=== PATIENT | male | born 1965 | race Hispanic/Latino ===

== ENCOUNTER 2020-05-10 10:20 | Inpatient (IN) | payer SELFPAY ==
[2020-05-10 11:31] LABS: Absolute Lymphocytes (CBC) 0.7 K/uL (0.7-4.9); Basophils % 0.3 % (0-1.3); Hematocrit 45.3 % (39.6-49.0); Lymphocytes % 14.3 % (15.3-44.8); MPV 8.4 fL (7.6-11.3); RBC Red Blood Cell Count 5.24 M/uL (4.33-5.43)
[2020-05-10 11:33] LABS: Protime INR 1.04
[2020-05-10 11:41] LABS: Arterial Blood Carboxyhemoglob 1.2 % (0-1.5); Blood Gas Oxyhemoglobin 94.9 % (94-97); Blood O2 Saturation 96.8 % (92-98.5)
--- NOTE | 2020-05-10 11:50 | RAD REPORT ---
EXAM DESCRIPTION: RAD - Chest Single View - 05/10/2020 11:29 am CLINICAL HISTORY: r/o pneumonia Chest pain. COMPARISON: No comparisons FINDINGS: Portable technique limits examination quality. Severe bilateral pulmonary opacities noted particularly the right likely compatible with pulmonary in fection. The heart is upper limit normal in size.
[2020-05-10 11:53] LABS: Albumin 3.2 g/dL (3.4-5.0); Bilirubin Direct 0.3 mg/dL (0-0.2); Bilirubin Total 0.5 mg/dL (0.2-1.0); Ferritin 890.5 ng/mL (26-388); Potassium 3.8 mmol/L (3.5-5.1); Protein, Total 7.8 g/dL (6.4-8.2)
[2020-05-10] MEDS ORDERED: ACETAMINOPHEN 500 MG TAB ONE (11:55)
[2020-05-10] MEDS ORDERED: NA CHLORIDE 0.9% 500 ML ONE (11:55)
[2020-05-10] MEDS ORDERED: NA CHLORIDE 0.9% 2,000 ML ONE (11:55)
[2020-05-10] MEDS ORDERED: METHYLPREDNISOLONE 125 MG INJ ONE (11:55)
[2020-05-10] MEDS ORDERED: CEFEPIME/SWI 1gm 20 ML ONE (11:56)
[2020-05-10] MEDS ORDERED: AZITHROMYCIN IV 500 MG in NA CHLORIDE 0.9% 250 ML IVPB ONE (12:00)
--- NOTE | 2020-05-10 12:36 | RAD REPORT ---
EXAM DESCRIPTION: CT - Chest For Pe Angio - 05/10/2020 12:31 pm CLINICAL HISTORY: Chest pain. Chest pain;SOB COMPARISON: No comparisons TECHNIQUE: CT angiogram of the pulmonary arteries was performed with MIP. All CT scans are performed using dose optimization technique as appropriate and may include automated exposure control or mA/KV adjustment according to patient size. FINDINGS: No evidence of pulmonary thromboembolism. No acute aortic finding demonstrated. Significant airspace consolidation is present involving the right lung. Moderate interstitial and air space opacity involves the left lung. No significant pericardial or pleural fluid. No concerning bony finding. Fatty liver. IMPRESSION: No evidence of pulmonary thromboembolism. Significant airspace consolidation is present, greater on the right, most compatible with pneumonia.
--- NOTE | 2020-05-10 13:26 | ER ---
Nurse's Notes [facility] Name: Beck Weber Age: 55 yrs Sex: Male : 1965 Arrival Date: 05/10/2020 Time: 10:24 Bed 18 Private MD: Diagnosis: Pneumonia due to other specified infectious organisms;Respiratory failure, unspecified with hypoxia;Coronavirus infection, unspecified Presentation: 05/10 10:43 Chief complaint: Patient states: tested positive for COVID last Saturday05-02-20, has iw been having increasing SOB, is 73% on RA, placed on 5 L NC up to 83%. Coronavirus screen: Client presents with at least one sign or symptom that may indicate coronavirus-19. Standard/surgical mask placed on the client. Provider contacted for isolation considerations. Ebola Screen: Patient negative for fever greater than or equal to 101.5 degrees Fahrenheit, and additional compatible Ebola Virus Disease symptoms Patient denies exposure to infectious person. Patient denies travel to an Ebola-affected area in the 21 days before illness onset. No symptoms or risks identified at this time. Initial Sepsis Screen: Does the patient meet any 2 criteria? RR > 20 per min. HR > 90 bpm. Does the patient have a suspected source of infection? Yes: Productive cough/pneumonia. 10:43 Method Of Arrival: Ambulatory iw 10:46 Risk Assessment: Do you want to hurt yourself or someone else? Patient reports no iw desire to harm self or others. Onset of symptoms was May 02, 2020. 10:46 Acuity: PAUL 2 iw Historical: - Allergies: 10:46 No Known Allergies; iw - Home Meds: 10:46 unknown BP med [Active]; iw - PMHx: 10:46 Hypertension; iw - PSHx: 10:46 None; iw - Immunization history:: Adult Immunizations unknown. - Social history:: Smoking status: unknown. Screenin:13 Abuse screen: Denies threats or abuse. Nutritional screening: No deficits noted. jd3 Tuberculosis screening: No symptoms or risk factors identified. Fall Risk IV access (20 points). Ambulatory Aid- None/Bed Rest/Nurse Assist (0 pts). Gait- Normal/Bed Rest/Wheelchair (0 pts) Mental Status- Oriented to own ability (0 pts). Total Corey Fall Scale indicates No Risk (0-24 pts). Assessment: 10:55 General: Appears uncomfortable, Behavior is calm, cooperative, appropriate for age, jd3 anxious. Pain: Complains of pain in chest Pain does not radiate. Quality of pain is described as pressure, Pain began gradually, Also complains of shortness of breath. Neuro: Level of Consciousness is awake, alert, obeys commands, Oriented to person, place, time, situation. Cardiovascular: Heart tones present Capillary refill < 3 seconds Patient's skin is warm and dry. Rhythm is sinus tachycardia. Respiratory: Reports shortness of breath at rest Airway is patent Respiratory effort is labored, Respiratory pattern is tachypnea Breath sounds are diminished bilaterally. GI: No signs and/or symptoms were reported involving the gastrointestinal system. : No signs and/or symptoms were reported regarding the genitourinary system. EENT: No signs and/or symptoms were reported regarding the EENT system. Derm: Skin is intact, Skin is dry, Skin is normal, Skin temperature is warm. Musculoskeletal: Circulation, motion, and sensation intact. Range of motion: intact in all extremities. 11:50 Reassessment: Patient and/or family updated on plan of care and expected duration. Pain jd3 level reassessed. Patient is alert, oriented x 3, equal unlabored respirations, skin warm/dry/pink. Patient states feeling better. Respiratory: Airway is patent Respiratory effort is even, unlabored, Respiratory pattern is symmetrical, tachypnea. 12:56 Reassessment: Patient and/or family updated on plan of care and expected duration. Pain jd3 level reassessed. Patient is alert, oriented x 3, equal unlabored respirations, skin warm/dry/pink. Patient states feeling better. 14:00 Reassessment: Patient appears in no apparent distress at this time. Patient and/or jd3 family updated on plan of care and expected duration. Pain level reassessed. Patient is alert, oriented x 3, equal unlabored respirations, skin warm/dry/pink. respiratory therapy at bedside. charting continued in [facility]. Vital Signs: 10:43 BP 141 / 98; Pulse 117; Resp 28 S; Temp 100.6(TE); Pulse Ox 73% on R/A; iw 11:08 Weight 86.18 kg; jd3 12:55 BP 120 / 83; Pulse 100; Resp 22 S; Pulse Ox 96% on Non-rebreather mask; jd3 14:00 BP 134 / 87; Pulse 98; Resp 22 S; Pulse Ox 95% on Non-rebreather mask; jd3 ED Course: 10:24 Patient arrived in ED. as 10:36 Zeyad Heck PA is PHCP. cp 10:36 Michelle Cali MD is Attending Physician. cp 10:46 Triage completed. iw 10:55 Mir Hameed RN is Primary Nurse. jd3 10:55 Inserted saline lock: 20 gauge in right antecubital area, using aseptic technique. jd3 Blood collected. 11:09 Arm band placed on. jd3 12:42 CT Chest For PE Angio In Process Unspecified. EDMS 13:06 Anil Zuniga DO is Hospitalizing Provider. cp 13:13 Oxygen administration via non-rebreather mask \T\ 15L/min. jd3 14:02 No provider procedures requiring assistance completed. Patient admitted, IV remains in jd3 place. 14:02 Patient has correct armband on for positive identification. Placed in gown. Bed in low jd3 position. Call light in reach. Side rails up X2. case monitor on. Pulse ox on. NIBP on. 21:21 Urine Culture Sent. ds4 21:21 Urine Microscopic Only Sent. ds4 Administered Medications: 12:05 Drug: Tylenol 1000 mg Route: PO; jd3 13:00 Follow up: Response: No adverse reaction; Temperature is decreased jd3 12:05 Drug: NS 0.9% (30 ml/kg) 30 ml/kg Route: IV; Rate: bolus; Site: right antecubital; jd3 13:00 Follow up: Response: No adverse reaction; IV Status: Order to discontinue infusion; IV jd3 Intake: 1500ml 12:05 Drug: SOLU-Medrol 125 mg Route: IVP; Site: right antecubital; jd3 13:00 Follow up: Response: No adverse reaction jd3 12:05 Drug: Cefepime 2 grams Route: IVPB; Rate: 200 ml/hr; Infused Over: 30 mins; Site: right jd3 antecubital; 13:00 Follow up: Response: No adverse reaction; IV Status: Completed infusion jd3 12:37 Drug: Zithromax 500 mg Route: IVPB; Infused Over: 1 hrs; Site: right antecubital; ca1 13:30 Follow up: Response: No adverse reaction; IV Status: Completed infusion jd3 Intake: 13:00 IV: 1500ml; Total: 1500ml. jd3 Outcome: 13:07 Decision to Hospitalize by Provider. cp 14:03 Admitted to ER Hold. Please see [facility] for further documentation. jd3 14:03 Condition: stable 14:03 Instructed on the need for admit, Demonstrated understanding of instructions. 05/12 20:59 Patient left the ED. ea Signatures: Dispatcher [employer] Leslie Guzman Irene, RN RN Raphael Rangel ds4 Zeyad Heck PA PA cp Jennifer Palacio RN Mir Molina ea, RN RN jd3 Kandi Gonzalez RN RN ca1 Corrections: (The following items were deleted from the chart) 05/10 19:43 19:43 Response: No adverse reaction jd3 jd3
--- NOTE | 2020-05-10 13:26 | EDPHYS ---
Physician Documentation [facility] Name: Beck Webre Age: 55 yrs Sex: Male : 1965 Arrival Date: 05/10/2020 Time: 10:24 Bed 18 Private MD: ED Physician Michelle Cali HPI: 05/10 11:00 This 55 yrs old Male presents to ER via Ambulatory with complaints of Chest cp Pain, Shortness Of Breath - covid+. 11:00 The patient has shortness of breath at rest. cp 11:00 Onset: The symptoms/episode began/occurred gradually, last week. Duration: The symptoms cp are continuous, and are steadily getting worse. Patient reports testing positive for COVID-19 on 05-02-2020. Increasing shortness of breath and worsening cough since last week. Reports fever. No currently taking any medications. Reports hospitalized with similar symptoms. Historical: - Allergies: 10:46 No Known Allergies; iw - Home Meds: 10:46 unknown BP med [Active]; iw - PMHx: 10:46 Hypertension; iw - PSHx: 10:46 None; iw - Immunization history:: Adult Immunizations unknown. - Social history:: Smoking status: unknown. ROS: 11:10 Constitutional: Positive for fever, Negative for poor PO intake. cp 11:10 Eyes: Negative for injury, pain, redness, and discharge. cp 11:10 ENT: Negative for ear pain, sore throat, difficulty swallowing, difficulty handling secretions. 11:10 Cardiovascular: Negative for chest pain, edema, palpitations. 11:10 Respiratory: Positive for cough, "sounds productive", shortness of breath, at rest. 11:10 Abdomen/GI: Negative for abdominal pain, nausea, vomiting, and diarrhea. 11:10 Back: Negative for radiated pain. 11:10 Neuro: Negative for altered mental status, headache, syncope, weakness. 11:10 All other systems are negative. Exam: 11:15 Head/Face: Normocephalic, atraumatic. cp 11:15 Constitutional: The patient appears alert, awake, non-diaphoretic, non-toxic, well developed, well nourished, in obvious distress, moderately distressed. 11:15 Eyes: Periorbital structures: appear normal, Conjunctiva: normal, no exudate, no cp injection, Sclera: no appreciated abnormality, Lids and lashes: appear normal, bilaterally. 11:15 ENT: External ear(s): are unremarkable, Nose: is normal, Mouth: Lips: moist, Oral mucosa: moist, Posterior pharynx: Airway: no evidence of obstruction, patent. 11:15 Neck: ROM/movement: is normal, is supple, without pain, no range of motions limitations. 11:15 Chest/axilla: Inspection: normal, Palpation: is normal, no crepitus, no tenderness. 11:15 Cardiovascular: Rate: tachycardic, Rhythm: regular, Edema: is not appreciated, JVD: is not appreciated. 11:15 Respiratory: moderate respiratory distress is noted, Respirations: labored breathing, that is moderate, intercostal retractions, are absent, Breath sounds: bronchial sounds, that are mild, are heard diffusely, decreased breath sounds, that are moderate, throughout, stridor, is not appreciated, wheezing: is not appreciated. 11:15 Abdomen/GI: Inspection: abdomen appears normal, Bowel sounds: active, all quadrants, Palpation: abdomen is soft and non-tender, in all quadrants, rebound tenderness, is not appreciated, voluntary guarding, is not appreciated, involuntary guarding, is not appreciated. 11:15 Back: pain, is absent, ROM is normal. 11:15 Skin: no rash present. 11:15 Neuro: Orientation: to person, place \\T\\ time. Mentation: is normal, Cerebellar function: is grossly normal, Motor: moves all fours, strength is normal, Sensation: is normal. 11:30 ECG was reviewed by the Attending Physician. cp Vital Signs: 10:43 BP 141 / 98; Pulse 117; Resp 28 S; Temp 100.6(TE); Pulse Ox 73% on R/A; iw 11:08 Weight 86.18 kg; jd3 12:55 BP 120 / 83; Pulse 100; Resp 22 S; Pulse Ox 96% on Non-rebreather mask; jd3 14:00 BP 134 / 87; Pulse 98; Resp 22 S; Pulse Ox 95% on Non-rebreather mask; jd3 MDM: 10:53 Patient medically screened. cp 13:04 Physician consultation: Anil Zuniga DO was called at 13:05, was contacted at 13:05, cp regarding admission, to the telemetry unit. patient's condition, and will see patient in ED, shortly. 13:06 Data reviewed: vital signs, nurses notes, lab test result(s), EKG, radiologic studies, cp CT scan, plain films, and as a result, I will admit patient. 13:06 Test interpretation: by ED physician or midlevel provider: ECG, plain radiologic cp studies. 05/10 10:56 Order name: ABG cp 05/10 10:56 Order name: Urine Culture 05/10 10:56 Order name: Blood Culture Adult (2) 05/10 10:56 Order name: Urine Microscopic Only 05/10 11:30 Order name: ABG 05/10 11:44 Order name: Lactate; Complete Time: 11:57 EDMS 05/10 11:44 Order name: CBC with Automated Diff; Complete Time: 11:57 EDMS 05/10 13:04 Interpretation: Normal except: CRYSTAL% 79.2; LYM% 14.3. 05/10 11:44 Order name: Protime (+INR); Complete Time: 11:57 EDMS 05/10 11:44 Order name: PTT, Activated Partial Thromb; Complete Time: 11:57 EDMS 05/10 11:44 Order name: D-Dimer; Complete Time: 11:57 EDMS 05/10 11:54 Order name: Basic Metabolic Panel; Complete Time: 11:57 EDMS 05/10 11:54 Order name: Liver (Hepatic) Function; Complete Time: 11:57 EDMS 05/10 11:54 Order name: C-Reactive Protein; Complete Time: 11:57 EDMS 05/10 11:54 Order name: Lipase; Complete Time: 11:57 EDMS 05/10 11:54 Order name: Ferritin; Complete Time: 11:57 EDMS 05/10 12:06 Order name: ABG Arterial Blood Gas; Complete Time: 12:59 EDMS 05/10 10:56 Order name: Chest Single View XRAY 05/10 10:56 Order name: Accucheck; Complete Time: 11:07 cp 05/10 10:56 Order name: Cardiac monitoring; Complete Time: 11:32 cp 05/10 10:56 Order name: EKG - Nurse/Tech; Complete Time: 11:32 cp 05/10 10:56 Order name: IV Saline Lock - Large Bore; Complete Time: 11:07 cp 05/10 10:56 Order name: Labs collected and sent; Complete Time: 11:08 cp 05/10 10:56 Order name: O2 Per Protocol; Complete Time: 11:08 cp 05/10 10:56 Order name: O2 Sat Monitoring; Complete Time: 11:08 cp 05/10 11:51 Order name: RAD; Complete Time: 11:57 EDMS 05/10 11:58 Order name: CT Chest For PE Angio; Complete Time: 12:59 cp 05/10 12:25 Order name: Procalcitonin EDMS 05/10 12:25 Order name: Blood Culture EDMS 05/10 12:25 Order name: Blood Culture EDMS 05/10 13:56 Order name: COVID-19/FLU A+B EDMS 05/10 21:22 Order name: Urine Dipstick--Ancillary (enter results) ds4 05/10 21:27 Order name: Urine Dipstick-Ancillary EDMS 05/11 06:08 Order name: Comprehensive Metabolic Panel EDMS 05/11 06:08 Order name: Liver (Hepatic) Function EDMS 05/11 06:08 Order name: C-Reactive Protein EDMS 05/11 06:08 Order name: Ferritin EDMS 05/11 16:16 Order name: Urinalysis EDMS 05/11 16:22 Order name: Urine Microscopic Only EDMS 05/12 06:01 Order name: Comprehensive Metabolic Panel EDMS 05/12 06:01 Order name: Liver (Hepatic) Function EDMS 05/12 06:01 Order name: C-Reactive Protein EDMS 05/12 06:01 Order name: Magnesium EDMS 05/12 06:01 Order name: Ferritin EDMS 05/10 10:56 Order name: Urine Dipstick-Ancillary (obtain specimen); Complete Time: 21:21 cp EC:30 Rate is 108 beats/min. Rhythm is regular. OH interval is normal. QRS interval is cp normal. QT interval is normal. T waves are Inverted in lead aVR. Interpreted by me. Reviewed by me. Administered Medications: 12:05 Drug: Tylenol 1000 mg Route: PO; jd3 13:00 Follow up: Response: No adverse reaction; Temperature is decreased jd3 12:05 Drug: NS 0.9% (30 ml/kg) 30 ml/kg Route: IV; Rate: bolus; Site: right antecubital; jd3 13:00 Follow up: Response: No adverse reaction; IV Status: Order to discontinue infusion; IV jd3 Intake: 1500ml 12:05 Drug: SOLU-Medrol 125 mg Route: IVP; Site: right antecubital; jd3 13:00 Follow up: Response: No adverse reaction jd3 12:05 Drug: Cefepime 2 grams Route: IVPB; Rate: 200 ml/hr; Infused Over: 30 mins; Site: right jd3 antecubital; 13:00 Follow up: Response: No adverse reaction; IV Status: Completed infusion jd3 12:37 Drug: Zithromax 500 mg Route: IVPB; Infused Over: 1 hrs; Site: right antecubital; ca1 13:30 Follow up: Response: No adverse reaction; IV Status: Completed infusion jd3 Disposition: 05/10/20 13:07 Hospitalization ordered by Anil Zuniga for Inpatient Admission. Preliminary diagnosis are Pneumonia due to other specified infectious organisms, Respiratory failure, unspecified with hypoxia, Coronavirus infection, unspecified. - Bed requested for Telemetry/MedSurg (Inpatient). - Status is Inpatient Admission. ea - Condition is Serious. - Problem is new. - Symptoms have improved. Addendum: 05/16/2020 19:18 Co-signature as Attending Physician, Michelle Cali MD. m a2 Signatures: Dispatcher [employer] EDMS Dinah Rogers Diana, RN RN dw Williams, Irene, RN RN iw Page, Corey, PA PA cp Antunez, Elena, RN RN ea Davies, Jonathon, RN RN jd3 Alzahri, Mohammad, MD MD ga2 Kandi Gonzalez RN RN ca1 Corrections: (The following items were deleted from the chart) 05/10 12:46 11:46 CORONAVIRUS+MR.LAB.BRZ ordered. EDMS EDMS 12:47 11:46 Influenza Screen (A \\T\\ B)+BA.LAB.BRZ ordered. EDMS EDMS 13:12 11:45 CBC+H.LAB.BRZ ordered. EDMS EDMS 13:15 11:45 BASIC METABOLIC PANEL+C.LAB.BRZ ordered. EDMS EDMS 13:15 11:45 HEPATIC FUNCTION+C.LAB.BRZ ordered. EDNY EDMS 13:15 11:45 LIPASE+C.LAB.BRZ ordered. EDNY EDMS 13:15 11:46 Procalcitonin+C.LAB.BRZ ordered. EDNY EDMS 13:15 11:46 PROTIME (+INR)+COAG.LAB.BRZ ordered. EDNY EDMS 13:15 11:46 PTT, ACTIVATED+COAG.LAB.BRZ ordered. EDNY EDNY 13:15 11:46 TROPONIN (EMERG DEPT USE ONLY)+C.LAB.BRZ ordered. EDNY EDMS 13:15 11:46 C-REACTIVE PROTEIN+C.LAB.BRZ ordered. EDNY EDMS 13:15 11:46 D-DIMER+COAG.LAB.BRZ ordered. [facility] EDNY 13:15 11:46 FERRITIN+C.LAB.BRZ ordered. [facility] EDNY 13:16 11:45 LACTATE+C.LAB.BRZ ordered. [facility] EDNY 13:29 13:07 Hospitalization Ordered by Anil Zuniga DO for Inpatient Admission. Preliminary bd diagnosis is Pneumonia due to other specified infectious organisms; Respiratory failure, unspecified with hypoxia; Coronavirus infection, unspecified. Bed requested for Telemetry/MedSurg (Inpatient). Status is Inpatient Admission. Condition is Serious. Problem is new. Symptoms have improved. cp / 18:42 05/10 13:29 05/10/2020 13:07 Hospitalization Ordered by Anil Zuniga DO for Inpatient dw Admission. Preliminary diagnosis is Pneumonia due to other specified infectious organisms; Respiratory failure, unspecified with hypoxia; Coronavirus infection, unspecified. Bed requested for [facility] ER HOLD. Status is Inpatient Admission. Condition is Serious. Problem is new. Symptoms have improved. bd 05/12 18:42 18:42 05/10/2020 13:07 Hospitalization Ordered by Anil Zuniga DO for Inpatient dw Admission. Preliminary diagnosis is Pneumonia due to other specified infectious organisms; Respiratory failure, unspecified with hypoxia; Coronavirus infection, unspecified. Bed requested for Telemetry/MedSurg (Inpatient). Status is Inpatient Admission. Condition is Serious. Problem is new. Symptoms have improved. dw 20:59 18:42 05/10/2020 13:07 Hospitalization Ordered by Anil Prezas DO for Inpatient ea Admission. Preliminary diagnosis is Pneumonia due to other specified infectious organisms; Respiratory failure, unspecified with hypoxia; Coronavirus infection, unspecified. Bed requested for Telemetry/MedSurg (Inpatient). Status is Inpatient Admission. Condition is Serious. Problem is new. Symptoms have improved. dw
--- NOTE | 2020-05-10 13:40 | P.HP ---
Certification for Inpatient Patient admitted to: Inpatient With expected LOS: >2 Midnights Patient will require the following post-hospital care: None Practitioner: I am a practitioner with admitting privileges, knowledge of patient current condition, hospital course, and medical plan of care. Services: Services provided to patient in accordance with Admission requirements found in Title 42 Section 412.3 of the Code of Federal Regulations Patient History Date of Service: 05/10/20 Primary Care Provider: Caity Luna NP Reason for admission: Shortness of breath History of Present Illness: 55-year-old male with history of hypertension presented to the emergency room with increasing shortness of breath. Patient recently diagnosed with COVID 19 on 05/04/2020. was diagnosed around the same time and is currently hospitalize. He start to have increasing shortness of breath, fever, chills with body aches. Symptoms worsened. He denied any nausea, vomiting, diarrhea. He came to the ER for further evaluation. In the ER patient was found to be hypoxic with room-air saturations around mid 70s. Patient required initially nasal cannula then transition to non- rebreather. Oxygen saturations better. CT scan showed bilateral pneumonia. No pulmonary embolism noted. CRP elevated at 2 002, ferritin 890. White count 4.6, hemoglobin 15. Lactic acid normal. Pro calcitonin 0.11. Sodium 135, potassium 3.8. GFR 79. Glucose 104. Patient treated in the ER. Patient improved. Patient admitted for further evaluation and treatment. When I saw the patient ER, patient did not appear septic. Patient improved on non-rebreather. Allergies No Known Allergies Allergy (Unverified 10/10/11 09:21) - Past Medical/Surgical History Diabetic: No -: Hypertension Past Surgical History: Reviewed- Non-Contributory Psychosocial/ Personal History: Patient lives at home - Family History Family History: Reviewed- Non-Contributory - Social History Smoking Status: Never smoker Alcohol use: Yes CD- Drugs: No Caffeine use: No Place of Residence: Home Review of Systems General: Fever, Chills, Weakness, As per HPI Eyes: Unremarkable ENT: Unremarkable Respiratory: Cough, Shortness of Breath, SOB with Excertion, As per HPI Cardiovascular: Unremarkable Gastrointestinal: Unremarkable Genitourinary: Unremarkable Musculoskeletal: Unremarkable Integumentary: Unremarkable Neurological: Unremarkable Lymphatics: Unremarkable Physical Examination - Physical Exam General: Alert, In no apparent distress, Oriented x3, Cooperative HEENT: Atraumatic Neck: Supple Respiratory: Other (Patient currently on non-rebreather. Oxygen saturations around 95%.) Cardiovascular: Normal pulses Gastrointestinal: No guarding Integumentary: No erythema, No warmth, No cyanosis Neurological: Normal speech, Normal strength at 5/5 x4 extr, Normal tone, Normal affect - Studies Laboratory Data (last 24 hrs) 05/10/20 10:56: PT Cancelled, INR Cancelled, APTT Cancelled 05/10/20 10:56: WBC Cancelled, Hgb Cancelled, Hct Cancelled, Plt Count Cancelled 05/10/20 10:56: Sodium Cancelled, Potassium Cancelled, BUN Cancelled, Creatinine Cancelled, Glucose Cancelled, Total Bilirubin Cancelled, AST Cancelled, ALT Cancelled, Alkaline Phosphatase Cancelled, Lipase Cancelled 05/10/20 10:55: PT 12.3, INR 1.04, APTT 31.1 05/10/20 10:55: WBC 4.60, Hgb 15.0, Hct 45.3, Plt Count 181 05/10/20 10:55: Sodium 135 L, Potassium 3.8, BUN 18, Creatinine 0.98, Glucose 104, Total Bilirubin 0.5, AST 95 H, ALT 113 H, Alkaline Phosphatase 50, Lipase 8 7 Assessment and Plan - Plan Impression: Dyspnea secondary to acute respiratory failure with hypoxia related to bilateral COVID 19 pneumonia Hypertension Plan: Dyspnea secondary to acute respiratory failure with hypoxia related to bilateral COVID 19 pneumonia: Patient admitted for further evaluation and treatment. Continue IV Solu-Medrol, ivermectin, and supplementation. Discussed initiation of IV Remdesivir due to the severity of his symptoms. Pharmacy to monitor and a djust. Plan of care discussed with patient in detail. Patient agrees with plan of care. Will need to monitor liver function test while on Remdesivir. Continue monitor serial CRP and ferritin. Currently on non-rebreather. Patient would benefit with high-flow oxygen. Respiratory to wean down to nasal cannula. Pulmonology consulted to further evaluate. Will start Eliquis for DVT prophylaxis. Encourage incentive spirometer. Encourage proning. Continue monitor closely. Anticipate improvement over the next 72 hr. Hypertension: Continue home medication of lisinopril Discharge Plan: Home Plan to discharge in: Greater than 2 days - Advance Directives Does patient have a Living Will: No Does patient have a Durable POA for Healthcare: No - Code Status/Comfort Care Code Status Assessed: Yes (Patient is full code) Time Spent Managing Pts Care (In Minutes): 55
[2020-05-10 13:55] LABS: SARS-COV-2 RT PCR POSITIVE (NEGATIVE)
[2020-05-10] MEDS ORDERED: ALBUTEROL INHALER 60 PUFF/8 GM IH PRN (15:47)
[2020-05-10] MEDS ORDERED: ONDANSETRON 4 MG/2 ML VIAL IV PRN (15:47)
[2020-05-10] MEDS ORDERED: IVERMECTIN 3 MG TABLET PO ONE (16:00)
[2020-05-10 16:09] VITALS: BMI 35.5
[2020-05-10] MEDS ORDERED: Remdesivir 200 MG in NA CHLORIDE 0.9% 250 ML IV ONE (17:00)
[2020-05-10] MEDS ORDERED: METHYLPREDNISOLONE 40 MG INJ ONE (18:21)
[2020-05-10] MEDS: ASCORBIC ACID 500 MG TABLET PO SCH ×2 (18:30→21:03)
[2020-05-10] MEDS: METHYLPREDNISOLONE 125 MG INJ IV SCH (18:30)
[2020-05-10] MEDS: APIXABAN 5 MG TABLET PO SCH (21:01)
[2020-05-10] MEDS: THIAMINE HCL 100 MG TABLET PO SCH (21:02)
[2020-05-10] MEDS: MELATONIN 5 MG TABLET PO SCH (21:02)
[2020-05-10] MEDS: BENZONATATE 100 MG CAP PO PRN (21:03)
[2020-05-10] MEDS ORDERED: BENZONATATE 100 MG CAP PO ONE (21:12)
[2020-05-10] MEDS ORDERED: APIXABAN 5 MG TABLET ONE (21:12)
[2020-05-10] MEDS ORDERED: ASCORBIC ACID 500 MG TABLET ONE (21:12)
[2020-05-10] MEDS ORDERED: THIAMINE HCL 100 MG TABLET ONE (21:12)
[2020-05-10 21:27] LABS: Urine Blood NEGATIVE (NEG); Urine Glucose NEGATIVE (NEG); Urine Protein 1+ (NEG)
[2020-05-11] MEDS: METHYLPREDNISOLONE 125 MG INJ IV SCH ×3 (00:18→16:48)
[2020-05-11] MEDS ORDERED: METHYLPREDNISOLONE 125 MG INJ ONE ×3 (00:28→17:00)
[2020-05-11] MEDS: BENZONATATE 100 MG CAP PO PRN (04:30)
[2020-05-11] MEDS ORDERED: BENZONATATE 100 MG CAP PO ONE (04:35)
[2020-05-11 06:02] LABS: ALT/SGPT 82 U/L (12-78); AST/SGOT 58 U/L (15-37); Albumin 2.5 g/dL (3.4-5.0); Alkaline Phosphatase 52 U/L (45-117); BUN Blood Urea Nitrogen 17 mg/dL (7-18); Bicarbonate 26 mmol/L (21-32); Bilirubin Direct 0.2 mg/dL (0-0.2); Bilirubin Total 0.4 mg/dL (0.2-1.0); Ferritin 751.9 ng/mL (26-388); Glucose Level 156 mg/dL (74-106); Potassium 4.1 mmol/L (3.5-5.1); Protein, Total 6.6 g/dL (6.4-8.2); Sodium Level 138 mmol/L (136-145)
--- NOTE | 2020-05-11 08:28 | P.CNS ---
Date of Consult: 05/11/20 Primary Care Provider: Caity Luna NP Chief Complaint: Shortness of breath History of Present Illness: Patient is 55 years of age with a history hypertension admitted with increasing shortness of breath diagnosed with montgomery virus is is also symptomatic is a shortness of breath fever chills bodyaches is still requiring high concentrations of oxygen although is feeling slightly better Allergies No Known Allergies Allergy (Unverified 10/10/11 09:21) - Past Medical/Surgical History Diabetic: No -: Hypertension Psychosocial/ Personal History: Patient lives at home - Social History Alcohol use: No CD- Drugs: No Caffeine use: No Place of Residence: Home Review of Systems General: Weakness Respiratory: Cough, Shortness of Breath Physical Examination Temp Pulse Resp BP Pulse Ox 98.1 F 89 28 H 137/75 94 05/11/20 04:00 05/11/20 04:00 05/11/20 04:00 05/11/20 04:00 05/11/20 04:00 General: Alert, In no apparent distress, Oriented x3 Respiratory: Clear to auscultation bilaterally, Diminished Cardiovascular: No edema, Regular rate/rhythm Laboratory Data (last 24 hrs) 05/10/20 10:56: PT Cancelled, INR Cancelled, APTT Cancelled 05/10/20 10:56: WBC Cancelled, Hgb Cancelled, Hct Cancelled, Plt Count Cancelled 05/10/20 10:56: Sodium Cancelled, Potassium Cancelled, BUN Cancelled, Creatinine Cancelled, Glucose Cancelled, Total Bilirubin Cancelled, AST Cancelled, ALT Cancelled, Alkaline Phosphatase Cancelled, Lipase Cancelled 05/10/20 10:55: PT 12.3, INR 1.04, APTT 31.1 05/10/20 10:55: WBC 4.60, Hgb 15.0, Hct 45.3, Plt Count 181 05/10/20 10:55: Sodium 135 L, Potassium 3.8, BUN 18, Creatinine 0.98, Glucose 104, Total Bilirubin 0.5, AST 95 H, ALT 113 H, Alkaline Phosphatase 50, Lipase 87 - Problems (1) Acute respiratory failure due to severe acute respiratory syndrome coronavirus 2 (SARS-CoV-2) infection Current Visit: Yes Status: Acute Plan: Patient is to 55 years of age admitted with acute respiratory failure from montgomery virus is condition is stable still requiring high concentrations of oxygen CT pulmonary angiogram no evidence of pulmonary embolism CT changes very characteristic of montgomery virus labs reviewed no change in present treatment
[2020-05-11] MEDS: VITAMIN D 1000 UNIT TAB PO SCH (09:25)
[2020-05-11] MEDS: ASCORBIC ACID 500 MG TABLET PO SCH ×3 (09:26→20:54)
[2020-05-11] MEDS: lisinopriL 10 MG TAB PO SCH (09:26)
[2020-05-11] MEDS: THIAMINE HCL 100 MG TABLET PO SCH ×2 (09:26→20:54)
[2020-05-11] MEDS: ZINC SULFATE 220 MG CAP PO SCH (09:26)
[2020-05-11] MEDS: APIXABAN 5 MG TABLET PO SCH ×2 (09:26→20:54)
[2020-05-11] MEDS: Remdesivir 100 MG in NA CHLORIDE 0.9% 250 ML IV SCH (09:27)
[2020-05-11] MEDS ORDERED: THIAMINE HCL 100 MG TABLET ONE (09:36)
[2020-05-11] MEDS ORDERED: ZINC SULFATE 220 MG CAP ONE (09:37)
[2020-05-11] MEDS ORDERED: VITAMIN D 1000 UNIT TAB ONE (09:37)
[2020-05-11] MEDS ORDERED: APIXABAN 5 MG TABLET ONE (09:37)
[2020-05-11] MEDS ORDERED: ASCORBIC ACID 500 MG TABLET ONE ×2 (09:37→13:53)
[2020-05-11] MEDS ORDERED: lisinopriL 10 MG TAB ONE (09:37)
--- NOTE | 2020-05-11 10:47 | P.PN ---
Subjective Date of Service: 05/11/20 Primary Care Provider: Caity Luna NP Chief Complaint: Shortness of breath Subjective: Other (Patient is slowly improving. Currently on high-flow at 90% FiO2.) Physical Examination - Vital Signs Temperature: 98.3 F Blood Pressure: 127/59 Pulse: 98 Respirations: 22 Pulse Ox (%): 94 - Physical Exam General: Alert, In no apparent distress, Cooperative HEENT: Atraumatic Neck: Supple Respiratory: Other (Currently on high-flow oxygen at 90% Fi02.) Cardiovascular: Normal pulses, Regular rate/rhythm Neurological: Normal speech, Normal strength at 5/5 x4 extr, Normal tone, Normal affect - Studies Laboratory Data (last 24 hrs) 05/10/20 10:56: PT Cancelled, INR Cancelled, APTT Cancelled 05/10/20 10:56: WBC Cancelled, Hgb Cancelled, Hct Cancelled, Plt Count Cancelled 05/10/20 10:56: Sodium Cancelled, Potassium Cancelled, BUN Cancelled, Creatinine Cancelled, Glucose Cancelled, Total Bilirubin Cancelled, AST Cancelled, ALT Cancelled, Alkaline Phosphatase Cancelled, Lipase Cancelled 05/10/20 10:55: PT 12.3, INR 1.04, APTT 31.1 05/10/20 10:55: WBC 4.60, Hgb 15.0, Hct 45.3, Plt Count 181 05/10/20 10:55: Sodium 135 L, Potassium 3.8, BUN 18, Creatinine 0.98, Glucose 104, Total Bilirubin 0.5, AST 95 H, ALT 113 H, Alkaline Phosphatase 50, Lipase 87 Medications List Reviewed: Yes Assessment & Plan Discharge Plan: Home Plan to discharge in: 72 Hours Physician Review Additional Text: Impression: Dyspnea secondary to acute respiratory failure with hypoxia related to bilateral COVID 19 pneumonia Hypertension Plan: Dyspnea secondary to acute respiratory failure with hypoxia related to bilateral COVID 19 pneumonia: Patient is slowly improving. Less oxygen requirement noted. Currently on high-flow at 90% FiO2. Continue IV Solu-Medrol, ivermectin, Remdesivir, and supplementation. Continue to monitor liver function test while on Remdesivir. Continue monitor serial CRP and ferritin. Continue Eliquis for DVT prophylaxis. Encourage incentive spirometer. Encourage proning. Encourage ambulation if possible. Case discussed with pulmonology. Anticipate improvement over the next 72 hr. Hypertension: Continue home medication of lisinopril Time Spent Managing Pts Care (In Minutes): 55
--- NOTE | 2020-05-11 12:19 | EKG ---
Test Date: 2020-05-10 Test Time: 11:19:02 Dough Puncher: WANDA MEASUREMENT RESULTS: Intervals: Rate: 108 ME: 164 QRSD: 76 QT: 322 QTc: 431 [place]: P: 55 ME: 164 QRS: -78 T: 47 INTERPRETIVE STATEMENTS: Sinus tachycardia Possible Left atrial enlargement Pulmonary disease pattern Left anterior fascicular block Abnormal ECG Compared to ECG 12/07/2007 23:27:40 Left anterior fascicular block now present Sinus rhythm no longer present Left-axis deviation no longer present Electronically Signed On 05-11-20 12:15:36 [employer] by Nadir Chicas
[2020-05-11 16:14] LABS: Urine Appearance CLEAR; Urine Bilirubin NEGATIVE (NEG); Urine Blood NEGATIVE (NEG); Urine Color YELLOW; Urine Glucose NEGATIVE (NEG); Urine Protein 1+ (NEG); Urine Specific Gravity >=1.030 (1.005-1.030)
[2020-05-11 16:16] LABS: Urine Microscopic Reflex ORDER UMIC
[2020-05-11 16:22] LABS: Urine Bacteria NONE SEEN /HPF (NONE SEEN); Urine RBC NONE SEEN /HPF (NONE SEEN)
[2020-05-11] MEDS: MELATONIN 5 MG TABLET PO SCH (20:54)
[2020-05-12] MEDS: METHYLPREDNISOLONE 125 MG INJ IV SCH ×3 (00:11→17:00)
[2020-05-12] MEDS ORDERED: METHYLPREDNISOLONE 40 MG INJ ONE (00:14)
[2020-05-12] MEDS: ACETAMINOPHEN 500 MG TAB PO PRN (03:08)
[2020-05-12] MEDS ORDERED: ACETAMINOPHEN 500 MG TAB ONE (03:20)
[2020-05-12 06:00] LABS: Albumin 2.6 g/dL (3.4-5.0); Bilirubin Direct 0.2 mg/dL (0-0.2); Bilirubin Total 0.4 mg/dL (0.2-1.0); C-Reactive Protein 69.7 mg/L (<3.00); Ferritin 899.5 ng/mL (26-388); Magnesium 2.7 mg/dL (1.8-2.4); Potassium 4.4 mmol/L (3.5-5.1); Protein, Total 6.5 g/dL (6.4-8.2)
[2020-05-12] MEDS ORDERED: IVERMECTIN 3 MG TABLET PO ONE (08:27)
--- NOTE | 2020-05-12 08:44 | P.PN ---
Subjective Date of Service: 05/12/20 Primary Care Provider: Caity Luna NP Chief Complaint: Respiratory failure Subjective: Improving (Patient is feeling better although is requiring significant concentrations of oxygen no chain) Review of Systems General: Weakness Respiratory: Shortness of Breath Physical Examination - Vital Signs Temperature: 98.9 F Blood Pressure: 123/88 Pulse: 87 Respirations: 28 Pulse Ox (%): 95 - Studies Medications List Reviewed: Yes Assessment & Plan - Problems (Diagnosis) (1) Acute respiratory failure due to severe acute respiratory syndrome coronavirus 2 (SARS-CoV-2) infection Current Visit: Yes Status: Acute Plan: Respiratory failure objectively improving oxygen requirements are still very high significant desaturation on mild exertion advice to sleep in prone position vital signs stable at low-dose Lasix to see if it helps Physician Review Additional Text: Impression: Dyspnea secondary to acute respiratory failure with hypoxia related to bilateral COVID 19 pneumonia Hypertension Plan: Dyspnea secondary to acute respiratory failure with hypoxia related to bilateral COVID 19 pneumonia: Patient is slowly improving. Less oxygen requirement noted. Currently on high-flow at 90% FiO2. Continue IV Solu-Medrol, ivermectin, Remdesivir, and supplementation. Continue to monitor liver function test while on Remdesivir. Continue monitor serial CRP and ferritin. Continue Eliquis for DVT prophylaxis. Encourage incentive spirometer. Encourage proning. Encourage ambulation if possible. Case discussed with pulmonology. Anticipate improvement over the next 72 hr. Hypertension: Continue home medication of lisinopril
[2020-05-12] MEDS: THIAMINE HCL 100 MG TABLET PO SCH ×2 (09:00→22:17)
[2020-05-12] MEDS: FUROSEMIDE 20 MG TABLET PO SCH (09:00)
[2020-05-12] MEDS: APIXABAN 5 MG TABLET PO SCH ×2 (09:00→22:17)
[2020-05-12] MEDS: Remdesivir 100 MG in NA CHLORIDE 0.9% 250 ML IV SCH (09:00)
[2020-05-12] MEDS: ZINC SULFATE 220 MG CAP PO SCH (09:00)
[2020-05-12] MEDS: ASCORBIC ACID 500 MG TABLET PO SCH ×3 (09:00→22:17)
[2020-05-12] MEDS: VITAMIN D 1000 UNIT TAB PO SCH (09:00)
[2020-05-12] MEDS: lisinopriL 10 MG TAB PO SCH (09:00)
[2020-05-12] MEDS ORDERED: VITAMIN D 1000 UNIT TAB ONE (09:06)
[2020-05-12] MEDS ORDERED: METHYLPREDNISOLONE 125 MG INJ ONE ×2 (09:06→18:52)
[2020-05-12] MEDS ORDERED: APIXABAN 5 MG TABLET ONE (09:06)
[2020-05-12] MEDS ORDERED: lisinopriL 10 MG TAB ONE (09:07)
[2020-05-12] MEDS ORDERED: ZINC SULFATE 220 MG CAP ONE (09:07)
[2020-05-12] MEDS ORDERED: ASCORBIC ACID 500 MG TABLET ONE (09:07)
--- NOTE | 2020-05-12 09:59 | P.PN ---
Subjective Date of Service: 05/12/20 Primary Care Provider: Caity Luna NP Chief Complaint: Respiratory failure Subjective: Improving (Patient is slowly improving. Currently on high-flow at 95% FiO2.) Physical Examination - Vital Signs Temperature: 98.9 F Blood Pressure: 123/88 Pulse: 87 Respirations: 28 Pulse Ox (%): 95 - Studies Medications List Reviewed: Yes Assessment & Plan Discharge Plan: Home Plan to discharge in: 48 Hours Physician Review Additional Text: Physical exam: Patient alert, cooperative. No significant distress noted. Heart: Regular rate Lungs: Patient currently on high-flow at 90% Fi02. No significant respiratory distress noted. GI: No abdominal distention. Extremities: No edema to the lower extremity. Good range of motion to the upper and lower extremities without deficit. Impression: Dyspnea secondary to acute respiratory failure with hypoxia related to bilateral COVID 19 pneumonia Hypertension Plan: Dyspnea secondary to acute respiratory failure with hypoxia related to bilateral COVID 19 pneumonia: Patient continues to slowly improved. CRP and C reactive protein improved. Currently on high-flow at 95% Fi02. Respiratory to continue to wean down to nasal cannula. Continue IV Solu-Medrol, ivermectin, Remdesivir, and supplementation. Continue to monitor liver function test while on Remdesivir. Continue monitor serial CRP and ferritin. Continue Eliquis for DVT prophylaxis. Encourage incentive spirometer. Encourage proning. Encourage ambulation if possible. Case discussed with pulmonology. Anticipate improvement over the next 48 hr. Hypertension: Continue home medication of lisinopril Time Spent Managing Pts Care (In Minutes): 55
[2020-05-12] MEDS ORDERED: FUROSEMIDE 20 MG TABLET ONE (10:38)
[2020-05-12] MEDS ORDERED: THIAMINE HCL 100 MG TABLET ONE (10:39)
[2020-05-12] MEDS: MELATONIN 5 MG TABLET PO SCH (22:18)
[2020-05-13] MEDS: METHYLPREDNISOLONE 125 MG INJ IV SCH ×3 (00:36→16:51)
[2020-05-13 05:18] LABS: ALT/SGPT 296 U/L (12-78); AST/SGOT 196 U/L (15-37); Albumin 2.7 g/dL (3.4-5.0); Alkaline Phosphatase 55 U/L (45-117); BUN Blood Urea Nitrogen 25 mg/dL (7-18); Bicarbonate 29 mmol/L (21-32); Bilirubin Direct 0.3 mg/dL (0-0.2); Bilirubin Total 0.7 mg/dL (0.2-1.0); Ferritin 1370.4 ng/mL (26-388); Glucose Level 155 mg/dL (74-106); Potassium 4.3 mmol/L (3.5-5.1); Protein, Total 6.3 g/dL (6.4-8.2); Sodium Level 141 mmol/L (136-145)
[2020-05-13] MEDS: VITAMIN D 1000 UNIT TAB PO SCH (08:01)
[2020-05-13] MEDS: ASCORBIC ACID 500 MG TABLET PO SCH ×3 (08:01→20:07)
[2020-05-13] MEDS: ZINC SULFATE 220 MG CAP PO SCH (08:02)
[2020-05-13] MEDS: APIXABAN 5 MG TABLET PO SCH ×2 (08:02→20:08)
[2020-05-13] MEDS: THIAMINE HCL 100 MG TABLET PO SCH ×2 (08:02→20:08)
[2020-05-13] MEDS: FUROSEMIDE 20 MG TABLET PO SCH (08:08)
[2020-05-13] MEDS: lisinopriL 10 MG TAB PO SCH (08:09)
[2020-05-13] MEDS: Remdesivir 100 MG in NA CHLORIDE 0.9% 250 ML IV SCH (09:00)
--- NOTE | 2020-05-13 15:26 | P.PN ---
Subjective Date of Service: 05/13/20 Primary Care Provider: Caity Luna NP Chief Complaint: Respiratory failure Subjective: Other (Patient currently stable. On high-flow 100%.) Physical Examination - Vital Signs Temperature: 98.3 F Blood Pressure: 154/93 Pulse: 105 Respirations: 20 Pulse Ox (%): 91 - Studies Medications List Reviewed: Yes Assessment & Plan Discharge Plan: Home Plan to discharge in: 48 Hours Physician Review Additional Text: Physical exam: Patient alert, cooperative. No significant distress noted. Heart: Regular rate Lungs: Patient currently on high-flow at 100 % Fi02. No significant respiratory distress noted. GI: No abdominal distention. Extremities: No edema to the lower extremity. Good range of motion to the uppe r and lower extremities without deficit. Impression: Dyspnea secondary to acute respiratory failure with hypoxia related to bilateral COVID 19 pneumonia Hypertension Elevated liver function likely related to Remdesivir Plan: Dyspnea secondary to acute respiratory failure with hypoxia related to bilateral COVID 19 pneumonia: Patient continues to slowly improved. CRP and C reactive protein improved. Currently on high-flow at 95% Fi02. Respiratory to continue to wean down to nasal cannula. Remdesivir discontinued due to elevated liver function. Continue IV Solu-Medrol, ivermectin, and supplementation. Continue monitor serial CRP and ferritin. Continue Eliquis for DVT prophylaxis. Encourage incentive spirometer. Encourage proning. Encourage ambulation if possible. Case discussed with pulmonology. Anticipate improvement over the next 48 hr. Hypertension: Continue home medication of lisinopril Elevated liver function likely related to Remdesivir: Medication discontinued. Time Spent Managing Pts Care (In Minutes): 55
[2020-05-13] MEDS: METOPROLOL TAR 25 MG TAB PO SCH (16:51)
[2020-05-13] MEDS: ACETAMINOPHEN 500 MG TAB PO PRN ×2 (16:52→22:15)
[2020-05-13] MEDS: MELATONIN 5 MG TABLET PO SCH (20:07)
[2020-05-14] MEDS: METHYLPREDNISOLONE 125 MG INJ IV SCH ×3 (00:25→16:58)
[2020-05-14] MEDS: METOPROLOL TAR 25 MG TAB PO SCH ×2 (05:44→17:00)
[2020-05-14 06:08] LABS: Albumin 2.8 g/dL (3.4-5.0); Bilirubin Direct 0.3 mg/dL (0-0.2); Bilirubin Total 0.7 mg/dL (0.2-1.0); Protein, Total 6.6 g/dL (6.4-8.2)
[2020-05-14] MEDS: lisinopriL 10 MG TAB PO SCH (08:23)
[2020-05-14] MEDS: APIXABAN 5 MG TABLET PO SCH ×2 (08:23→20:05)
[2020-05-14] MEDS: ASCORBIC ACID 500 MG TABLET PO SCH ×3 (08:23→20:05)
[2020-05-14] MEDS: ZINC SULFATE 220 MG CAP PO SCH (08:24)
[2020-05-14] MEDS: THIAMINE HCL 100 MG TABLET PO SCH ×2 (08:24→20:05)
[2020-05-14] MEDS: VITAMIN D 1000 UNIT TAB PO SCH (08:24)
[2020-05-14] MEDS: FUROSEMIDE 20 MG TABLET PO SCH (08:26)
[2020-05-14] MEDS: ACETAMINOPHEN 500 MG TAB PO PRN (15:27)
--- NOTE | 2020-05-14 16:10 | P.PN ---
Subjective Date of Service: 05/14/20 Primary Care Provider: Caity Luna NP Chief Complaint: Respiratory failure Subjective: Other (Patient is slowly improving. Still on high-flow oxygen.) Physical Examination - Vital Signs Temperature: 98 F Blood Pressure: 147/88 Pulse: 95 Respirations: 22 Pulse Ox (%): 89 - Studies Medications List Reviewed: Yes Assessment & Plan Discharge Plan: Home Plan to discharge in: 72 Hours Physician Review Additional Text: Physical exam: Patient alert, cooperative. No significant distress noted. Heart: Regular rate Lungs: Patient currently on high-flow at 95 % Fi02. No significant respiratory distress noted. GI: No abdominal distention. Extremities: No edema to the lower extremity. Good range of motion to the upper and lower extremities without deficit. Impression: Dyspnea secondary to acute respiratory failure with hypoxia related to bilateral COVID 19 pneumonia Hypertension Elevated liver function likely related to Remdesivir Plan: Dyspnea secondary to acute respiratory failure with hypoxia related to bilateral COVID 19 pneumonia: Patient continues to slowly improved. Less oxygen requirement at 95% FiO2 on high-flow today. Continue monitor C reactive protein and CRP. Will recheck chest x-ray tomorrow. Respiratory to continue to wean down to nasal cannula. Remdesivir has been discontinued due to elevated liver function. Continue monitor liver function. Continue IV Solu-Medrol, ivermectin, and supplementation. Continue Eliquis for DVT prophylaxis. Encourage incentive spirometer. Encourage proning. Encourage ambulation if possible. Case discussed with pulmonology. Anticipate improvement over the next 48-72 hr. Hypertension: Continue home medication of lisinopril Elevated liver function likely related to Remdesivir: Medication discontinued. Time Spent Managing Pts Care (In Minutes): 55
[2020-05-14] MEDS: MELATONIN 5 MG TABLET PO SCH (20:05)
[2020-05-15] MEDS: METHYLPREDNISOLONE 125 MG INJ IV SCH ×3 (00:09→17:28)
[2020-05-15] MEDS: ACETAMINOPHEN 500 MG TAB PO PRN ×2 (02:21→15:31)
[2020-05-15] MEDS: METOPROLOL TAR 25 MG TAB PO SCH ×2 (05:51→17:28)
[2020-05-15 05:59] LABS: Albumin 2.5 g/dL (3.4-5.0); Bilirubin Total 0.8 mg/dL (0.2-1.0); C-Reactive Protein 14.7 mg/L (<3.00); Ferritin 912.4 ng/mL (26-388); Potassium 4.9 mmol/L (3.5-5.1)
[2020-05-15] MEDS: VITAMIN D 1000 UNIT TAB PO SCH (07:41)
[2020-05-15] MEDS: APIXABAN 5 MG TABLET PO SCH ×2 (07:42→20:23)
[2020-05-15] MEDS: THIAMINE HCL 100 MG TABLET PO SCH ×2 (07:43→20:22)
[2020-05-15] MEDS: lisinopriL 10 MG TAB PO SCH (07:43)
[2020-05-15] MEDS: ASCORBIC ACID 500 MG TABLET PO SCH ×3 (07:43→20:22)
[2020-05-15] MEDS: ZINC SULFATE 220 MG CAP PO SCH (07:43)
[2020-05-15] MEDS: FUROSEMIDE 20 MG TABLET PO SCH (07:47)
--- NOTE | 2020-05-15 11:48 | RAD REPORT ---
EXAM DESCRIPTION: RAD - Chest Single View - 05/15/2020 6:23 am CLINICAL HISTORY: follow up COVID Chest pain. COMPARISON: Chest Single View dated 05/10/2020 FINDINGS: Portable technique limits examination quality. Extensive bilateral pulmonary opacities are again noted, mildly progressive since the comparative rhea dy. The heart is normal in size. No displaced fractures. IMPRESSION: Mild worsening in lung aeration seen since comparative study.
--- NOTE | 2020-05-15 13:12 | P.PN ---
Subjective Date of Service: 05/15/20 Primary Care Provider: Caity Luna NP Chief Complaint: Respiratory failure Subjective: Improving, Doing well Physical Examination - Vital Signs Temperature: 97.5 F Blood Pressure: 118/79 Pulse: 74 Respirations: 18 Pulse Ox (%): 92 - Studies Microbiology Data (last 24 hrs): 05/10/20 10:55 Blood - Blood Aerobic Blood Culture - Final No growth in 5 days. 05/10/20 10:55 Blood - Blood Anaerobic Blood Culture - Final No growth in 5 days. 05/10/20 10:55 Blood - Blood Aerobic Blood Culture - Final No growth in 5 days. 05/10/20 10:55 Blood - Blood Anaerobic Blood Culture - Final No growth in 5 days. Medications List Reviewed: Yes Assessment & Plan Discharge Plan: Home Plan to discharge in: 24 Hours Physician Review Additional Text: Initial Chief Complaint: Shortness of breath related to COVID Physical exam: Patient alert, cooperative. No significant distress noted. Heart: Regular rate Lungs: Patient currently on high-flow at 45 % Fi02. No significant respiratory distress noted. GI: No abdominal distention. Extremities: No edema to the lower extremity. Good range of motion to the upper and lower extremities without deficit. Impression: Dyspnea secondary to acute respiratory failure with hypoxia related to bilateral COVID 19 pneumonia Hypertension Elevated liver function likely related to Remdesivir Plan: Dyspnea secondary to acute respiratory failure with hypoxia related to bilateral COVID 19 pneumonia: Patient continues to improve. He is better today. Less oxygen requirement at 45% FiO2 on high-flow today. Respiratory to continue to wean down to nasal cannula. Remdesivir has been discontinued due to elevated liver function. Liver function tests improving. Continue IV Solu-Medrol, ivermectin, and supplementation. Continue Eliquis for DVT prophylaxis. Encourage incentive spirometer. Encourage proning. Encourage ambulation if possible. Once patient is able to get on 4 L or less of nasal cannula then will consider discharge. Will discuss case with pulmonology. Anticipate improvement over the next 48-72 hr. I will turn the service over to the hospitalist team tomorrow. I will go plan of care with him. Hypertension: Continue home medication of lisinopril Elevated liver function likely related to Remdesivir: Medication discontinued. Time Spent Managing Pts Care (In Minutes): 55
[2020-05-15] MEDS: MELATONIN 5 MG TABLET PO SCH (20:22)
[2020-05-15] MEDS: BENZONATATE 100 MG CAP PO PRN (22:26)
[2020-05-16] MEDS: METHYLPREDNISOLONE 125 MG INJ IV SCH ×3 (00:33→17:06)
[2020-05-16 04:47] LABS: ALT/SGPT 225 U/L (12-78); AST/SGOT 72 U/L (15-37); Albumin 2.5 g/dL (3.4-5.0); Alkaline Phosphatase 88 U/L (45-117); BUN Blood Urea Nitrogen 26 mg/dL (7-18); Bicarbonate 28 mmol/L (21-32); Bilirubin Total 0.8 mg/dL (0.2-1.0); Ferritin 1006.7 ng/mL (26-388); Glucose Level 150 mg/dL (74-106); Potassium 4.5 mmol/L (3.5-5.1); Protein, Total 6.2 g/dL (6.4-8.2); Sodium Level 136 mmol/L (136-145)
[2020-05-16] MEDS: METOPROLOL TAR 25 MG TAB PO SCH ×2 (06:00→18:13)
[2020-05-16] MEDS: VITAMIN D 1000 UNIT TAB PO SCH (07:19)
[2020-05-16] MEDS: APIXABAN 5 MG TABLET PO SCH ×2 (07:20→21:50)
[2020-05-16] MEDS: THIAMINE HCL 100 MG TABLET PO SCH ×2 (07:20→21:51)
[2020-05-16] MEDS: ASCORBIC ACID 500 MG TABLET PO SCH ×3 (07:20→21:50)
[2020-05-16] MEDS: ZINC SULFATE 220 MG CAP PO SCH (07:20)
[2020-05-16] MEDS: FUROSEMIDE 20 MG TABLET PO SCH (07:20)
[2020-05-16] MEDS: lisinopriL 10 MG TAB PO SCH (07:20)
[2020-05-16] MEDS: ACETAMINOPHEN 500 MG TAB PO PRN (18:00)
[2020-05-16] MEDS: MELATONIN 5 MG TABLET PO SCH (21:51)
[2020-05-17] MEDS: METHYLPREDNISOLONE 125 MG INJ IV SCH ×3 (00:25→17:20)
[2020-05-17 04:43] LABS: ALT/SGPT 191 U/L (12-78); AST/SGOT 52 U/L (15-37); Albumin 2.4 g/dL (3.4-5.0); Alkaline Phosphatase 94 U/L (45-117); BUN Blood Urea Nitrogen 27 mg/dL (7-18); Bicarbonate 31 mmol/L (21-32); Bilirubin Total 0.7 mg/dL (0.2-1.0); C-Reactive Protein 8.69 mg/L (<3.00); Glucose Level 147 mg/dL (74-106); Potassium 4.8 mmol/L (3.5-5.1); Sodium Level 136 mmol/L (136-145)
[2020-05-17] MEDS: METOPROLOL TAR 25 MG TAB PO SCH ×2 (06:28→17:20)
[2020-05-17] MEDS: FUROSEMIDE 20 MG TABLET PO SCH (09:32)
[2020-05-17] MEDS: lisinopriL 10 MG TAB PO SCH (09:32)
[2020-05-17] MEDS: VITAMIN D 1000 UNIT TAB PO SCH (09:32)
[2020-05-17] MEDS: THIAMINE HCL 100 MG TABLET PO SCH ×2 (09:33→20:49)
[2020-05-17] MEDS: ASCORBIC ACID 500 MG TABLET PO SCH ×3 (09:33→20:49)
[2020-05-17] MEDS: ZINC SULFATE 220 MG CAP PO SCH (09:33)
[2020-05-17] MEDS: APIXABAN 5 MG TABLET PO SCH ×2 (09:33→20:50)
[2020-05-17] MEDS: ACETAMINOPHEN 500 MG TAB PO PRN ×2 (17:57→22:36)
[2020-05-17] MEDS: MELATONIN 5 MG TABLET PO SCH (20:49)
[2020-05-17] MEDS: BENZONATATE 100 MG CAP PO PRN (22:36)
[2020-05-18] MEDS ORDERED: HYDROCODONE/CHLORPHEN 5 ML/OSYR PO ONE (00:52)
[2020-05-18] MEDS: METHYLPREDNISOLONE 125 MG INJ IV SCH ×3 (01:09→17:08)
[2020-05-18] MEDS: METOPROLOL TAR 25 MG TAB PO SCH ×2 (05:10→17:09)
[2020-05-18] MEDS: ASCORBIC ACID 500 MG TABLET PO SCH ×3 (10:19→21:58)
[2020-05-18] MEDS: VITAMIN D 1000 UNIT TAB PO SCH (10:19)
[2020-05-18] MEDS: THIAMINE HCL 100 MG TABLET PO SCH ×2 (10:19→21:58)
[2020-05-18] MEDS: lisinopriL 10 MG TAB PO SCH (10:20)
[2020-05-18] MEDS: FUROSEMIDE 20 MG TABLET PO SCH (10:20)
[2020-05-18] MEDS: ZINC SULFATE 220 MG CAP PO SCH (10:20)
[2020-05-18] MEDS: APIXABAN 5 MG TABLET PO SCH ×2 (10:21→21:58)
[2020-05-18] MEDS: BENZONATATE 100 MG CAP PO PRN (10:34)
[2020-05-18] MEDS: MELATONIN 5 MG TABLET PO SCH (21:58)
[2020-05-18] MEDS: TEMAZEPAM 15 MG CAP PO PRN (21:58)
[2020-05-18] MEDS: GUAIFENESIN/CODEINE 5ML UCUP PO PRN (21:59)
[2020-05-19] MEDS: METHYLPREDNISOLONE 125 MG INJ IV SCH ×3 (00:52→18:14)
[2020-05-19] MEDS: METOPROLOL TAR 25 MG TAB PO SCH ×2 (05:26→18:14)
[2020-05-19] MEDS: VITAMIN D 1000 UNIT TAB PO SCH (10:04)
[2020-05-19] MEDS: FUROSEMIDE 20 MG TABLET PO SCH (10:04)
[2020-05-19] MEDS: ZINC SULFATE 220 MG CAP PO SCH (10:04)
[2020-05-19] MEDS: ASCORBIC ACID 500 MG TABLET PO SCH ×3 (10:06→21:50)
[2020-05-19] MEDS: THIAMINE HCL 100 MG TABLET PO SCH ×2 (10:06→21:50)
[2020-05-19] MEDS: APIXABAN 5 MG TABLET PO SCH ×2 (10:06→21:50)
[2020-05-19] MEDS: lisinopriL 10 MG TAB PO SCH (10:06)
[2020-05-19] MEDS: BENZONATATE 100 MG CAP PO PRN (10:12)
[2020-05-19 10:47] LABS: Absolute Lymphocytes (CBC) 0.4 K/uL (0.7-4.9); Basophils % 0.2 % (0-1.3); Hematocrit 45.3 % (39.6-49.0); Lymphocytes % 2.8 % (15.3-44.8); MPV 7.8 fL (7.6-11.3); RBC Red Blood Cell Count 5.23 M/uL (4.33-5.43)
[2020-05-19 11:12] LABS: BUN Blood Urea Nitrogen 23 mg/dL (7-18); Bicarbonate 30 mmol/L (21-32); Ferritin 1183.2 ng/mL (26-388); Glucose Level 140 mg/dL (74-106); Magnesium 2.5 mg/dL (1.8-2.4); NT PRO-BNP 88 pg/mL (<125); Phosphorus 3.4 mg/dL (2.5-4.9); Potassium 4.8 mmol/L (3.5-5.1); Sodium Level 133 mmol/L (136-145)
[2020-05-19 11:52] LABS: Blood Morphology Comment NOT SEEN (NOT SEEN); Platelet Estimate ADEQ
--- NOTE | 2020-05-19 17:12 | P.PN ---
Subjective Date of Service: 05/16/20 Subjective: No new changes, No C/O voiced, Improving Review of Systems 10-point ROS is otherwise unremarkable Physical Examination - Vital Signs Temperature: 97.1 F Blood Pressure: 106/69 Pulse: 102 Respirations: 16 Pulse Ox (%): 92 - Physical Exam General: Alert, In no apparent distress, Oriented x3 Respiratory: Diminished, Rhonchi/gurgles Cardiovascular: Regular rate/rhythm, Normal S1 S2, No murmurs Gastrointestinal: Normal bowel sounds, Soft and benign, Non-distended, No tenderness Musculoskeletal: No clubbing, No swelling, No tenderness Neurological: Sensation intact, Cranial nerves 3-12 intact Lymphatics: No axilla or inguinal lymphadenopathy - Studies Medications List Reviewed: Yes Assessment & Plan - Problems (Diagnosis) (1) Pneumonia due to COVID-19 virus Current Visit: Yes Status: Acute (2) Hypoxemia Current Visit: Yes Status: Acute (3) Acute respiratory failure due to severe acute respiratory syndrome coronavirus 2 (SARS-CoV-2) infection Current Visit: Yes Status: Acute - Plan 1. Continue with IV steroids 2. Patient given Ivermectin 3. Repeat chest x-ray if symptoms are progressively worsening 4. O2 per protocol 5. Pulmonary is been consulted 6. Repeat inflammatory markers Repeat labs including D-dimer, ferritin, and CRP and LFTs 7. GI and DVT prophylaxis Discharge Plan: Home Plan to discharge in: Greater than 2 days - Advance Directives Does patient have a Living Will: No Does patient have a Durable POA for Healthcare: No - Code Status/Comfort Care Code Status Assessed: Yes Code Status: Full Code Critical Care: No Time Spent Managing PTS Care (In Minutes): 35
--- NOTE | 2020-05-19 17:18 | P.PN ---
Date of Service: 05/17/20 Subjective Subjective: Patient still on high-flow. He does not like the way the nasal cannula makes him feel. He wants to use a mask. Will put 100% non-rebreather and see if he tolerates Review of Systems 10-point ROS is otherwise unremarkable Physical Examination - Vital Signs Reviewed - Physical Exam General: Alert, In no apparent distress, Oriented x3 Respiratory: Diminished, Rhonchi/gurgles Cardiovascular: Regular rate/rhythm, Normal S1 S2, No murmurs Gastrointestinal: Normal bowel sounds, Soft and benign, Non-distended, No tenderness Musculoskeletal: No clubbing, No swelling, No tenderness Neurological: Sensation intact, Cranial nerves 3-12 intact Lymphatics: No axilla or inguinal lymphadenopathy Assessment & Plan - Problems (Diagnosis) (1) Pneumonia due to COVID-19 virus Current Visit: Yes Status: Acute (2) Hypoxemia Current Visit: Yes Status: Acute (3) Acute respiratory failure due to severe acute respiratory syndrome coronavirus 2 (SARS-CoV-2) infection Current Visit: Yes Status: Acute - Plan Continue with plan of care as mentioned below 1. Continue with IV steroids 2. Patient given Ivermectin 3. Repeat chest x-ray if symptoms are progressively worsening 4. O2 per protocol 5. Pulmonary is been consulted 6. Repeat inflammatory markers Repeat labs including D-dimer, ferritin, and CRP and LFTs 7. GI and DVT prophylaxis
--- NOTE | 2020-05-19 17:31 | P.PN ---
Date of Service: 05/18/20 Subjective Subjective: Patient is on 100% non-rebreather and his oxygen saturations are in the low 90s. He is talking in full sentences. He is getting out of bed and ambulating. Clinically he feels like he is doing well. Review of Systems 10-point ROS is otherwise unremarkable Physical Examination - Vital Signs Reviewed - Physical Exam General: Alert, In no apparent distress, Oriented x3 Respiratory: Diminished, Rhonchi/gurgles Cardiovascular: Regular rate/rhythm, Normal S1 S2, No murmurs Gastrointestinal: Normal bowel sounds, Soft and benign, Non-distended, No tenderness Musculoskeletal: No clubbing, No swelling, No tenderness Assessment & Plan - Problems (Diagnosis) (1) Pneumonia due to COVID-19 virus Current Visit: Yes Status: Acute (2) Hypoxemia Current Visit: Yes Status: Acute (3) Acute respiratory failure due to severe acute respiratory syndrome montgomery virus 2 (SARS-CoV-2) infection Current Visit: Yes Status: Acute - Plan Continue with plan of care as mentioned below: 1. Continue with IV steroids 2. Patient given Ivermectin 3. Repeat chest x-ray if symptoms are progressively worsening 4. O2 per protocol 5. Pulmonary has been consulted 6. Monitor labs including D-dimer, ferritin, and CRP and LFTs 7. GI and DVT prophylaxis
--- NOTE | 2020-05-19 19:39 | RAD REPORT ---
EXAM DESCRIPTION: US - Extrem Venous W [facility]ress [place] - 05/19/2020 7:30 pm CLINICAL HISTORY: D-dimer elevated(00351); COVID pneumonia; COMPARISON: None. TECHNIQUE: Real-time sonographic evaluation of the bilateral lower extremity common femoral, superfi cial femoral, popliteal and posterior tibial veins was performed. FINDINGS: Normal compressibility, flow augmentation, phasic flow and spontaneous flow are identified in the left and right lower extremity common femoral, superficial femoral, popliteal and posterior t ibial veins. No intraluminal filling defects seen. IMPRESSION: No DVT in either lower extremity.
[2020-05-19] MEDS: MELATONIN 5 MG TABLET PO SCH (21:50)
[2020-05-19] MEDS: TEMAZEPAM 15 MG CAP PO PRN (21:50)
[2020-05-19] MEDS: GUAIFENESIN/CODEINE 5ML UCUP PO PRN (21:51)
[2020-05-20] MEDS: METHYLPREDNISOLONE 125 MG INJ IV SCH ×4 (00:23→20:36)
[2020-05-20] MEDS: METOPROLOL TAR 25 MG TAB PO SCH ×2 (05:09→17:00)
[2020-05-20] MEDS: VITAMIN D 1000 UNIT TAB PO SCH (08:14)
[2020-05-20] MEDS: lisinopriL 10 MG TAB PO SCH (08:14)
[2020-05-20] MEDS: APIXABAN 5 MG TABLET PO SCH ×2 (08:15→20:36)
[2020-05-20] MEDS: ASCORBIC ACID 500 MG TABLET PO SCH ×3 (08:15→20:35)
[2020-05-20] MEDS: FUROSEMIDE 20 MG TABLET PO SCH (08:15)
[2020-05-20] MEDS: THIAMINE HCL 100 MG TABLET PO SCH ×2 (08:15→20:35)
[2020-05-20] MEDS: ZINC SULFATE 220 MG CAP PO SCH (08:15)
[2020-05-20] MEDS: BENZONATATE 100 MG CAP PO PRN ×2 (08:20→20:36)
[2020-05-20] MEDS: ACETAMINOPHEN 500 MG TAB PO PRN (16:07)
--- NOTE | 2020-05-20 16:24 | P.PN ---
Subjective Date of Service: 05/20/20 Primary Care Provider: Caity Luna NP Chief Complaint: Respiratory failure Subjective: Improving (Patient is improving currently on nasal cannula oxygen sats still borderline low) Review of Systems General: Weakness Respiratory: Shortness of Breath Physical Examination - Vital Signs Temperature: 99 F Blood Pressure: 110/69 Pulse: 68 Respirations: 20 Pulse Ox (%): 88 - Studies Medications List Reviewed: Yes Assessment & Plan - Problems (Diagnosis) (1) Acute respiratory failure due to severe acute respiratory syndrome coronavirus 2 (SARS-CoV-2) infection Current Visit: Yes Status: Acute Plan: Respiratory failure patient is improving he is currently on nasal cannula oxygen saturation is borderline on 6 L chemistries reviewed reduce dose of Solu-Medrol continue to titrate sat down
[2020-05-20] MEDS: MELATONIN 5 MG TABLET PO SCH (20:35)
[2020-05-20] MEDS: GUAIFENESIN/CODEINE 5ML UCUP PO PRN (20:36)
[2020-05-20] MEDS: TEMAZEPAM 15 MG CAP PO PRN (20:36)
[2020-05-21] MEDS: METOPROLOL TAR 25 MG TAB PO SCH ×2 (05:58→17:38)
[2020-05-21] MEDS: FUROSEMIDE 20 MG TABLET PO SCH (09:14)
[2020-05-21] MEDS: VITAMIN D 1000 UNIT TAB PO SCH (09:14)
[2020-05-21] MEDS: ASCORBIC ACID 500 MG TABLET PO SCH ×3 (09:15→20:55)
[2020-05-21] MEDS: APIXABAN 5 MG TABLET PO SCH ×2 (09:15→20:55)
[2020-05-21] MEDS: GUAIFENESIN/CODEINE 5ML UCUP PO PRN ×2 (09:15→20:56)
[2020-05-21] MEDS: ZINC SULFATE 220 MG CAP PO SCH (09:15)
[2020-05-21] MEDS: METHYLPREDNISOLONE 125 MG INJ IV SCH ×2 (09:15→20:56)
[2020-05-21] MEDS: THIAMINE HCL 100 MG TABLET PO SCH ×2 (09:15→20:55)
[2020-05-21] MEDS: lisinopriL 10 MG TAB PO SCH (09:15)
--- NOTE | 2020-05-21 09:59 | P.PN ---
Date of Service: 05/19/20 Subjective Subjective: Continue weaning oxygen. Will be more aggressive w/ weaning down oxygenation. Will try vent mask today. Will start him on 50% and if he tolerates this will discontinue non-rebreather. Review of Systems 10-point ROS is otherwise unremarkable Physical Examination - Vital Signs Reviewed - Physical Exam General: Alert, In no apparent distress, Oriented x3 Respiratory: Diminished, Rhonchi/gurgles Cardiovascular: Regular rate/rhythm, Normal S1 S2, No murmurs Gastrointestinal: Normal bowel sounds, Soft and benign, Non-distended, No tenderness Musculoskeletal: No clubbing, No swelling, No tenderness Assessment & Plan - Problems (Diagnosis) (1) Pneumonia due to COVID-19 virus Current Visit: Yes Status: Acute (2) Hypoxemia Current Visit: Yes Status: Acute (3) Acute respiratory failure due to severe acute respiratory syndrome coronavirus 2 (SARS-CoV-2) infection Current Visit: Yes Status: Acute - Plan Continue with plan of care as mentioned below: 1. Continue with IV steroids 2. Patient given Ivermectin 3. Repeat chest x-ray if symptoms are progressively worsening 4. O2 per protocol-start meds at and continue weaning down oxygen; will start patient on Venti mask 5. Continue Pulmonary follow-up 6. Monitor inflammatory markers 7. GI and DVT prophylaxis
--- NOTE | 2020-05-21 10:00 | P.PN ---
Date of Service: 05/20/20 Subjective Subjective: Patient continues to do well with no new complaints. Review of Systems 10-point ROS is otherwise unremarkable Physical Examination - Vital Signs Reviewed - Physical Exam General: Alert, In no apparent distress, Oriented x3 Respiratory: Diminished, minimal rhonchi basilar Cardiovascular: Regular rate/rhythm, Normal S1 S2, No murmurs Gastrointestinal: Normal bowel sounds, Soft and benign, Non-distended, No tenderness Musculoskeletal: No clubbing, No swelling, No tenderness Assessment & Plan - Problems (Diagnosis) (1) Pneumonia due to COVID-19 virus Current Visit: Yes Status: Acute (2) Hypoxemia Current Visit: Yes Status: Acute (3) Acute respiratory failure due to severe acute respiratory syndrome coronavirus 2 (SARS-CoV-2) infection Current Visit: Yes Status: Acute - Plan Continue with plan of care as mentioned below: 1. Continue with IV steroids; will wean down oxygen 2. S/p Ivermectin 3. Repeat chest x-ray if symptoms are progressively worsening 4. Wean FiO2 5. Continue Pulmonary follow-up 6. Monitor inflammatory markers 7. GI and DVT prophylaxis
--- NOTE | 2020-05-21 10:08 | P.PN ---
Date of Service: 05/21/20 Subjective Subjective: Feeling better with no new complaints. Patient continues to improve. Review of Systems 10-point ROS is otherwise unremarkable Physical Examination - Vital Signs Reviewed - Physical Exam General: Alert, In no apparent distress, Oriented x3 Respiratory: Diminished, minimal rhonchi basilar Cardiovascular: Regular rate/rhythm, Normal S1 S2, No murmurs Gastrointestinal: Normal bowel sounds, Soft and benign, Non-distended, No tenderness Musculoskeletal: No clubbing, No swelling, No tenderness Assessment & Plan - Problems (Diagnosis) (1) Pneumonia due to COVID-19 virus Current Visit: Yes Status: Acute (2) Hypoxemia Current Visit: Yes Status: Acute (3) Acute respiratory failure due to severe acute respiratory syndrome coronavirus 2 (SARS-CoV-2) infection Current Visit: Yes Status: Acute - Plan Continue with plan of care as mentioned below: 1. Continue with IV steroids-will probably need to go ahead and start weaning him down; will wean down oxygen as well 2. S/p Ivermectin 3. Repeat chest x-ray if symptoms are progressively worsening 4. Wean FiO2 5. Continue Pulmonary follow-up 6. Monitor inflammatory markers 7. GI and DVT prophylaxis
[2020-05-21] MEDS: TEMAZEPAM 15 MG CAP PO PRN (20:55)
[2020-05-21] MEDS: MELATONIN 5 MG TABLET PO SCH (20:56)
[2020-05-21] MEDS: ACETAMINOPHEN 500 MG TAB PO PRN (20:56)
[2020-05-21] MEDS: BENZONATATE 100 MG CAP PO PRN (20:57)
[2020-05-22] MEDS: BENZONATATE 100 MG CAP PO PRN ×2 (04:30→16:09)
[2020-05-22] MEDS: METOPROLOL TAR 25 MG TAB PO SCH ×2 (06:06→17:12)
[2020-05-22 06:52] LABS: Absolute Lymphocytes (CBC) 0.4 K/uL (0.7-4.9); Basophils % 0.1 % (0-1.3); Hematocrit 40.9 % (39.6-49.0); Lymphocytes % 3.3 % (15.3-44.8); MPV 8.1 fL (7.6-11.3); RBC Red Blood Cell Count 4.71 M/uL (4.33-5.43)
[2020-05-22 06:56] LABS: BUN Blood Urea Nitrogen 23 mg/dL (7-18); Bicarbonate 31 mmol/L (21-32); C-Reactive Protein 6.22 mg/L (<3.00); Ferritin 1125.4 ng/mL (26-388); Glucose Level 132 mg/dL (74-106); Magnesium 2.5 mg/dL (1.8-2.4); NT PRO-BNP 81 pg/mL (<125); Phosphorus 4.4 mg/dL (2.5-4.9); Potassium 4.8 mmol/L (3.5-5.1); Sodium Level 135 mmol/L (136-145)
[2020-05-22] MEDS: ASCORBIC ACID 500 MG TABLET PO SCH ×3 (07:52→20:39)
[2020-05-22] MEDS: FUROSEMIDE 20 MG TABLET PO SCH (07:52)
[2020-05-22] MEDS: lisinopriL 10 MG TAB PO SCH (07:52)
[2020-05-22] MEDS: VITAMIN D 1000 UNIT TAB PO SCH (07:52)
[2020-05-22] MEDS: APIXABAN 5 MG TABLET PO SCH ×2 (07:52→20:39)
[2020-05-22] MEDS: ZINC SULFATE 220 MG CAP PO SCH (07:53)
[2020-05-22] MEDS: THIAMINE HCL 100 MG TABLET PO SCH ×2 (07:53→20:39)
[2020-05-22] MEDS: METHYLPREDNISOLONE 125 MG INJ IV SCH ×2 (07:54→20:39)
--- NOTE | 2020-05-22 11:41 | P.PN ---
Subjective Date of Service: 05/22/20 Primary Care Provider: Caity Luna NP Chief Complaint: Respiratory failure Subjective: Improving (Patient is improving oxygen requirements are declining) Review of Systems Respiratory: Shortness of Breath Physical Examination - Vital Signs Temperature: 97.2 F Blood Pressure: 124/77 Pulse: 102 Respirations: 20 Pulse Ox (%): 94 - Studies Medications List Reviewed: Yes Assessment & Plan - Problems (Diagnosis) (1) Acute respiratory failure due to severe acute respiratory syndrome coronavirus 2 (SARS-CoV-2) infection Current Visit: Yes Status: Acute Plan: Respiratory failure patient is improving continue to decrease oxygen evaluate for possible discharge continue with current medications Physician Review Additional Text: Initial Chief Complaint: Shortness of breath related to COVID Physical exam: Patient alert, cooperative. No significant distress noted. Heart: Regular rate Lungs: Patient currently on high-flow at 45 % Fi02. No significant respiratory distress noted. GI: No abdominal distention. Extremities: No edema to the lower extremity. Good range of motion to the upper and lower extremities without deficit. Impression: Dyspnea secondary to acute respiratory failure with hypoxia related to bilateral COVID 19 pneumonia Hypertension Elevated liver function likely related to Remdesivir Plan: Dyspnea secondary to acute respiratory failure with hypoxia related to bilateral COVID 19 pneumonia: Patient continues to improve. He is better today. Less oxygen requirement at 45% FiO2 on high-flow today. Respiratory to continue to wean down to nasal cannula. Remdesivir has been discontinued due to elevated liver function. Liver function tests improving. Continue IV Solu-Medrol, i vermectin, and supplementation. Continue Eliquis for DVT prophylaxis. Encourage incentive spirometer. Encourage proning. Encourage ambulation if possible. Once patient is able to get on 4 L or less of nasal cannula then will consider discharge. Will discuss case with pulmonology. Anticipate improvement over the next 48-72 hr. I will turn the service over to the hospitalist team tomorrow. I will go plan of care with him. Hypertension: Continue home medication of lisinopril Elevated liver function likely related to Remdesivir: Medication discontinued.
[2020-05-22] MEDS: GUAIFENESIN/CODEINE 5ML UCUP PO PRN (16:09)
[2020-05-22] MEDS: MELATONIN 5 MG TABLET PO SCH (20:39)
[2020-05-22] MEDS: TEMAZEPAM 15 MG CAP PO PRN (20:39)
[2020-05-23] MEDS: BENZONATATE 100 MG CAP PO PRN ×2 (00:20→15:43)
--- NOTE | 2020-05-23 02:20 | P.PN ---
Date of Service: 05/22/20 Subjective Subjective: Patient doing well no new complaints. Continue on 40% venti mask and weaned down to 35% FiO2. check room-air O2 sats at rest and Arrange for oxygen in preparation to discharge home over the next 24-48 hours Review of Systems 10-point ROS is otherwise unremarkable Physical Examination - Vital Signs Reviewed - Physical Exam General: Alert, In no apparent distress, Oriented x3 Respiratory: Diminished, minimal rhonchi basilar Cardiovascular: Regular rate/rhythm, Normal S1 S2, No murmurs Gastrointestinal: Normal bowel sounds, Soft and benign, Non-distended, No tenderness Musculoskeletal: No clubbing, No swelling, No tenderness Assessment & Plan - Problems (Diagnosis) (1) Pneumonia due to COVID-19 virus Current Visit: Yes Status: Acute (2) Hypoxemia Current Visit: Yes Status: Acute (3) Acute respiratory failure due to severe acute respiratory syndrome coronavirus 2 (SARS-CoV-2) infection Current Visit: Yes Status: Acute - Plan Continue with plan of care as mentioned below: 1. Continue with IV steroids-start weaning him down; will wean down oxygen as well; Arrange for home oxygen 2. S/p Ivermectin 3. Repeat chest x-ray if symptoms are progressively worsening 4. Wean FiO2 5. Continue Pulmonary follow-up 6. Monitor inflammatory markers 7. GI and DVT prophylaxis
[2020-05-23 04:20] LABS: Absolute Lymphocytes (CBC) 0.4 K/uL (0.7-4.9); Basophils % 0.4 % (0-1.3); Hematocrit 43.9 % (39.6-49.0); Lymphocytes % 2.4 % (15.3-44.8); RBC Red Blood Cell Count 5.03 M/uL (4.33-5.43)
[2020-05-23 04:37] LABS: BUN Blood Urea Nitrogen 23 mg/dL (7-18); Bicarbonate 32 mmol/L (21-32); Ferritin 1090.6 ng/mL (26-388); Glucose Level 168 mg/dL (74-106); Potassium 4.8 mmol/L (3.5-5.1); Sodium Level 137 mmol/L (136-145)
[2020-05-23 04:41] LABS: C-Reactive Protein < 2.90 mg/L (<3.00)
[2020-05-23 04:54] LABS: Blood Morphology Comment NOT SEEN (NOT SEEN); Platelet Estimate ADEQ
[2020-05-23] MEDS: GUAIFENESIN/CODEINE 5ML UCUP PO PRN ×2 (05:35→21:20)
[2020-05-23] MEDS: METOPROLOL TAR 25 MG TAB PO SCH ×2 (05:36→17:30)
[2020-05-23] MEDS: FUROSEMIDE 20 MG TABLET PO SCH (07:09)
[2020-05-23] MEDS: ZINC SULFATE 220 MG CAP PO SCH (07:09)
[2020-05-23] MEDS: THIAMINE HCL 100 MG TABLET PO SCH ×2 (07:10→21:19)
[2020-05-23] MEDS: ASCORBIC ACID 500 MG TABLET PO SCH ×3 (07:11→21:20)
[2020-05-23] MEDS: APIXABAN 5 MG TABLET PO SCH ×2 (07:12→21:20)
[2020-05-23] MEDS: METHYLPREDNISOLONE 125 MG INJ IV SCH ×2 (07:12→21:20)
[2020-05-23] MEDS: VITAMIN D 1000 UNIT TAB PO SCH (07:12)
[2020-05-23] MEDS: lisinopriL 10 MG TAB PO SCH (08:57)
--- NOTE | 2020-05-23 11:18 | P.PN ---
Subjective Date of Service: 05/23/20 Primary Care Provider: Caity Luna NP Chief Complaint: Respiratory failure Subjective: Improving Physical Examination - Vital Signs Temperature: 97.1 F Blood Pressure: 117/75 Pulse: 107 Respirations: 18 Pulse Ox (%): 90 - Studies Medications List Reviewed: Yes Assessment & Plan Discharge Plan: Home Plan to discharge in: 48 Hours Physician Review Additional Text: Initial Chief Complaint: Shortness of breath related to COVID Physical exam: Patient alert, cooperative. No significant distress noted. Heart: Regular rate Lungs: Patient currently on Venti mask at 40%. No significant respiratory distress noted. GI: No abdominal distention. Extremities: No edema to the lower extremity. Good range of motion to the upper and lower extremities without deficit. Impression: Dyspnea secondary to acute respiratory failure with hypoxia related to bilateral COVID 19 pneumonia Hypertension Elevated liver function likely related to Remdesivir Plan: Dyspnea secondary to acute respiratory failure with hypoxia related to bilateral COVID 19 pneumonia: Patient continues to slowly improved. Patient currently on Venti mask at 40%. Hopefully respiratory will be able to transition to nasal cannula. Continue current IV Solu-Medrol and supplementation. Continue Eliquis for DVT prophylaxis. Encourage incentive spirometer. Encourage proning. Encourage ambulation if possible. Anticipate improvement over the next 48-72 hr. Hypertension: Continue home medication of lisinopril and metoprolol Elevated liver function likely related to Remdesivir: Medication discontinued. Will recheck lab tomorrow. Time Spent Managing Pts Care (In Minutes): 55
[2020-05-23] MEDS: TEMAZEPAM 15 MG CAP PO PRN (21:19)
[2020-05-23] MEDS: MELATONIN 5 MG TABLET PO SCH (21:19)
[2020-05-24 04:12] LABS: Absolute Lymphocytes (CBC) 0.5 K/uL (0.7-4.9); Basophils % 0.2 % (0-1.3); Hematocrit 44.6 % (39.6-49.0); Lymphocytes % 3.4 % (15.3-44.8); MPV 8.1 fL (7.6-11.3); RBC Red Blood Cell Count 5.07 M/uL (4.33-5.43)
[2020-05-24 04:37] LABS: ALT/SGPT 234 U/L (12-78); AST/SGOT 39 U/L (15-37); Albumin 2.6 g/dL (3.4-5.0); Alkaline Phosphatase 77 U/L (45-117); BUN Blood Urea Nitrogen 19 mg/dL (7-18); Bicarbonate 30 mmol/L (21-32); Bilirubin Total 0.7 mg/dL (0.2-1.0); Ferritin 1080.3 ng/mL (26-388); Glucose Level 172 mg/dL (74-106); Sodium Level 135 mmol/L (136-145)
[2020-05-24 04:44] LABS: C-Reactive Protein < 2.90 mg/L (<3.00)
[2020-05-24] MEDS: METOPROLOL TAR 25 MG TAB PO SCH ×2 (06:12→17:41)
[2020-05-24] MEDS: BENZONATATE 100 MG CAP PO PRN ×2 (06:12→13:35)
[2020-05-24] MEDS: ASCORBIC ACID 500 MG TABLET PO SCH ×3 (08:17→21:36)
[2020-05-24] MEDS: VITAMIN D 1000 UNIT TAB PO SCH (08:17)
[2020-05-24] MEDS: APIXABAN 5 MG TABLET PO SCH ×2 (08:17→21:35)
[2020-05-24] MEDS: ZINC SULFATE 220 MG CAP PO SCH (08:17)
[2020-05-24] MEDS: lisinopriL 10 MG TAB PO SCH (08:18)
[2020-05-24] MEDS: FUROSEMIDE 20 MG TABLET PO SCH (08:19)
[2020-05-24] MEDS: METHYLPREDNISOLONE 125 MG INJ IV SCH ×2 (08:19→21:35)
[2020-05-24] MEDS: THIAMINE HCL 100 MG TABLET PO SCH ×2 (08:19→21:35)
--- NOTE | 2020-05-24 16:15 | P.PN ---
Subjective Date of Service: 05/24/20 Primary Care Provider: Caity Luna NP Chief Complaint: Respiratory failure Subjective: Other (Patient remained stable on Venti mask.) Physical Examination - Vital Signs Temperature: 96.9 F Blood Pressure: 119/76 Pulse: 95 Respirations: 20 Pulse Ox (%): 95 - Studies Medications List Reviewed: Yes Assessment & Plan Discharge Plan: Home Plan to discharge in: 48 Hours Physician Review Additional Text: Initial Chief Complaint: Shortness of breath related to COVID Physical exam: Patient alert, cooperative. No significant distress noted. Heart: Regular rate Lungs: Patient currently on Venti mask at 40%. No significant respiratory distress noted. GI: No abdominal distention. Extremities: No edema to the lower extremity. Good range of motion to the upper and lower extremities without deficit. Impression: Dyspnea secondary to acute respiratory failure with hypoxia related to bilateral COVID 19 pneumonia Hypertension Elevated liver function likely related to Remdesivir Plan: Dyspnea secondary to acute respiratory failure with hypoxia related to bilateral COVID 19 pneumonia: Patient continues to slowly improved. Patient currently on Venti mask at 40%. Hopefully respiratory will be able to transition to nasal cannula. Continue current IV Solu-Medrol and supplementation. Continue Eliquis for DVT prophylaxis. Encourage incentive spirometer. Encourage proning. Encourage ambulation if possible. Anticipate improvement over the next 48-72 hr. Hypertension: Continue home medication of lisinopril and metoprolol Elevated liver function likely related to Remdesivir: Medication discontinued. Time Spent Managing Pts Care (In Minutes): 55
[2020-05-24] MEDS: GUAIFENESIN/CODEINE 5ML UCUP PO PRN (21:35)
[2020-05-24] MEDS: MELATONIN 5 MG TABLET PO SCH (21:36)
[2020-05-25 04:02] LABS: Absolute Lymphocytes (CBC) 0.7 K/uL (0.7-4.9); Basophils % 0.1 % (0-1.3); Hematocrit 42.5 % (39.6-49.0); Lymphocytes % 3.8 % (15.3-44.8); MPV 7.8 fL (7.6-11.3); RBC Red Blood Cell Count 4.88 M/uL (4.33-5.43)
[2020-05-25 04:21] LABS: ALT/SGPT 256 U/L (12-78); AST/SGOT 41 U/L (15-37); Albumin 2.6 g/dL (3.4-5.0); Alkaline Phosphatase 72 U/L (45-117); BUN Blood Urea Nitrogen 25 mg/dL (7-18); Bicarbonate 31 mmol/L (21-32); Bilirubin Total 0.7 mg/dL (0.2-1.0); Glucose Level 168 mg/dL (74-106); Potassium 4.7 mmol/L (3.5-5.1); Protein, Total 5.8 g/dL (6.4-8.2); Sodium Level 133 mmol/L (136-145)
[2020-05-25 04:22] LABS: C-Reactive Protein < 2.90 mg/L (<3.00)
[2020-05-25] MEDS: METOPROLOL TAR 25 MG TAB PO SCH ×2 (06:06→18:14)
[2020-05-25] MEDS: BENZONATATE 100 MG CAP PO PRN ×2 (06:06→20:12)
[2020-05-25] MEDS: lisinopriL 10 MG TAB PO SCH (09:01)
[2020-05-25] MEDS: ASCORBIC ACID 500 MG TABLET PO SCH ×3 (09:01→20:14)
[2020-05-25] MEDS: FUROSEMIDE 20 MG TABLET PO SCH (09:01)
[2020-05-25] MEDS: METHYLPREDNISOLONE 125 MG INJ IV SCH ×2 (09:01→20:14)
[2020-05-25] MEDS: THIAMINE HCL 100 MG TABLET PO SCH ×2 (09:01→20:14)
[2020-05-25] MEDS: VITAMIN D 1000 UNIT TAB PO SCH (09:01)
[2020-05-25] MEDS: ZINC SULFATE 220 MG CAP PO SCH (09:01)
[2020-05-25] MEDS: APIXABAN 2.5 MG TABLET PO SCH ×2 (09:05→20:12)
--- NOTE | 2020-05-25 14:49 | P.PN ---
Subjective Date of Service: 05/25/20 Primary Care Provider: Caity Luna NP Chief Complaint: Respiratory failure Subjective: Doing well Physical Examination - Vital Signs Temperature: 97.0 F Blood Pressure: 112/76 Pulse: 65 Respirations: 16 Pulse Ox (%): 90 - Studies Medications List Reviewed: Yes Assessment & Plan Discharge Plan: Home Plan to discharge in: 72 Hours Physician Review Additional Text: Initial Chief Complaint: Shortness of breath related to COVID Physical exam: Patient alert, cooperative. No significant distress noted. Heart: Regular rate Lungs: Patient currently on Venti mask at 40%. No significant respiratory distress noted. GI: No abdominal distention. Extremities: No edema to the lower extremity. Good range of motion to the upper and lower extremities without deficit. Impression: Dyspnea secondary to acute respiratory failure with hypoxia related to bilateral COVID 19 pneumonia Hypertension Elevated liver function likely related to Remdesivir Plan: Dyspnea secondary to acute respiratory failure with hypoxia related to bilateral COVID 19 pneumonia: Patient continues to slowly improved. Patient currently on Venti mask at 40%. Hopefully respiratory will be able to transition to nasal cannula. Continue current IV Solu-Medrol and supplementation. Continue Eliquis for DVT prophylaxis. Encourage incentive spirometer. Encourage proning. Encourage ambulation if possible. Anticipate improvement over the next 48-72 hr. Hypertension: Continue home medication of lisinopril and metoprolol Elevated liver function likely related to Remdesivir: Medication discontinued. Time Spent Managing Pts Care (In Minutes): 55
[2020-05-25] MEDS ORDERED: POTASSIUM CL SA 10 MEQ TAB PO ONE (18:45)
[2020-05-25] MEDS: MELATONIN 5 MG TABLET PO SCH (20:14)
[2020-05-25] MEDS: GUAIFENESIN/CODEINE 5ML UCUP PO PRN (21:34)
[2020-05-26] MEDS: METOPROLOL TAR 25 MG TAB PO SCH ×2 (05:48→17:53)
[2020-05-26] MEDS: lisinopriL 10 MG TAB PO SCH (09:00)
[2020-05-26] MEDS: VITAMIN D 1000 UNIT TAB PO SCH (09:35)
[2020-05-26] MEDS: APIXABAN 2.5 MG TABLET PO SCH ×2 (09:35→20:54)
[2020-05-26] MEDS: ASCORBIC ACID 500 MG TABLET PO SCH ×3 (09:36→20:54)
[2020-05-26] MEDS: THIAMINE HCL 100 MG TABLET PO SCH ×2 (09:36→20:54)
[2020-05-26] MEDS: FUROSEMIDE 20 MG TABLET PO SCH (09:36)
[2020-05-26] MEDS: ZINC SULFATE 220 MG CAP PO SCH (09:36)
[2020-05-26] MEDS: METHYLPREDNISOLONE 125 MG INJ IV SCH ×2 (09:36→20:55)
--- NOTE | 2020-05-26 17:16 | P.PN ---
Subjective Date of Service: 05/26/20 Primary Care Provider: Caity Luna NP Chief Complaint: Respiratory failure Subjective: Improving Physical Examination - Vital Signs Temperature: 96.8 F Blood Pressure: 121/76 Pulse: 97 Respirations: 18 Pulse Ox (%): 93 - Studies Medications List Reviewed: Yes Assessment & Plan Discharge Plan: Home Plan to discharge in: 48 Hours Physician Review Additional Text: Initial Chief Complaint: Shortness of breath related to COVID Physical exam: Patient alert, cooperative. No significant distress noted. Heart: Regular rate Lungs: Patient currently on high-flow. No significant respiratory distress noted. GI: No abdominal distention. Extremities: No edema to the lower extremity. Good range of motion to the upper and lower extremities without deficit. Impression: Dyspnea secondary to acute respiratory failure with hypoxia related to bilateral COVID 19 pneumonia Hypertension Elevated liver function likely related to Remdesivir Plan: Dyspnea secondary to acute respiratory failure with hypoxia related to bilateral COVID 19 pneumonia: Patient continues to slowly improved. Patient currently on high-flow oxygen. Less requirement noted today. Hopefully respiratory will be able to transition to nasal cannula. Continue current IV Solu-Medrol and supplementation. Continue Eliquis for DVT prophylaxis. Encourage incentive spirometer. Encourage proning. Encourage ambulation if possible. Anticipate improvement over the next 48-72 hr. Hypertension: Continue home medication of lisinopril and metoprolol Elevated liver function likely related to Remdesivir: Medication discontinued. Time Spent Managing Pts Care (In Minutes): 55
[2020-05-26] MEDS: MELATONIN 5 MG TABLET PO SCH (20:54)
[2020-05-26] MEDS: GUAIFENESIN/CODEINE 5ML UCUP PO PRN (22:39)
[2020-05-27] MEDS: METOPROLOL TAR 25 MG TAB PO SCH ×4 (06:00→18:00)
[2020-05-27] MEDS: APIXABAN 2.5 MG TABLET PO SCH (09:00)
[2020-05-27] MEDS: VITAMIN D 1000 UNIT TAB PO SCH (09:48)
[2020-05-27] MEDS: lisinopriL 10 MG TAB PO SCH (09:48)
[2020-05-27] MEDS: APIXABAN 5 MG TABLET PO SCH ×2 (09:48→21:06)
[2020-05-27] MEDS: ASCORBIC ACID 500 MG TABLET PO SCH ×3 (09:48→21:06)
[2020-05-27] MEDS: ZINC SULFATE 220 MG CAP PO SCH (09:49)
[2020-05-27] MEDS: METHYLPREDNISOLONE 125 MG INJ IV SCH ×2 (09:49→21:06)
[2020-05-27] MEDS: THIAMINE HCL 100 MG TABLET PO SCH ×2 (09:49→21:06)
[2020-05-27] MEDS: FUROSEMIDE 20 MG TABLET PO SCH (09:49)
--- NOTE | 2020-05-27 12:53 | P.PN ---
Subjective Date of Service: 05/27/20 Primary Care Provider: Caity Luna NP Chief Complaint: Respiratory failure No change still tachypneic short of breath Review of Systems General: Weakness Respiratory: Shortness of Breath Physical Examination - Vital Signs Temperature: 97 F Blood Pressure: 129/80 Pulse: 79 Respirations: 20 Pulse Ox (%): 92 - Studies Medications List Reviewed: Yes Assessment & Plan - Problems (Diagnosis) (1) Acute respiratory failure due to severe acute respiratory syndrome coronavirus 2 (SARS-CoV-2) infection Current Visit: Yes Status: Acute Plan: Respiratory failure continue to titrate his oxygen down possible discharge in 1 or 2 days continue with present medication labs reviewed
--- NOTE | 2020-05-27 13:52 | P.PN ---
Subjective Date of Service: 05/27/20 Primary Care Provider: Caity Luna NP Chief Complaint: Respiratory failure Subjective: Improving Physical Examination - Vital Signs Temperature: 97 F Blood Pressure: 129/80 Pulse: 79 Respirations: 20 Pulse Ox (%): 92 - Studies Medications List Reviewed: Yes Assessment & Plan Discharge Plan: Home Plan to discharge in: 48 Hours Physician Review Additional Text: Initial Chief Complaint: Shortness of breath related to COVID Physical exam: Patient alert, cooperative. No significant distress noted. Heart: Regular rate Lungs: Patient currently on 8 L per nasal cannula. No significant respiratory distress noted. GI: No abdominal distention. Extremities: No edema to the lower extremity. Good range of motion to the upper and lower extremities without deficit. Impression: Dyspnea secondary to acute respiratory failure with hypoxia related to bilateral COVID 19 pneumonia Hypertension Elevated liver function likely related to Remdesivir Plan: Dyspnea secondary to acute respiratory failure with hypoxia related to bilateral COVID 19 pneumonia: Patient continues to slowly improved. Currently on 8 L per nasal cannula. Anticipate improvement over the next 48 hr. Respiratory to continue to decrease oxygen use. Continue current IV Solu-Medrol and supplementation. Continue Eliquis for DVT prophylaxis. Encourage incentive spirometer. Encourage proning. Encourage ambulation if possible. Anticipate improvement over the next 48-72 hr. Hypertension: Continue home medication of lisinopril and metoprolol Elevated liver function likely related to Remdesivir: Medication discontinued. Time Spent Managing Pts Care (In Minutes): 55
[2020-05-27] MEDS: GUAIFENESIN/CODEINE 5ML UCUP PO PRN (21:06)
[2020-05-27] MEDS: MELATONIN 5 MG TABLET PO SCH (21:06)
[2020-05-28] MEDS: METOPROLOL TAR 25 MG TAB PO SCH ×2 (06:13→18:32)
[2020-05-28] MEDS: lisinopriL 10 MG TAB PO SCH ×2 (09:00→09:43)
[2020-05-28] MEDS: ZINC SULFATE 220 MG CAP PO SCH (09:43)
[2020-05-28] MEDS: ASCORBIC ACID 500 MG TABLET PO SCH ×3 (09:43→21:20)
[2020-05-28] MEDS: FUROSEMIDE 20 MG TABLET PO SCH (09:43)
[2020-05-28] MEDS: THIAMINE HCL 100 MG TABLET PO SCH ×2 (09:43→21:21)
[2020-05-28] MEDS: VITAMIN D 1000 UNIT TAB PO SCH (09:43)
[2020-05-28] MEDS: METHYLPREDNISOLONE 125 MG INJ IV SCH ×2 (09:43→21:21)
[2020-05-28] MEDS: APIXABAN 5 MG TABLET PO SCH ×2 (09:57→21:20)
[2020-05-28] MEDS: MELATONIN 5 MG TABLET PO SCH (21:20)
[2020-05-28] MEDS: GUAIFENESIN/CODEINE 5ML UCUP PO PRN (23:30)
[2020-05-29] MEDS: METOPROLOL TAR 25 MG TAB PO SCH ×2 (06:30→17:48)
[2020-05-29] MEDS: APIXABAN 5 MG TABLET PO SCH ×2 (07:47→20:04)
[2020-05-29] MEDS: ASCORBIC ACID 500 MG TABLET PO SCH ×3 (07:47→20:03)
[2020-05-29] MEDS: lisinopriL 10 MG TAB PO SCH (07:47)
[2020-05-29] MEDS: FUROSEMIDE 20 MG TABLET PO SCH (07:47)
[2020-05-29] MEDS: VITAMIN D 1000 UNIT TAB PO SCH (07:47)
[2020-05-29] MEDS: THIAMINE HCL 100 MG TABLET PO SCH ×2 (07:47→20:03)
[2020-05-29] MEDS: ZINC SULFATE 220 MG CAP PO SCH (07:48)
[2020-05-29] MEDS: METHYLPREDNISOLONE 125 MG INJ IV SCH (07:56)
[2020-05-29] MEDS: METHYLPREDNISOLONE 40 MG INJ IV SCH ×2 (08:42→20:04)
--- NOTE | 2020-05-29 11:36 | P.PN ---
Subjective Date of Service: 05/29/20 Primary Care Provider: Caity Luna NP Chief Complaint: Respiratory failure Subjective: Improving, Doing well Physical Examination - Vital Signs Temperature: 97.1 F Blood Pressure: 120/81 Pulse: 97 Respirations: 19 Pulse Ox (%): 91 - Studies Medications List Reviewed: Yes Assessment & Plan Discharge Plan: Home Plan to discharge in: 24 Hours Physician Review Additional Text: Initial Chief Complaint: 55-year-old male presented with Shortness of breath related to COVID Physical exam: Patient alert, cooperative. No significant distress noted. Heart: Regular rate Lungs: Patient currently on 7 L per nasal cannula. No significant respiratory distress noted. GI: No abdominal distention. Extremities: No edema to the lower extremity. Good range of motion to the upper and lower extremities without deficit. Impression: Dyspnea secondary to acute respiratory failure with hypoxia related to bilateral COVID 19 pneumonia Hypertension Elevated liver function likely related to Remdesivir Plan: Dyspnea secondary to acute respiratory failure with hypoxia related to bilateral COVID 19 pneumonia: Patient continues to improve. Patient now on 7 L per nasal cannula. Will have respiratory tried to wean down below 4 L. If able to wean down to 4 L will consider discharge as early as today. Continue current IV Solu-Medrol and supplementation. Continue Eliquis for DVT prophylaxis. Encourage incentive spirometer. Encourage proning. Encourage ambulation. Possible discharge later today if significantly improved if not hopefully tomorrow if oxygen can be weaned down. I will turn the service over to the hospitalist team tomorrow. I will go plan of care with him. Hypertension: Continue home medication of lisinopril and metoprolol Elevated liver function likely related to Remdesivir: Medication discontinued. Time Spent Managing Pts Care (In Minutes): 55
[2020-05-29] MEDS: ACETAMINOPHEN 500 MG TAB PO PRN (15:46)
[2020-05-29] MEDS: MELATONIN 5 MG TABLET PO SCH (20:03)
[2020-05-30] MEDS: TEMAZEPAM 15 MG CAP PO PRN ×2 (00:42→22:16)
[2020-05-30] MEDS: METOPROLOL TAR 25 MG TAB PO SCH ×2 (05:41→17:02)
[2020-05-30] MEDS: VITAMIN D 1000 UNIT TAB PO SCH (07:25)
[2020-05-30] MEDS: ZINC SULFATE 220 MG CAP PO SCH (07:25)
[2020-05-30] MEDS: THIAMINE HCL 100 MG TABLET PO SCH ×2 (07:26→22:11)
[2020-05-30] MEDS: lisinopriL 10 MG TAB PO SCH (07:27)
[2020-05-30] MEDS: FUROSEMIDE 20 MG TABLET PO SCH (07:28)
[2020-05-30] MEDS: ASCORBIC ACID 500 MG TABLET PO SCH ×3 (07:28→22:11)
[2020-05-30] MEDS: METHYLPREDNISOLONE 40 MG INJ IV SCH ×2 (07:28→22:11)
[2020-05-30] MEDS: APIXABAN 5 MG TABLET PO SCH ×2 (07:28→22:11)
--- NOTE | 2020-05-30 08:48 | P.PN ---
Subjective Date of Service: 05/30/20 Primary Care Provider: Caity Luna NP Chief Complaint: Respiratory failure Subjective: Improving, Doing well Physical Examination - Vital Signs Temperature: 96.9 F Blood Pressure: 116/59 Pulse: 70 Respirations: 18 Pulse Ox (%): 96 - Studies Medications List Reviewed: Yes Assessment & Plan Discharge Plan: Home Plan to discharge in: 24 Hours Physician Review Additional Text: Initial Chief Complaint: 55-year-old male presented with Shortness of breath related to COVID Physical exam: Patient alert, cooperative. No significant distress noted. Heart: Regular rate Lungs: Patient currently on 7-8 L per nasal cannula. No significant respiratory distress noted. GI: No abdominal distention. Extremities: No edema to the lower extremity. Good range of motion to the upper and lower extremities without deficit. Impression: Dyspnea secondary to acute respiratory failure with hypoxia related to bilateral COVID 19 pneumonia Hypertension Elevated liver function likely related to Remdesivir Plan: Dyspnea secondary to acute respiratory failure with hypoxia related to bilateral COVID 19 pneumonia: Patient continues to improve. Patient now on 7-8 L per nasal cannula. Will have respiratory continue to try to wean down below 4 L. If able to wean down to less than 4 L will consider discharge as early as today. Continue current IV Solu-Medrol and supplementation. Continue Eliquis for DVT prophylaxis. Encourage incentive spirometer. Encourage proning. Encourage ambulation. Possible discharge later today if significantly improved if not hopefully tomorrow if oxygen can be weaned down. I will turn the service over to the hospitalist team tomorrow. I will go plan of care with him. Hypertension: Continue home medication of lisinopril and metoprolol Elevated liver function likely related to Remdesivir: Medication discontinued. Time Spent Managing Pts Care (In Minutes): 55
[2020-05-30] MEDS: MELATONIN 5 MG TABLET PO SCH (22:11)
[2020-05-31] MEDS: METOPROLOL TAR 25 MG TAB PO SCH (05:29)
--- NOTE | 2020-05-31 08:33 | P.PN ---
Subjective Date of Service: 05/31/20 Primary Care Provider: Caity Luna NP Chief Complaint: Respiratory failure Doing well patient is improving is on 4 L on nasal cannula oxygen Review of Systems General: Weakness Respiratory: Shortness of Breath Physical Examination - Vital Signs Temperature: 97.5 F Blood Pressure: 116/67 Pulse: 98 Respirations: 20 Pulse Ox (%): 92 - Physical Exam General: Alert, In no apparent distress, Oriented x3 Respiratory: Clear to auscultation bilaterally - Studies Medications List Reviewed: Yes Assessment & Plan - Problems (Diagnosis) (1) Acute respiratory failure due to severe acute respiratory syndrome coronavirus 2 (SARS-CoV-2) infection Current Visit: Yes Status: Acute Plan: Patient is improving plan to discharge follow-up with me in 2 weeks
[2020-05-31] MEDS: ASCORBIC ACID 500 MG TABLET PO SCH ×2 (08:46→12:33)
[2020-05-31] MEDS: APIXABAN 5 MG TABLET PO SCH (08:46)
[2020-05-31] MEDS: FUROSEMIDE 20 MG TABLET PO SCH (08:46)
[2020-05-31] MEDS: THIAMINE HCL 100 MG TABLET PO SCH (08:46)
[2020-05-31] MEDS: VITAMIN D 1000 UNIT TAB PO SCH (08:46)
[2020-05-31] MEDS: ZINC SULFATE 220 MG CAP PO SCH (08:47)
[2020-05-31] MEDS: lisinopriL 10 MG TAB PO SCH (08:47)
[2020-05-31] MEDS: METHYLPREDNISOLONE 40 MG INJ IV SCH (08:47)
--- NOTE | 2020-05-31 09:51 | P.DS ---
Discharge Date: 05/31/20 Primary Care Provider: Caity Luna NP Disposition: ROUTINE DISCHARGE Discharge Condition: GOOD Reason for Admission: Respiratory failure Consultations: Pulmonary - Problems (1) Pneumonia due to COVID-19 virus Current Visit: Yes Status: Acute (2) Hypoxemia Current Visit: Yes Status: Acute (3) Acute respiratory failure due to severe acute respiratory syndrome coronavirus 2 (SARS-CoV-2) infection Current Visit: Yes Status: Acute Brief History of Present Illness: Patient is a 55-year-old gentleman who came to the hospital with covid pneumonia. Patient was severely ill and in acute respiratory failure requiring BiPAP support. Patient clinical condition needed to be monitored very closely in the hospital. Hospital Course: Patient did well during hospital stay. Patient did take a long time for his hypoxemia to resolve. He did actively work in the room by getting out of bed and walking in place. Patient oxygenation improved and he was on 4 L of oxygen today. At this time patient is doing well and is stable for discharge. Vital Signs/Physical Exam: Temp Pulse Resp BP Pulse Ox 97.5 F 98 H 20 116/67 92 05/31/20 08:33 05/31/20 08:33 05/31/20 08:33 05/31/20 08:33 05/31/20 08:33 General: Alert, In no apparent distress, Oriented x3 Respiratory: Clear to auscultation bilaterally, Normal air movement Cardiovascular: No edema, Normal pulses, Regular rate/rhythm, Normal S1 S2, No gallops, No rubs, No murmurs Capillary refill: <2 Seconds Laboratory Data at Discharge: WBC 16.90 K/uL (4.3-10.9) H D 05/25/20 03:10 Hgb 14.1 g/dL (13.6-17.9) 05/25/20 03:10 Hct 42.5 % (39.6-49.0) 05/25/20 03:10 Plt Count 332 K/uL (152-406) 05/25/20 03:10 PT Cancelled 05/10/20 10:56 INR Cancelled 05/10/20 10:56 APTT Cancelled 05/10/20 10:56 Sodium 133 mmol/L (136-145) L 05/25/20 03:10 Potassium 4.7 mmol/L (3.5-5.1) 05/25/20 03:10 BUN 25 mg/dL (7-18) H 05/25/20 03:10 Creatinine 0.76 mg/dL (0.55-1.3) 05/25/20 03:10 Glucose 168 mg/dL (74-106) H 05/25/20 03:10 Phosphorus 4.4 mg/dL (2.5-4.9) 05/22/20 05:15 Magnesium 2.5 mg/dL (1.8-2.4) H 05/22/20 05:15 Total Bilirubin 0.7 mg/dL (0.2-1.0) 05/25/20 03:10 AST 41 U/L (15-37) H 05/25/20 03:10 ALT 256 U/L (12-78) H 05/25/20 03:10 Alkaline Phosphatase 72 U/L (45-117) 05/25/20 03:10 Lipase Cancelled 05/10/20 10:56 Imagings Data: EXAM DESCRIPTION: RAD - Chest Single View - 05/15/2020 6:23 am CLINICAL HISTORY: follow up COVID Chest pain. COMPARISON: Chest Single View dated 05/10/2020 FINDINGS: Portable technique limits examination quality. Extensive bilateral pulmonary opacities are again noted, mildly progressive since the comparative study. The heart is normal in size. No displaced fractures. IMPRESSION: Mild worsening in lung aeration seen since comparative study. Home Medications: Atorvastatin Calcium [Lipitor*] 20 mg PO DAILY 05/11/20 Lisinopril [Zestril] 20 mg PO DAILY 05/11/20 Albuterol Inhaler [Ventolin Inhaler*] 2 puff IH Q6H PRN #1 hfa.aer.ad 05/31/20 Apixaban [Eliquis] 5 mg PO BID #20 tablet 05/31/20 Ascorbic Acid [Vitamin C*] 500 mg PO TID #30 tablet 05/31/20 Benzonatate [Tessalon Perle*] 100 mg PO TID PRN #30 cap 05/31/20 Cholecalciferol (Vitamin D3) [Vitamin D 1000 Iu Tab*] 4,000 unit PO DAILY #30 tab 05/31/20 Furosemide [Lasix*] 20 mg PO DAILY #30 tab 05/31/20 Metoprolol Tartrate [Lopressor*] 25 mg PO BID 6AM 6PM #60 tab 05/31/20 predniSONE [Prednisone*] 20 mg PO BID #21 tab 05/31/20 New Medications: Apixaban [Eliquis] 5 mg PO BID #20 tablet Furosemide [Lasix*] 20 mg PO DAILY #30 tab Metoprolol Tartrate [Lopressor*] 25 mg PO BID 6AM 6PM #60 tab predniSONE [Prednisone*] 20 mg PO BID #21 tab Benzonatate [Tessalon Perle*] 100 mg PO TID PRN #30 cap PRN Reason: Cough Albuterol Inhaler [Ventolin Inhaler*] 2 puff IH Q6H PRN #1 hfa.aer.ad PRN Reason: Shortness Of Breath Ascorbic Acid [Vitamin C*] 500 mg PO TID #30 tablet Cholecalciferol (Vitamin D3) [Vitamin D 1000 Iu Tab*] 4,000 unit PO DAILY #30 tab Physician Discharge Instructions: PROBLEM: COVID-19 Pneumonia GOAL: Clear understanding of disease process E-scripts sent to [facility] in [place]. INSTRUCTIONS: - Ok to discontinue IV and discharge home. - Follow up with primary care provider in 1-2 weeks. - Follow up with subscription crew leader, Dr. Pickens, in 1-2 weeks. - Return to the ER if symptoms worsen. - Call or text Dr. Joe at if any questions regarding hospital stay. - Please call the 4th floor at if any medication or nursing questions. Call [facility] when you get home for oxygen concentrator delivery. Diet: Regular Activity: Fall precautions DME DME: Home oxygen Date Ordered: 05/30/2020 Name of Company: [facility] [employer] Influenza Vaccine Indicated: No Influenza Vaccine Given: Date Given: Pneumonia Vaccine Indicated: No Pneumonia Vaccine Given: Date Given: PROBLEM: (list out Acute Problems for the Current visit) GOAL: Clear understanding of disease process INSTRUCTIONS: Diet: Regular Activity: Fall precautions DME DME: Date Ordered: Name of Company: [employer] Services Needed: None Name of Company: Date or Referral: IMMUNIZATION Influenza Vaccine Indicated: No Influenza Vaccine Given: Date Given: Pneumonia Vaccine Indicated: No Pneumonia Vaccine Given: Date Given: Diet: Regular Activity: Fall precautions Followup: Torsten Pickens MD [ACTIVE - CAN ADMIT] - 1-2 Weeks (Follow up in office in 1-2 weeks. Call to schedule an appointment.) Time spent managing pt's care (in minutes): 70
[2020-05-31 10:05] VITALS: O2SAT 94
[2020-05-31 13:01] VITALS: BP 138/85; TEMP 97.2
--- NOTE | 2020-06-16 07:43 | P.PN ---
Subjective Date of Service: 05/28/20 Primary Care Provider: Caity Luna NP Chief Complaint: Respiratory failure Subjective: No new changes Physical Examination - Vital Signs Temperature: 97.2 F Blood Pressure: 138/85 Pulse: 98 Respirations: 20 Pulse Ox (%): 93 - Studies Medications List Reviewed: Yes Assessment & Plan Discharge Plan: Home Plan to discharge in: Greater than 2 days Physician Review Additional Text: Initial Chief Complaint: 55-year-old male presented with Shortness of breath related to COVID Physical exam: Patient alert, cooperative. No significant distress noted. Heart: Regular rate Lungs: No significant respiratory distress noted. GI: No abdominal distention. Extremities: No edema to the lower extremity. Good range of motion to the upper and lower extremities without deficit. Impression: Dyspnea secondary to acute respiratory failure with hypoxia related to bilateral COVID 19 pneumonia Hypertension Elevated liver function likely related to Remdesivir Plan: Dyspnea secondary to acute respiratory failure with hypoxia related to bilateral COVID 19 pneumonia: Patient continues to improve. No new changes from yesterday. Continue current IV Solu-Medrol and supplementation. Continue Eliquis for DVT prophylaxis. Encourage incentive spirometer. Encourage proning. Encourage ambulation. Hypertension: Continue home medication of lisinopril and metoprolol Elevated liver function likely related to Remdesivir: Medication discontinued. Time Spent Managing Pts Care (In Minutes): 55
== END 2020-05-31 15:00 | disposition home or self-care (01) | DRG 177 ==
LOC: ER 10:20 → ERHOLD 14:32 → 4TH 05-12 19:49
PROVIDERS: ADMIT Family Medicine; ATTEND Hospitalist
PROC: XW033E5 Introduction of Remdesivir Anti-infective into Peripheral Vein, Percutaneous Approach, New Technology Group 5 (ICD-10-PCS; principal; 2020-05-10)
PROC: 5A09557 Assistance with Respiratory Ventilation, Greater than 96 Consecutive Hours, Continuous Positive Airway Pressure (ICD-10-PCS; 2020-05-27)
DX: U07.1 COVID-19 (principal); J12.82 Pneumonia due to coronavirus disease 2019; J96.01 Acute respiratory failure with hypoxia; I10 Essential (primary) hypertension; R79.89 Other specified abnormal findings of blood chemistry; Z79.01 Long term (current) use of anticoagulants; Z79.52 Long term (current) use of systemic steroids; Z79.899 Other long term (current) drug therapy
CPT/HCPCS: 0240U; 36415; 71045; 71275; 80048; 80053; 80076; 81003; 81015; 82248; 82565; 82728; 82805; 83605; 83690; 83735; 83880; 84100; 84145; 85025; 85379; 85610; 85730; 86140; 87040; 87086; 87088; 93005; 93970; 94002; 94003; 94010; 94760; 96365; 96367; 96368; 96375; 99285; J0456; J0692; J2920; J2930; J7030; J7040; J7050; Q9967

== ENCOUNTER → 2023-06-24 | Emergency (ER) | payer OTHER ==
[~2023-06-24] MED LIST: FAMOTIDINE 20 MG/2 ML VIAL IV ONE; MORPHINE 2 MG/ML SYR ONE; MORPHINE 4 MG/ML SYR ONE; NA CHLORIDE 0.9% 1,000 ML ONE; ONDANSETRON 4 MG/2 ML VIAL ONE
--- OUTSIDE RECORDS SUMMARY | 2023-06-24 10:37 | XMS REPORT | Continuity of Care Document ---
Author Name Unknown Address [address] [facility] [place] [address] [facility] thconnect Address [address] [facility] [address] [place] [address] Care Team Providers Care Shredder Operator Name Role Phone Trav Puri Primary Care Physician [phone] CRISSY OWENS Attending Clinician Unava ilable JAYME SANABRIA Attending Clinician Unavailable KEVEN MENDOSA Attending Clinician Unavailable LAB47 Attending Clinician Unavailable RHETT LYNN Attending Clinician Unavailabl e LAB90 Attending Clinician Unavailable HEMALATHA HUDDLESTON Attending Clinician Unavailab le MISTID47 Attending Clinician Unavailable GUNNAR MOSELEY Attending Clinician Unava ilable JAMIA PETERSON Attending Clinician Unava ilable 39, HOLTER Attending Clinician Unavailable ULISES TATE Attending Clinician Unavailable ALPA KUNZ Attending Clinician Unavailable LAB53 Attending Clinician Unavailable VAZQUEZ GALLARDO Attending Clinician Unavailable MD ROBERT Attending Clinician Unavailab SANDRA Iverson Attending Clinician Unavailab le Payers Payer Name Policy Type Policy Number Effective Date Expirati on Date Source RAFAEL PEDROZA S 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 94 ON 9 [id number] 2022 00:00:00 Problems Condition Name Condition Details Condition Category Status Onset Date Resolution Date Last Treatment Date Treating Clinician Comments Source Class 2 severe obesity due to excess calories with serious comorbidit y and body mass index (BMI) of 37.0 to 37.9 in adult Class 2 severe obesity due to excess calories with serious comorbidit y and body mass index (BMI) of 37.0 to 37.9 in adult Disease Active 2022-04-16 00:00: 00 Mamie phelps Psoriasis Psoriasis Disease Active 08-29 00:00: 00 Mamie Howarda lenin Primary hypertensi on Primary hypertensi on Disease Active 08-29 00:00: 00 Mamie Howarda lenin DM type 2 with diabetic mixed hyperlipid emia (multi HCC) DM type 2 with diabetic mixed hyperlipid emia (multi HCC) Disease Active 07-30 00:00: 00 Mamie phelps No known active problems No known active problems Disease Mamie Howarda lenin Social History Social Habit Start Date Stop Date Quantity Comments Source Sexual orientation Susie Lora - External History of tobacco use Cigarette Smoker Mamie chavez - External Gender identity Bev Lora - External Alcohol intake 2023-06-14 00:00:00 2023-06-14 00:00:00 Ex-drinker (finding) Mamie Lora - External History of Social function 2022-12-25 00:00:00 2022-12-25 00:00:00 Mamie Lora - External Tobacco use and exposure 2022-09-05 00:00:00 2022-09-05 00:00:00 Smokeless tobacco non-user Mamie Lora - External Tobacco Comment 2022-07-24 00:00:00 2022-07-24 00:00:00 Patient stated he smoked for 10 years - no ppd history, no quit date - see ct history form dated 07-20-22 Mamie Lora - External Sex Assigned At 1965 00:00:00 1965 00:[birth year]:00 Mamie Lora - External Smoking Status Start Date Stop Date Source Ex-smoker 2022-09-05 00:00:00 2022-09-05 00:00:00 Susie Lora - External Never smoked tobacco Mamie Lora - External Medications Ordered Medication Name Filled Medication Name Start Date Stop Date Current Medication? Ordering Clinician Indication Dosage Frequency Signature (SIG) Comments Components Source Omeprazole 20 MG oral Tablet Delayed Response 3-11 00:00: 00 Yes [id number] 20mg Take 1 tablet (20 mg total) by mouth daily. Mamie phelps Guselkumab (Tremfya) 100 MG/ML subcutaneou s Solution Pen-injecto r 3-08 00:00: 00 Yes Inject 100mg (1 mL) subcutaneo usly at week 0, then week 4, then every 8 weeks thereafter .. Mamie phelps Guselkumab (Tremfya) 100 MG/ML subcutaneou s Solution Pen-injecto r 3-08 00:00: 00 Yes Inject 100mg (1 mL) subcutaneo usly at week 0, then week 4, then every 8 weeks thereafter .. Mamie phelps Aspirin (Aspirin Low Dose) 81 MG oral Tablet Delayed Response 2 00:00: 00 Yes 81mg Take 1 tablet (81 mg total) by mouth daily. Mamie phelps Atorvastati n Calcium 40 MG oral Tablet - 00:00: 00 Yes [id number] 3 40mg Take 1 tablet (40 mg total) by mouth nightly. Mamie phelps Lisinopril 10 MG oral Tablet - 00:00: 00 Yes [id number] 10mg Take 1 tablet (10 mg total) by mouth daily. Mamie phelps Aspirin (Aspirin Low Dose) 81 MG oral Tablet Delayed Response 2- 00:00: 00 Yes 81mg Take 1 tablet (81 mg total) by mouth daily. Mamie phelps Atorvastati n Calcium 40 MG oral Tablet 2- 00:00: 00 Yes [id number] 3 40mg Take 1 tablet (40 mg total) by mouth nightly. Mamie phelps Lisinopril 10 MG oral Tablet 2- 00:00: 00 Yes [id number] 10mg Take 1 tablet (10 mg total) by mouth daily. Mamie phelps Dulaglutide (Trulicity) 3 MG/0.5ML subcutaneou s Solution Pen-injecto r 2-12 00:00: 00 Yes [id number] 3 3mg Inject 3 mg into the skin once a week. Mamie phelps Dulaglutide (Trulicity) 3 MG/0.5ML subcutaneou s Solution Pen-injecto r 2-12 00:00: 00 Yes [id number] 3 3mg Inject 3 mg into the skin once a week. Mamie phelps Metoprolol Tartrate (LOPRESSOR) 100 MG oral Tablet 1-17 00:00: 00 Yes [id number] 100mg Take 1 tablet (100 mg total) by mouth 2 times daily. Mamie phelps Metoprolol Tartrate (LOPRESSOR) 100 MG oral Tablet - 00:00: 00 Yes [id number] 100mg Take 1 tablet (100 mg total) by mouth 2 times daily. Mamie phelps Sildenafil Citrate 50 MG oral Tablet 2022-04 2- 00:00: 00 Yes [id number] 50mg QD Take 1 tablet (50 mg total) by mouth daily as needed for erectile dysfunctio n. Mamie phelps Sildenafil Citrate 50 MG oral Tablet 2022-04- 00:00: 00 Yes [id number] 50mg QD Take 1 tablet (50 mg total) by mouth daily as needed for erectile dysfunctio n. Mamie phelps Metoprolol Tartrate (LOPRESSOR) 100 MG oral Tablet 2022-04 0-15 00:00: 00 Yes [id number] 100mg TAKE 1 TABLET BY MOUTH 2 TIMES DAILY Mamie phelps hydrOXYzine HCl 10 MG oral Tablet 2022-04 0-12 00:00: 00 Yes [id number] 10mg Take 1 tablet (10 mg total) by mouth at bedtime as needed for itching. Mamie phelps hydrOXYzine HCl 10 MG oral Tablet 2022-04 0-12 00:00: 00 Yes [id number] 10mg Take 1 tablet (10 mg total) by mouth at bedtime as needed for itching. Mamie phelps hydrOXYzine HCl 10 MG oral Tablet 2022-04 0-12 00:00: 00 04-18 05:59 :00 No [id number] 10mg Take 1 tablet (10 mg total) by mouth at bedtime as needed for itching. Mamie phelps cycloSPORIN E Modified 100 MG oral Capsule 12-25 00:00: 00 02-21 00:00 :00 No [id number] Take two capsules twice daily for 2 weeks. Mamie phelps Clobetasol Propionate 0.05 % apply externally Ointment 12-25 00:00: 00 02-21 00:00 :00 No [id number] Apply sparingly BID to rash of scalp and body Mon-Sat PRN. Not for use on face, armpits or groin.. Mamie phelps Desonide 0.05 % apply externally Ointment 12-25 00:00: 00 02-21 00:00 :00 No [id number] Apply BID sparingly to rash of face, armpits or groin Mon-Sat PRN.. Mamie phelps Trulicity 3 MG/0.5ML subcutaneou s Solution Pen-injecto r 10-30 00:00: 00 Yes [id number] 3 3mg Inject 3 mg into the skin once a week Mamie phelps hydrOXYzine HCl 10 MG oral Tablet 10-22 15:29: 05 Yes 10mg QD Take 1 tablet (10 mg total) by mouth nightly as needed for itching (1 to 2 tabs at bedtime for itching) Mamie phelps Clobetasol Propionate 0.05 % apply externally Ointment 10-22 00:00: 00 Yes [id number] Apply sparingly BID to rash of scalp and body Mon-Sat PRN. Not for use on face, armpits or groin. Mamie phelps Risankizuma b-rzaa (SKYRIZI) 150 MG/ML subcutaneou s Solution Auto-inject or 10-22 00:00: 00 Yes [id number] Inject 150mg SQ q 12 weeks for psoriasis. Mamie phelps Risankizuma b-rzaa (SKYRIZI) 150 MG/ML subcutaneou s Solution Auto-inject or 10-22 00:00: 00 Yes [id number] Inject 150mg SQ q 12 weeks for psoriasis. Mamie phelps Risankizuma b-rzaa (SKYRIZI) 150 MG/ML subcutaneou s Solution Auto-inject or 10-22 00:00: 00 Yes [id number] Inject 150mg SQ q 12 weeks for psoriasis. Mamie phelps Risankizuma b-rzaa (SKYRIZI) 150 MG/ML subcutaneou s Solution Auto-inject or 10-22 00:00: 00 Yes [id number] Inject 150mg SQ q 12 weeks for psoriasis. Mamie phelps Sildenafil Citrate 50 MG oral Tablet 09-12 00:00: 00 Yes [id number] 50mg QD Take 1 tablet (50 mg total) by mouth daily as needed for erectile dysfunctio n Mamie phelps Sildenafil Citrate 50 MG oral Tablet 09-12 00:00: 00 Yes [id number] 50mg QD Take 1 tablet (50 mg total) by mouth daily as needed for erectile dysfunctio n Mamie phelps Atorvastati n Calcium 40 MG oral Tablet 09-05 00:00: 00 Yes [id number] 3 40mg Take 1 tablet (40 mg total) by mouth nightly Mamie phelps Lisinopril 10 MG oral Tablet 09-05 00:00: 00 Yes [id number] 10mg Take 1 tablet (10 mg total) by mouth daily Mamie phelps Aspirin 81 MG oral Tablet Delayed Response 09-05 00:00: 00 Yes 81mg Take 1 tablet (81 mg total) by mouth daily Mamie phelps Atorvastati n Calcium 40 MG oral Tablet 09-05 00:00: 00 Yes [id number] 3 40mg Take 1 tablet (40 mg total) by mouth nightly Mamie phelps Lisinopril 10 MG oral Tablet 09-05 00:00: 00 Yes [id number] 10mg Take 1 tablet (10 mg total) by mouth daily Mamie phelps Aspirin 81 MG oral Tablet Delayed Response 09-05 00:00: 00 Yes 81mg Take 1 tablet (81 mg total) by mouth daily Mamie phelps Atorvastati n Calcium 20 MG oral Tablet 08-29 00:00: 00 Yes [id number] 3 20mg Take 1 tablet (20 mg total) by mouth nightly Mamie phelps Dulaglutide (Trulicity) 1.5 MG/0.5ML subcutaneou s Solution Pen-injecto r 08-29 00:00: 00 Yes [id number] 3 1.5mg Inject 1.5 mg into the skin once a week Mamie phelps Dulaglutide (Trulicity) 1.5 MG/0.5ML subcutaneou s Solution Pen-injecto r 08-29 00:00: 00 Yes [id number] 3 1.5mg Inject 1.5 mg into the skin once a week Mamie phelps Metformin HCl 500 MG oral Tablet 08-29 00:00: 00 Yes [id number] 3 500mg Take 1 tablet (500 mg total) by mouth daily Mamie phelps Metformin HCl 500 MG oral Tablet 08-29 00:00: 00 Yes [id number] 3 500mg Take 1 tablet (500 mg total) by mouth daily Mamie phelps Metformin HCl 500 MG oral Tablet 08-29 00:00: 00 Yes [id number] 3 500mg Take 1 tablet (500 mg total) by mouth daily Mamie phelps Metformin HCl 500 MG oral Tablet 08-29 00:00: 00 Yes [id number] 3 500mg Take 1 tablet (500 mg total) by mouth daily Mamie phelps Trulicity 1.5 MG/0.5ML subcutaneou s Solution Pen-injecto r 08-29 00:00: 00 08-29 00:00 :00 No [id number] 3 1.5mg Inject 1.5 mg into the skin once a week Mamie phelps Risankizuma b-rzaa (SKYRIZI) 150 MG/ML subcutaneou s Solution Auto-inject or 08-10 00:00: 00 Yes [id number] Inject 150mg SQ q 12 weeks for psoriasis. Mamie phelps Risankizuma b-rzaa (SKYRIZI) 150 MG/ML subcutaneou s Solution Auto-inject or 08-10 00:00: 00 10-22 00:00 :00 No [id number] Inject 150mg SQ q 12 weeks for psoriasis. Mamie phelps Lisinopril 5 MG oral Tablet 07-31 00:00: 00 Yes [id number] 5mg Take 1 tablet (5 mg total) by mouth daily Mamie phelps Metoprolol Tartrate (LOPRESSOR) 100 MG oral Tablet 07-30 00:00: 00 Yes [id number] 100mg Take 1 tablet (100 mg total) by mouth 2 times daily Mamie phelps Trulicity 0.75 MG/0.5ML subcutaneou s Solution Pen-injecto r 07-30 00:00: 00 Yes [id number] 3 .75mg Inject 0.75 mg into the skin once a week Mamie phelps Lisinopril 5 MG oral Tablet 07-30 00:00: 00 Yes [id number] 5mg Take 1 tablet (5 mg total) by mouth daily Mamie phelps Metoprolol Tartrate (LOPRESSOR) 100 MG oral Tablet -24 00:00: 00 Yes [id number] 100mg Take 1 tablet (100 mg total) by mouth 2 times daily Mamie phelps Metoprolol Tartrate (LOPRESSOR) 100 MG oral Tablet 24 00:00: 00 Yes [id number] 100mg Take 1 tablet (100 mg total) by mouth 2 times daily Mamie phelps Trulicity 0.75 MG/0.5ML subcutaneou s Solution Pen-injecto r 07-30 00:00: 00 08-29 00:00 :00 No [id number] 3 .75mg Inject 0.75 mg into the skin once a week Mamie phelps hydrOXYzine HCl 10 MG oral Tablet 07-16 10:44: 56 Yes 10mg QD Take 1 tablet (10 mg total) by mouth nightly as needed for itching (1 to 2 tabs at bedtime for itching) Mamie phelps hydrOXYzine HCl 10 MG oral Tablet 07-16 10:44: 56 Yes 10mg QD Take 1 tablet (10 mg total) by mouth nightly as needed for itching (1 to 2 tabs at bedtime for itching) Mamie phelps hydrOXYzine HCl 10 MG oral Tablet 07-16 10:44: 56 Yes 10mg QD Take 1 tablet (10 mg total) by mouth nightly as needed for itching (1 to 2 tabs at bedtime for itching) Mamie phelps Benzonatate (Tessalon Perles) 100 MG oral Capsule 07-16 00:00: 00 Yes [id number] 100mg Q.[id number] 3D Take 1 capsule (100 mg total) by mouth 3 times daily as needed for cough Mamie phelps predniSONE (DELTASONE) 10 MG oral tablet 07-16 00:00: 00 Yes [id number] 10mg Take 1 tablet (10 mg total) by mouth daily Mamie phelps Albuterol HFA 108 (90 Base) MCG/ACT IN AERS 07-16 00:00: 00 Yes [id number] 2{puff} Q.25D Inhale 2 puffs into the lungs every 6 hours as needed for wheezing or shortness of breath Mamie phelps Benzonatate (Tessalon Perles) 100 MG oral Capsule 07-16 00:00: 00 Yes [id number] 100mg Q.[id number] 3D Take 1 capsule (100 mg total) by mouth 3 times daily as needed for cough Mamie Seybold - Externa l Albuterol HFA 108 (90 Base) MCG/ACT IN AERS 4- 00:00: 00 Yes [id number] 2{puff} Q.25D Inhale 2 puffs into the lungs every 6 hours as needed for wheezing or shortness of breath Mamie Seybold - Externa l Benzonatate (Tessalon Perles) 100 MG oral Capsule 4- 00:00: 00 Yes [id number] 100mg Q.[id number] 3D Take 1 capsule (100 mg total) by mouth 3 times daily as needed for cough Mamie Seybold - Externa l Albuterol HFA 108 (90 Base) MCG/ACT IN AERS 4 00:00: 00 Yes [id number] 2{puff} Q.25D Inhale 2 puffs into the lungs every 6 hours as needed for wheezing or shortness of breath Mamie Seybold - Externa l Benzonatate (Tessalon Perles) 100 MG oral Capsule 07-16 00:00: 00 Yes [id number] 100mg Q.[id number] 3D Take 1 capsule (100 mg total) by mouth 3 times daily as needed for cough Mamie Seybold - Externa l Albuterol HFA 108 (90 Base) MCG/ACT IN AERS 4 00:00: 00 Yes [id number] 2{puff} Q.25D Inhale 2 puffs into the lungs every 6 hours as needed for wheezing or shortness of breath Mamie Seybold - Externa l Albuterol HFA 108 (90 Base) MCG/ACT IN AERS 4 00:00: 00 Yes [id number] 2{puff} Q.25D Inhale 2 puffs into the lungs every 6 hours as needed for wheezing or shortness of breath Mamie Seybold - Externa l Albuterol HFA 108 (90 Base) MCG/ACT IN AERS 4- 00:00: 00 Yes [id number] 2{puff} Q.25D Inhale 2 puffs into the lungs every 6 hours as needed for wheezing or shortness of breath Mamie phelps Albuterol HFA 108 (90 Base) MCG/ACT IN AERS 07-16 00:00: 00 Yes [id number] 2{puff} Q.25D Inhale 2 puffs into the lungs every 6 hours as needed for wheezing or shortness of breath Mamie phelps Benzonatate (Tessalon Perles) 100 MG oral Capsule 07-16 00:00: 00 02-21 00:00 :00 No [id number] 100mg Q.[id number] 3D Take 1 capsule (100 mg total) by mouth 3 times daily as needed for cough Mamie phelps Azithromyci n 250 MG oral Tablet 07-16 00:00: 00 07-30 00:00 :00 No [id number] Take 2 tablets by mouth on day 1 then 1 tablet by mouth daily for 4 days thereafter . Mamie phelps predniSONE (DELTASONE) 10 MG oral tablet 07-16 00:00: 00 07-30 00:00 :00 No [id number] 10mg Take 1 tablet (10 mg total) by mouth daily Mamie phelps Azithromyci n 250 MG oral Tablet 07-16 00:00: 00 07-22 04:59 :00 No [id number] Take 2 tablets by mouth on day 1 then 1 tablet by mouth daily for 4 days thereafter . Mamie phelps hydrOXYzine HCl 10 MG oral Tablet 06-05 10:46: 46 Yes 10mg QD Take 10 mg by mouth nightly as needed for itching (1 to 2 tabs at bedtime for itching) Mamie phelps Sildenafil Citrate 50 MG oral Tablet 05-25 00:00: 00 Yes [id number] 50mg QD Take 1 tablet (50 mg total) by mouth daily as needed for erectile dysfunctio n Mamie phelps Sildenafil Citrate 50 MG oral Tablet 05-25 00:00: 00 Yes [id number] 50mg QD Take 1 tablet (50 mg total) by mouth daily as needed for erectile dysfunctio n Mamie Geno Childers Externa l Sildenafil Citrate 50 MG oral Tablet 2-17 00:00: 00 Yes [id number] 50mg QD Take 1 tablet (50 mg total) by mouth daily as needed for erectile dysfunctio n Mamie Joynervicentescott - Externa l Sildenafil Citrate 50 MG oral Tablet 2-17 00:00: 00 Yes [id number] 50mg QD Take 1 tablet (50 mg total) by mouth daily as needed for erectile dysfunctio n Mamie Joynervicentescott - Externa l Sildenafil Citrate 50 MG oral Tablet 2-14 00:00: 00 Yes [id number] 50mg QD Take 1 tablet (50 mg total) by mouth daily as needed for erectile dysfunctio n Mamie Geno Howarda lenin Risankizuma b-rzaa (SKYRIZI) 150 MG/ML subcutaneou s Solution Auto-inject or 2- 00:00: 00 Yes [id number] Inject 150mg SQ then in 4 weeks inject 150mg SQ. Thereafter inject 150mg SQ q 12 weeks for psoriasis. Mamie Childers Externa lenin Risankizuma b-rzaa (SKYRIZI) 150 MG/ML subcutaneou s Solution Auto-inject or 2 00:00: 00 Yes [id number] Inject 150mg SQ then in 4 weeks inject 150mg SQ. Thereafter inject 150mg SQ q 12 weeks for psoriasis. Mamie Lora - Externa l Risankizuma b-rzaa (SKYRIZI) 150 MG/ML subcutaneou s Solution Auto-inject or 2- 00:00: 00 Yes [id number] Inject 150mg SQ then in 4 weeks inject 150mg SQ. Thereafter inject 150mg SQ q 12 weeks for psoriasis. Mamie Lora - Externa l Risankizuma b-rzaa (SKYRIZI) 150 MG/ML subcutaneou s Solution Auto-inject or 2- 00:00: 00 Yes [id number] Inject 150mg SQ then in 4 weeks inject 150mg SQ. Thereafter inject 150mg SQ q 12 weeks for psoriasis. Mamie phelps hydrOXYzine HCl 10 MG oral Tablet 04-24 10:36: 38 Yes 10mg QD Take 10 mg by mouth nightly as needed for itching (1 to 2 tabs at bedtime for itching) Mamie phelps Ixekizumab 80 MG/ML subcutaneou s Solution Prefilled Syringe 04-24 10:36: 38 Yes 80mg Inject 80 mg into the skin Mamie phelps hydrOXYzine HCl 10 MG oral Tablet 04-24 10:36: 38 Yes 10mg QD Take 10 mg by mouth nightly as needed for itching (1 to 2 tabs at bedtime for itching) Mamie phelps Desonide 0.05 % apply externally Ointment 04-24 00:00: 00 Yes [id number] Apply BID sparingly to rash of face, armpits or groin Mon-Fri PRN. Mamie phelps Clobetasol Propionate 0.05 % apply externally Ointment 04-24 00:00: 00 Yes [id number] Apply sparingly BID to rash of body Mon-Fri PRN. Not for use on face, armpits or groin. Mamie phelps Desonide 0.05 % apply externally Ointment 04-24 00:00: 00 Yes [id number] Apply BID sparingly to rash of face, armpits or groin Mon-Fri PRN. Mamie phelps Clobetasol Propionate 0.05 % apply externally Ointment 04-24 00:00: 00 Yes [id number] Apply sparingly BID to rash of body Mon-Fri PRN. Not for use on face, armpits or groin. Mamie phelps Desonide 0.05 % apply externally Ointment 04-24 00:00: 00 Yes [id number] Apply BID sparingly to rash of face, armpits or groin Mon-Fri PRN. Mamie phelps Clobetasol Propionate 0.05 % apply externally Ointment 04-24 00:00: 00 Yes [id number] Apply sparingly BID to rash of body Mon-Fri PRN. Not for use on face, armpits or groin. Mamie Howarda lenin Desonide 0.05 % apply externally Ointment 04-24 00:00: 00 Yes [id number] Apply BID sparingly to rash of face, armpits or groin Mon-Fri PRN. Mamie Childers Externa lenin Desonide 0.05 % apply externally Ointment 04-24 00:00: 00 Yes [id number] Apply BID sparingly to rash of face, armpits or groin Mon-Fri PRN. Mamie Lora - Externa lenin Clobetasol Propionate 0.05 % apply externally Ointment 04-24 00:00: 00 Yes [id number] Apply sparingly BID to rash of body Mon-Fri PRN. Not for use on face, armpits or groin. Mamie phelps Desonide 0.05 % apply externally Ointment 04-24 00:00: 00 Yes [id number] Apply BID sparingly to rash of face, armpits or groin Mon-Fri PRN. Mamie Childers Externa lenin Clobetasol Propionate 0.05 % apply externally Ointment 04-24 00:00: 00 Yes [id number] Apply sparingly BID to rash of body Mon-Fri PRN. Not for use on face, armpits or groin. Mamie phelps Desonide 0.05 % apply externally Ointment 04-24 00:00: 00 Yes [id number] Apply BID sparingly to rash of face, armpits or groin Mon-Fri PRN. Mamie Lora - Externa l Clobetasol Propionate 0.05 % apply externally Ointment 04-24 00:00: 00 Yes [id number] Apply sparingly BID to rash of body Mon-Fri PRN. Not for use on face, armpits or groin. Mamie Lora - Externa lenin Clobetasol Propionate 0.05 % apply externally Ointment 04-24 00:00: 00 10-22 00:00 :00 No [id number] Apply sparingly BID to rash of body Sat-Sat PRN. Not for use on face, armpits or groin. Mamie phelps Metoprolol Tartrate 50 MG oral Tablet 04-16 00:00: 00 Yes [id number] 50mg Take 1 tablet (50 mg total) by mouth 2 times daily Mamie phelps Metoprolol Tartrate 50 MG oral Tablet 04-16 00:00: 00 Yes [id number] 50mg Take 1 tablet (50 mg total) by mouth 2 times daily Mamie phelps Metoprolol Tartrate 50 MG oral Tablet 04-16 00:00: 00 Yes [id number] 50mg Take 1 tablet (50 mg total) by mouth 2 times daily Mamie phelps Metoprolol Tartrate 50 MG oral Tablet 04-16 00:00: 00 Yes [id number] 50mg Take 1 tablet (50 mg total) by mouth 2 times daily Mamie phelps Metoprolol Tartrate 50 MG oral Tablet 04-16 00:00: 00 Yes [id number] 50mg Take 1 tablet (50 mg total) by mouth 2 times daily Mamie phelps Metoprolol Tartrate 50 MG oral Tablet 04-16 00:00: 00 07-30 00:00 :00 No [id number] 50mg Take 1 tablet (50 mg total) by mouth 2 times daily Mamie phelps TAKE 1 TABLET BY MOUTH EVERY DAY 2021-04 00:00: 00 No Atorvastati n Calcium 20 MG oral Tablet 2021-04 00:00: 00 Yes 20mg Take 1 tablet (20 mg total) by mouth daily Mamie phelps Metformin HCl 500 MG oral Tablet 2021-04 00:00: 00 Yes 500mg Take 1 tablet (500 mg total) by mouth daily Mamie phelps Atorvastati n Calcium 20 MG oral Tablet 2021-04 00:00: 00 Yes 20mg Take 1 tablet (20 mg total) by mouth daily Mamie phelps Metformin HCl 500 MG oral Tablet 2021-04 00:00: 00 Yes 500mg Take 1 tablet (500 mg total) by mouth daily Mamie phelps Atorvastati n Calcium 20 MG oral Tablet 2021-04 00:00: 00 Yes 20mg Take 20 mg by mouth daily Mamie phelps Metformin HCl 500 MG oral Tablet 2021-04 00:00: 00 Yes 1{tbl} Take 1 tablet by mouth daily Mamie phelps Metformin HCl 500 MG oral Tablet 2021-04 00:00: 00 Yes 500mg Take 1 tablet (500 mg total) by mouth daily Mamie phelps Atorvastati n Calcium 20 MG oral Tablet 2021-04 00:00: 00 Yes 20mg Take 20 mg by mouth daily Mamie phelps Metformin HCl 500 MG oral Tablet 2021-04 00:00: 00 Yes 1{tbl} Take 1 tablet by mouth daily Mamie phelps Atorvastati n Calcium 20 MG oral Tablet 2021-04 00:00: 00 Yes 20mg Take 20 mg by mouth daily Mamie phelps Metformin HCl 500 MG oral Tablet 2021-04 00:00: 00 Yes 1{tbl} Take 1 tablet by mouth daily Mamie phelps Atorvastati n Calcium 20 MG oral Tablet 2021-04 00:00: 00 Yes 20mg Take 20 mg by mouth daily Mamie phelps Metformin HCl 500 MG oral Tablet 2021-04 00:00: 00 Yes 1{tbl} Take 1 tablet by mouth daily Mamie phelps Atorvastati n Calcium 20 MG oral Tablet 2021-04 00:00: 00 08-29 00:00 :00 No 20mg Take 1 tablet (20 mg total) by mouth daily Mamie phelps Metoprolol Tartrate 50 MG oral Tablet 2021-04 00:00: 00 04-16 00:00 :00 No 50mg Take 50 mg by mouth 2 times daily Mamie phelps TAKE BY MOUTH 2 CAPSULES EVERY MORNING AND 2 CAPSULES AT BEDTIME 2021-04 0-13 00:00: 00 No TAKE BY MOUTH 2 CAPSULES EVERY MORNING AND 2 CAPSULES AT BEDTIME 2021-04 0-13 00:00: 00 No TAKE BY MOUTH 2 CAPSULES EVERY MORNING AND 2 CAPSULES AT BEDTIME 8 00:00: 00 No 100 TAKE BY MOUTH 2 CAPSULES EVERY MORNING AND 2 CAPSULES AT BEDTIME 12-01 00:00: 00 No 100 TAKE 1 TABLET DAILY. 8 00:00: 00 No 20 TAKE 1 TABLET DAILY. 8 00:00: 00 No 50 TAKE 1 TABLET DAILY. 8 00:00: 00 No 20 TAKE 1 TABLET DAILY. 11-06 00:00: 00 No 50 TAKE 1 TABLET DAILY. 11-05 00:00: 00 No 500 TAKE 1 TABLET DAILY. 11-05 00:00: 00 No 500 TAKE 1 TABLET DAILY. 11-04 00:00: 00 No 500 TAKE 1 TABLET DAILY. 11-04 00:00: 00 No 500 TAKE 1 TABLET DAILY. 11-03 00:00: 00 No 20 TAKE 1 TABLET DAILY. 11-03 00:00: 00 No 500 TAKE 1 TABLET DAILY. 11-03 00:00: 00 No 20 TAKE 1 TABLET DAILY. 11-03 00:00: 00 No 500 metoprolol tartrate 50 mg tablet 6 00:00: 00 No 1mg metoprolol tartrate 50 mg tablet 616 00:00: 00 No 1mg metoprolol tartrate 50 mg tablet 4- 00:00: 00 No 1mg metoprolol tartrate 50 mg tablet 07-14 00:00: 00 No 1mg Dose Unknown 2- 00:00: 00 No Dose Unknown 2 00:00: 00 No Humira(CF) 40 mg/0.4 mL subcutaneou s syringe kit 2-03 00:00: 00 No 1mg/0.4 mL Humira(CF) 40 mg/0.4 mL subcutaneou s syringe kit 05-11 00:00: 00 No 1mg/0.4 mL metoprolol tartrate 50 mg tablet 05-11 00:00: 00 No 1mg metoprolol tartrate 50 mg tablet 05-11 00:00: 00 No 1mg cyclosporin e 100 mg capsule 05-11 00:00: 00 No 1mg cyclosporin e 100 mg capsule 05-11 00:00: 00 No 1mg Humira(CF) 40 mg/0.4 mL subcutaneou s syringe kit 05-11 00:00: 00 No 1mg/0.4 mL Humira(CF) 40 mg/0.4 mL subcutaneou s syringe kit 05-11 00:00: 00 No 1mg/0.4 mL metoprolol tartrate 50 mg tablet 05-11 00:00: 00 No 1mg metoprolol tartrate 50 mg tablet 05-11 00:00: 00 No 1mg cyclosporin e 100 mg capsule 05-11 00:00: 00 No 1mg cyclosporin e 100 mg capsule 05-11 00:00: 00 No 1mg Adalimumab (Humira) 40 MG/0.4ML subcutaneou s Prefilled Syringe Kit (Citrate-fr ee) 05-11 00:00: 00 Yes Mamie Seybold - Externa l Adalimumab (Humira) 40 MG/0.4ML subcutaneou s Prefilled Syringe Kit (Citrate-fr ee) 05-11 00:00: 00 04-24 00:00 :00 No Mamie Seybold - Externa l Immunizations Ordered Immunization Name Filled Immunization Name Date Status Comments Source Shingles IM (Shingrix) Unknown Completed Mamie Seybold - External Shingles IM (Shingrix) Unknown Completed Mamie Seybold - External Shingles IM (Shingrix) Unknown Completed Mamie Seybold - External Shingles IM (Shingrix) Unknown Completed Mamie Seybold - External Shingles IM (Shingrix) Unknown Completed Mamie Seybold - External Shingles IM (Shingrix) Unknown Completed Mamie Joynerybold - External Vital Signs Vital Name Observation Time Observation Value Comments S ource Systolic blood pressure 2023-02-21 21:55:00 130 mm[Hg] Mamie Capellano ld - External Diastolic blood pressure 2023-02-21 21:55:00 60 mm[Hg] Mamie Joynerybo ld - External Heart rate 2023-02-21 21:55:00 64 /min Kelse y Seybold - External Body temperature 2023-02-21 21:55:00 37.17 Ana M Mamie Seybold - External Body height 2023-02-21 21:55:00 167.6 cm Bev ey Seybold - External Body weight 2023-02-21 21:55:00 105.235 kg Bev ey Seybold - External BMI 2023-02-21 21:55:00 37.45 kg/m2 Bev ey Seybold - External Oxygen saturation in Arterial blood by Pulse oximetry 2023-02-21 21:55:00 97 /min Mamie Capellano ld - External Body weight 2022-10-22 20:27:00 112.038 kg Bev ey Seybold - External BMI 2022-10-22 20:27:00 39.87 kg/m2 Bev ey Seybold - External Systolic blood pressure 2022-08-29 21:36:00 137 mm[Hg] Mamie Joynerybo ld - External Diastolic blood pressure 2022-08-29 21:36:00 80 mm[Hg] Mamie Joynerybo ld - External Heart rate 2022-08-29 21:20:00 90 /min Mikise y Seybold - External Body temperature 2022-08-29 21:20:00 36.61 Ana M Mamie Seybold - External Respiratory rate 2022-08-29 21:20:00 19 /min Mamie Seybold - External Body height 2022-08-29 21:20:00 170.2 cm Bev ey Seybold - External Body weight 2022-08-29 21:20:00 114.306 kg Bev ey Seybold - External BMI 2022-08-29 21:20:00 39.47 kg/m2 Bev ey Seybold - External Oxygen saturation in Arterial blood by Pulse oximetry 2022-08-29 21:20:00 97 /min Mamie Seybo ld - External Systolic blood pressure 2022-07-30 20:33:00 138 mm[Hg] Mamie Seybo ld - External Diastolic blood pressure 2022-07-30 20:33:00 82 mm[Hg] Mamie Seybo ld - External Heart rate 2022-07-30 20:33:00 123 /min Kelse y Seybold - External Body temperature 2022-07-30 20:33:00 36.61 Ana M Mamie Seybold - External Respiratory rate 2022-07-30 20:33:00 14 /min Mamie Seybold - External Body height 2022-07-30 20:33:00 170.2 cm Bev ey Seybold - External Body weight 2022-07-30 20:33:00 115.214 kg Bev ey Seybold - External BMI 2022-07-30 20:33:00 39.78 kg/m2 Bev ey Seybold - External Oxygen saturation in Arterial blood by Pulse oximetry 2022-07-30 20:33:00 99 /min Mamie Joynerybo ld - External Systolic blood pressure 2022-07-16 15:41:00 126 mm[Hg] Mamie Seybo ld - External Diastolic blood pressure 2022-07-16 15:41:00 80 mm[Hg] Mamie Seybo ld - External Heart rate 2022-07-16 15:41:00 84 /min Mikise y Seybold - External Body temperature 2022-07-16 15:41:00 36.89 Ana M Mamie Seybold - External Respiratory rate 2022-07-16 15:41:00 15 /min Mamie Seybold - External Body height 2022-07-16 15:41:00 170.2 cm Bev ey Seybold - External Body weight 2022-07-16 15:41:00 113.853 kg Bev ey Seybold - External BMI 2022-07-16 15:41:00 39.31 kg/m2 Bev ey Seybold - External Systolic blood pressure 2022-06-05 16:46:00 122 mm[Hg] Mamie Seybo ld - External Diastolic blood pressure 2022-06-05 16:46:00 78 mm[Hg] Mamie Capellano ld - External Heart rate 2022-06-05 16:46:00 78 /min Kelse y Seybold - External Body temperature 2022-06-05 16:46:00 36.72 Ana M Mamie Seybold - External Respiratory rate 2022-06-05 16:46:00 18 /min Mamie Joynerybold - External Body height 2022-06-05 16:46:00 170.2 cm Bev ey Seybold - External Body weight 2022-06-05 16:46:00 112.583 kg Bev ey Seybold - External BMI 2022-06-05 16:46:00 38.87 kg/m2 Bev ey Seybold - External Body weight 2022-04-24 16:28:00 111.676 kg Bev ey Seybold - External BMI 2022-04-24 16:28:00 38.56 kg/m2 Bev ey Seybold - External Systolic blood pressure 2022-04-16 22:40:00 139 mm[Hg] Mamie Seybo ld - External Diastolic blood pressure 2022-04-16 22:40:00 91 mm[Hg] Mamie Joynerybo ld - External Heart rate 2022-04-16 22:40:00 86 /min Mikise y Seybold - External Body temperature 2022-04-16 22:40:00 36.78 Ana M Mamie Joynerybold - External Respiratory rate 2022-04-16 22:40:00 14 /min Mamie Joynerybold - External Body height 2022-04-16 22:40:00 170.2 cm Bev ey Seybold - External Body weight 2022-04-16 22:40:00 114.76 kg Bev ey Seybold - External BMI 2022-04-16 22:40:00 39.63 kg/m2 Bev ey Seybold - External Oxygen saturation in Arterial blood by Pulse oximetry 2022-04-16 22:40:00 99 /min Mamie Capellano ld - External BP Systolic 2022-02-19 16:12:00 161 mm[Hg] BP Diastolic 2022-02-19 16:12:00 98 mm[Hg] Weight Measured 2022-02-19 16:12:00 250.80 pounds Height Measured 2022-02-19 16:12:00 65.39 inches Body Temperature 2022-02-19 16:12:00 98.20 degrees Heart Rate 2022-02-19 16:12:00 92.00 /min Respiratory Rate 2022-02-19 16:12:00 19.00 /min BP Systolic 2021-11-03 09:13:00 151 mm[Hg] BP Diastolic 2021-11-03 09:13:00 79 mm[Hg] Weight Measured 2021-11-03 09:13:00 237.00 pounds Height Measured 2021-11-03 09:13:00 65.39 inches Body Temperature 2021-11-03 09:13:00 98.20 degrees Heart Rate 2021-11-03 09:13:00 75.00 /min Respiratory Rate 2021-11-03 09:13:00 18.00 /min BP Systolic 2021-05-11 08:38:00 125 mm[Hg] BP Diastolic 2021-05-11 08:38:00 85 mm[Hg] Weight Measured 2021-05-11 08:38:00 234.20 pounds Height Measured 2021-05-11 08:38:00 65.39 inches Body Temperature 2021-05-11 08:38:00 97.40 degrees Heart Rate 2021-05-11 08:38:00 71.00 /min Respiratory Rate 2021-05-11 08:38:00 Plan of Care Planned Activity Planned Date Details Comments Source Goal Plan of Care Note [code = 54901-8] Goal Plan of Care Note [code = 50355-1] Goal Plan of Care Note [code = 94637-8] Goal Plan of Care Note [code = 45180-9] Goal Plan of Care Note [code = 66616-3] Goal Plan of Care Note [code = 90100-6] Goal Plan of Care Note [code = 49373-0] Goal Plan of Care Note [code = 25914-1] Goal Plan of Care Note [code = 13182-2] Goal Plan of Care Note [code = 98845-3] Goal Plan of Care Note [code = 52007-4] Goal Plan of Care Note [code = 42786-6] Goal Plan of Care Note [code = 52416-9] Goal Plan of Care Note [code = 86044-3] Goal Plan of Care Note [code = 65295-9] Goal Plan of Care Note [code = 08160-2] Goal Plan of Care Note [code = 46014-8] Goal Plan of Care Note [code = 63809-3] Goal Plan of Care Note [code = 76505-0] Goal Plan of Care Note [code = 27604-1] Goal Plan of Care Note [code = 75097-0] Goal Plan of Care Note [code = 88090-1] Goal Plan of Care Note [code = 94963-4] Goal Plan of Care Note [code = 35119-0] Goal Plan of Care Note [code = 65379-0] Goal Plan of Care Note [code = 32424-4] Goal Plan of Care Note [code = 89962-5] Goal Plan of Care Note [code = 31087-0] Goal Plan of Care Note [code = 75078-2] Goal Plan of Care Note [code = 19239-6] Encounters Start Date/Time End Date/Time Encounter Type Admission Type Attending [facility] Department Encounter ID Source 2023-10-18 10:00:00 2023-10-18 10:00:00 Outpatient CRISSY OWENS [id number] [facility] 2023-08-26 09:30:00 2023-08-26 09:30:00 Outpatient JAYME SANABRIA [id number] [facility] 2023-08-23 16:15:00 2023-08-23 16:15:00 Outpatient JAYME SANABRIA [id number] [facility] 2023-08-23 08:00:00 2023-08-23 08:00:00 Outpatient JAYME SANABRIA [id number] Mamie Lora 2023-06-24 00:00:00 2023-06-24 00:00:00 Outpatient JAYME SANABRIA [id number] Mamie Lora 2023-06-19 00:00:00 2023-06-19 00:00:00 [facility]patient [facility] [id number] [facility]-18 00:00:00 2023-06-18 00:00:00 Outpatient PREZASJAYME MAMIE [id number] Mamie Seybold 2023-06-17 13:00:00 2023-06-17 13:00:00 Outpatient KEVEN MENDOSA MAMIE MAMIE [id number] Mamie Seybold 2023-06-17 00:00:00 2023-06-17 00:00:00 Outpatient PREZASJAYME MAMIE MAMIE [id number] Mamie Seybold 2023-06-14 10:00:00 2023-06-14 10:00:00 Outpatient KIKI MAMIE BOOTH [id number] Mamie Seybold 2023-06-14 09:30:00 2023-06-14 09:30:00 Outpatient OWENSRADHAWilder BOOTH [id number] Mamie Seybold 2023-05-30 00:00:00 2023-05-30 00:00:00 Outpatient LEAH RHETT MAMIE BOOTH [id number] Mamie Seybold 2023-05-18 00:00:00 2023-05-18 00:00:00 Outpatient PREZAS, JAYME MAMIE BOOTH [id number] Mamie Seybold 2023-04-26 15:45:00 2023-04-26 15:45:00 Outpatient OWENS, CRISSYWilder BOOTH [id number] Mamie Seybold 2023-04-23 00:00:00 2023-04-23 00:00:00 Outpatient PREZAS, JAYME MAMIE BOOTH [id number] Mamie Seybold 2023-04-17 00:00:00 2023-04-17 00:00:00 Outpatient OWENS, CRISSY BOOTH [id number] Mamie Seybold 2023-03-25 00:00:00 2023-03-25 00:00:00 Outpatient PREZAS, JAYME MAMIE BOOTH [id number] Mamie Seybold 2023-03-05 00:00:00 2023-03-05 00:00:00 Outpatient PREZAS, JAYMEHAM BOOTH [id number] Mamie Seybold 2023-02-24 00:00:2023-02-24 00:00:00 Outpatient PREZAS, JAYME BOOTH MAMIE [id number] Mamie Seybold 2023-02-21 16:30:00 2023-02-21 16:30:00 Outpatient PREZAS, JAYME BOOTH MAMIE [id number] Mamie Seybold 2023-02-21 00:00:00 2023-02-21 00:00:00 Outpatient PREZAS, JAYME BOOTH MAMIE [id number] Mamie Seybold 2023-02-20 08:50:00 2023-02-20 08:50:00 Outpatient ROSETTA BOOTH MAMIE [id number] Mamie Seybold 2023-02-20 00:00:00 2023-02-20 00:00:00 Outpatient PREZAS, JAYME BOOTH MAMIE [id number] [facility] 2023-01-28 00:00:00 2023-01-28 00:00:00 Outpatient OWENS, CRISSY MAMIE BOOTH [id number] [facility] 2023-01-19 00:00:00 2023-01-19 00:00:00 Outpatient PREZAS, JAYME BOOTH MAMIE [id number] [facility] 2023-01-16 00:00:00 2023-01-16 00:00:00 Outpatient OWENS, CRISSY MAMIE MAMIE [id number] Mamie Seybold 2023-01-09 00:00:00 2023-01-09 00:00:00 Outpatient PREZAS, JAYME MAMIE MAMIE [id number] Mamie Seybold 2022-12-31 16:15:00 2022-12-31 16:15:00 Outpatient PREZAS, JAYME MAMIE BOOTH [id number] Mamie Seybold 2022-12-31 00:00:00 2022-12-31 00:00:00 Outpatient PREZAS, JAYME MAMIE BOOTH [id number] Mamie Seybold 2022-12-31 00:00:00 2022-12-31 00:00:00 Outpatient PREZAS, JAYME MAMIE BOOTH [id number] Mamie Seybold 2022-12-27 00:00:00 2022-12-27 00:00:00 Outpatient CRISSY OWENS MAMIE BOOTH [id number] Mamie Seybold 2022-12-26 00:00:00 2022-12-26 00:00:00 Outpatient CRISSY OWENS MAMIE BOOTH [id number] Mamie Seybold 2022-12-25 15:30:00 2022-12-25 15:30:00 Outpatient RADHA OWENSWilder BOOTH [id number] Mamie Seybold 2022-12-10 00:00:00 2022-12-10 00:00:00 Outpatient PREZAJAYME Kaminski MAMIE BOOTH [id number] Mamie Seybold 2022-10-30 00:00:00 2022-10-30 00:00:00 Outpatient PREZAGordy JAYME BOOTH [id number] [facility] 2022-10-29 00:00:00 2022-10-29 00:00:00 Outpatient PREZAS JAYME BOOTH [id number] [facility] 2022-10-22 15:45:00 2022-10-22 15:45:00 Outpatient FLAQUITOSHARLENEHEMALATHA MAMIE BOOTH [id number] Mamie Seybold 2022-10-12 00:00:00 2022-10-12 00:00:00 Outpatient RHETT LYNN [id number] Mamie Seybold 2022-09-21 15:15:00 2022-09-21 15:15:00 Outpatient TRELeonard7 MAMIE BOOTH [id number] Mamie Seybold 2022-09-21 14:00:00 2022-09-21 14:00:00 Outpatient MAMIE BOOTH [id number] Mamie Seybold 2022-09-12 00:00:00 2022-09-12 00:00:00 Outpatient PREZAGordy JAYME BOOTH [id number] Mamie Seybold 2022-09-12 00:00:00 2022-09-12 00:00:00 Outpatient PREZAGordy JAYME BOOTH [id number] Mamie Seybold 2022-09-11 00:00:00 2022-09-11 00:00:00 Outpatient GUNNAR MOSELEY [id number] Mam[facility] 2022-09-11 00:00:00 2022-09-11 00:00:00 Outpatient GUNNAR MOSELEY MAMIE BOOTH [id number] [facility] 2022-09-05 09:40:00 2022-09-05 09:40:00 Outpatient MATT-JAMIA ROLON MAMIE BOOTH [id number] [facility]ie Seybold 2022-09-05 09:15:00 2022-09-05 09:15:00 Outpatient LETTY Rice MAMIE BOOTH [id number] Mamie Seybold 2022-09-05 08:50:00 2022-09-05 08:50:00 Outpatient LEAHRHETT MAMIE BOOTH [id number] Mamie Seybold 2022-08-29 16:15:00 2022-08-29 16:15:00 Outpatient PREJAYME QUIROGA [id number] [facility] 2022-08-28 15:00:00 2022-08-28 15:00:00 Outpatient PREZAMARIO KaminskiHAM BOOTH [id number] [facility] 2022-08-22 10:00:00 2022-08-22 10:00:00 Outpatient FLAQUITO, HEMALATHANICOLAS BOOTH [id number] [facility] 2022-08-21 13:00:00 2022-08-21 13:00:00 Outpatient MAMIE BOOTH [id number] Mamie Seybold 2022-08-21 00:00:00 2022-08-21 00:00:00 Outpatient JAYME SANABRIA MAMIE BOOTH [id number] [facility] Seybold 2022-08-10 00:00:00 2022-08-10 00:00:00 Outpatient FLAQUITOSHARLENEHEMALATHA MAMIE BOOTH [id number] Mamie Seybold 2022-07-31 00:00:00 2022-07-31 00:00:00 Outpatient PREZAMARIO KaminskiHAM BOOTH [id number] Mamie Seybold 2022-07-30 16:20:00 2022-07-30 16:20:00 Outpatient LABNilda BOOTH [id number] Mamie Seybold 2022-07-30 15:15:00 2022-07-30 15:15:00 Outpatient PREZAS, JAYME MAMIE BOOTH [id number] [facility]ie Seybold 2022-07-24 00:00:00 2022-07-24 00:00:00 Outpatient PREZAS, JAYME MAMIE BOOTH [id number] [facility]ie Seybold 2022-07-24 00:00:00 2022-07-24 00:00:00 Outpatient CONFERENCE, [facility] MAMIE BOOTH [id number] [facility] 2022-07-20 10:00:00 2022-07-20 10:00:00 Outpatient MAMIE BOOTH [id number] [facility] 2022-07-20 00:00:00 2022-07-20 00:00:00 Outpatient PREZAS, JAYME MAMIE BOOTH [id number] Mamie Seybold 2022-07-16 13:55:00 2022-07-16 13:55:00 Outpatient LAB90 MAMIE BOOTH [id number] [facility] 2022-07-16 12:40:00 2022-07-16 12:40:00 Outpatient MAMIE BOOTH [id number] Mamie Seybold 2022-07-16 11:00:00 2022-07-16 11:00:00 Outpatient PREZAS, JAYME MAMIE BOOTH [id number] [facility]ie Seybold 2022-07-16 00:00:00 2022-07-16 00:00:00 Outpatient PREZAS, JAYME MAMIE BOOTH [id number] [facility]ie Seybold 2022-07-16 00:00:00 2022-07-16 00:00:00 Outpatient PREZAS, JAYME BOOTH [id number] [facility] Seybold 2022-07-13 00:00:00 2022-07-13 00:00:00 Outpatient PREZAS, JAYME BOOTH [id number] [facility]ie Seybold 2022-06-25 16:30:00 2022-06-25 16:30:00 Outpatient INJ, MARCELINE MAMIE BOOTH [id number] Mamie Seybold 2022-06-15 08:50:00 2022-06-15 08:50:00 Outpatient LAB53 MAMIE BOOTH [id number] Mamie Seybold 2022-06-15 00:00:00 2022-06-15 00:00:00 Outpatient LORELEIGUNNAR MAMIE BOOTH [id number] Mamie Seybold 2022-06-05 11:15:00 2022-06-05 11:15:00 Outpatient HOVAZQUEZ MAMIE BOOTH [id number] [facility] Seybold 2022-05-29 00:00:00 2022-05-29 00:00:00 Outpatient LORELEI, GUNNAR BOOTH [id number] [facility] 2022-05-28 16:45:00 2022-05-28 16:45:00 Outpatient INJ, ALPA MAMIE BOOTH [id number] [facility] 2022-05-28 08:50:00 2022-05-28 08:50:00 Outpatient LAB90 MAMIE BOOTH [id number] [facility] 2022-05-25 00:00:00 2022-05-25 00:00:00 Outpatient LORELEI, GUNNAR BOOTH [id number] [facility] 2022-05-24 00:00:00 2022-05-24 00:00:00 Outpatient HEMALATHA HUDDLESTON [id number] [facility] 2022-05-22 10:45:00 2022-05-22 10:45:00 Outpatient GUNNAR MOSELEY [id number] [facility] 2022-05-18 00:00:00 2022-05-18 00:00:00 Outpatient GUNNAR MOSELEY [id number] Mamie Seybold 2022-05-14 16:15:00 2022-05-14 16:15:00 Outpatient GUNNAR MOSELEY [id number] Mamie Seybold 2022-05-10 00:00:00 2022-05-10 00:00:00 Outpatient MD MAMIE JUNIOR [id number] Mam[facility] Seybold 2022-05-01 16:00:00 2022-05-01 16:00:00 Outpatient GUNNAR MOSELEY [facility] [id number] [facility]-01 00:00:00 2022-05-01 00:00:00 Outpatient SANDRA MARIE MAMIE BOOTH [id number] [facility] 2022-05-01 00:00:00 2022-05-01 00:00:00 Outpatient GUNNAR MOSELEY MAMIE MAMIE [id number] [facility] 2022-04-25 00:00:00 2022-04-25 00:00:00 Outpatient HEMALATHA HUDDLESTON MAMIE MAMIE [id number] [facility] 2022-04-24 11:45:00 2022-04-24 11:45:00 Outpatient KIKI MAMIE MAMIE [id number] [facility] 2022-04-24 11:15:00 2022-04-24 11:15:00 Outpatient HEMALATHA HUDDLESTON MAMIE BOOTH [id number] [facility] 2022-04-23 00:00:00 2022-04-23 00:00:00 Outpatient GUNNAR MOSELEY MAMIE MAMIE [id number] [facility] 2022-04-20 09:50:00 2022-04-20 09:50:00 Outpatient ROSETTA MAMIE BOOTH [id number] [facility] 2022-04-20 00:00:00 2022-04-20 00:00:00 Outpatient MAMIE BOOTH [id number] [facility] 2022-04-20 00:00:00 2022-04-20 00:00:00 Outpatient GUNNAR MOSELEY MAMIE BOOTH [id number] [facility] 2022-04-16 16:15:00 2022-04-16 16:15:00 Outpatient GUNNAR MOSELEY MAMIE BOOTH [id number] [facility] 2022-04-10 00:00:00 2022-04-10 00:00:00 Outpatient Visit [id number] 2022-02-19 16:05:51 2022-02-19 16:05:51 Outpatient [facility] [id number] Marcel Avila 2022-02-19 00:00:00 2022-02-19 00:00:00 Outpatient Visit [id number] Results Test Description Test Time Test Comments Results Result Co mments Source COMPREHENSIVE METABOLIC [id number] 00:00:00* Test Item Value Reference Range Interpretation Comme nts GLUCOSE (test code = 2217) 98 MG/DL BUN (test code = 2208) 15 MG/DL CREATININE (test code = 2214) 1.16 MG/DL eGFR (2020 CKD-EPI) (test co de = 18046) 74 ML/MIN/1.73 CALC BUN/CREAT (test code = 2235) 13 RATIO SODIUM (test code = 2231) 142 MEQ/L POTASSIUM (test code = 2228) 4.2 MEQ/L CHLORIDE (test code = 2215) 105 MEQ/L CARBON DIOXIDE (test code = 2206) 27 MEQ/L CALCIUM (test code = 2209) 9.4 MG/DL PROTEIN, TOTAL (test code = 2229) 6.8 G/DL ALBUMIN (test code = 2201) 4.4 G/DL CALC GLOBULIN (test code = 2240) 2.4 G/DL CALC A/G RATIO (test code = 2234) 1.8 RATIO BILIRUBIN, TOTAL (test code = 2207) 0.2 MG/DL ALKALINE PHOSPHATASE (test code = 2204) 61 U/L AST (test code = 2218) 26 U/L ALT (test code = 2219) 54 U/L VITAMIN D, 25 [id number] 04:32:23* Test Item Value Reference Range Interpretation Comme nts VITAMIN D, 25 OH (test code = 4958) 32 NG/ML SEE BELOW NOTE: 25-HYDR OXYVITAMIN D ASSAY INCLUDES 25-HYDROXYVITAMIN D2 AND D3. METHODOLOGY IS CHEMILUMINESCENT IMMUNOASSAY. INTERPRETIVE RANGES PEDIATRIC (<17 YEARS) . . . . . . . . . . . NG/ML 20-100ADULT: INSUFFICIENT . . . . . . . . . . . . . . NG/ML <20 SUBOPTIMAL . . . . . . . . . . . . . . . NG/ML 20-29 OPTIMAL . . . . . . . . . . . . . . . . . NG/ML 30-100 UNLESS OTHERWISE INDICATED, ALL TESTING PERFORMED [email or web address] [employer] [address] [place] [id number] CARTOGRAPHY PROFESSOR: DARVIN DALEY M.D. [facility] NUMBER [id number] [place] [id number] LIPID [id number] 04:29:27* Test Item Value Reference Range Interpretation Comme nts CHOLESTEROL (test code = 2210) 225 MG/DL <200 H TRIGLYCERIDES (test code = 2232) 161 MG/DL <150 H HDL CHOLESTEROL (test code = 2220) 35 MG/DL >39 L CALC LDL CHOL (test code = 2237) 159 MG/DL <100 H NOTE: CALCULATED LDL IS BASED ON JOSE-MONTANEZ METHOD WHICHINCLUDES ADJUSTABLE TRIGLYCERIDE:VLDL CHOLESTEROL RATIO.THIS FACTOR VARIES BY MEASURED TRIGLYCERIDE AND NON-HDLCHOLESTEROL CONCENTRATIONS WITH INCREASED CALCULATED LDL SEENIN HIGHER TRIGLYCERIDE OR LOWER NON-HDL SPECIMENS. FOR MOREINFORMATION, SEE CLIENT ANNOUNCEMENT AT [email or web address] RISK RATIO LDL/HDL (test code = 2238) 4.54 RATIO <3.55 H COMPREHENSIVE METABOLIC [id number] 04:29:27* Test Item Value Reference Range Interpretation Comme nts GLUCOSE (test code = 2217) 107 MG/DL 70-99 H BUN (test code = 2208) 13 MG/DL 6-20 CREATININE (test code = 2214) 1.19 MG/DL 0.80-1.40 eGFR (2020 CKD-EPI) (test code = 18636) 72 ML/MIN/1.73 >60 CALC BUN/CREAT (test code = 2235) 11 RATIO 6-28 SODIUM (test code = 2231) 140 MEQ/L 133-146 POTASSIUM (test code = 2228) 4.4 MEQ/L 3.5-5.4 CHLORIDE (test code = 2215) 102 MEQ/L 95-107 CARBON DIOXIDE (test code = 2206) 27 MEQ/L 19-31 CALCIUM (test code = 2209) 9.4 MG/DL 8.5-10.5 PROTEIN, TOTAL (test code = 2229) 7.1 G/DL 6.1-8.3 ALBUMIN (test code = 2201) 4.4 G/DL 3.5-5.2 CALC GLOBULIN (test code = 2240) 2.7 G/DL 1.9-3.7 CALC A/G RATIO (test code = 2234) 1.6 RATIO 1.0-2.6 BILIRUBIN, TOTAL (test code = 2207) 0.4 MG/DL See_Comment [Automated me ssage] The system which generated this result transmitted reference range: <=1.2. The reference range was not used to interpret this result as normal/abnormal. ALKALINE PHOSPHATASE (test code = 2204) 59 U/L 40-123 AST (test code = 2218) 29 U/L 9-50 ALT (test code = 2219) 54 U/L 5-50 H HEMOGLOBIN [id number] 03:19:23* Test Item Value Reference Range Interpretation Comme nts HEMOGLOBIN A1c (test code = 52394) 6.8 % 4.2-5.6 H [employer] GUIDELINES FOR HGB A1C: PREDIABETES/INCREASED RISK . . . . . . . 5.7-6.4% DIAGNOSIS OF DIABETES . . . . . . . . . >=6.5% WITH CONFIRMATION OR APPROPRIATE SYMPTOMS NOTE: ASSAY MAY BE AFFECTED BY HEMOGLOBINOPATHIES (SICKLE CELL ANEMIA, S-C DISEASE, OTHERS) OR ARTIFICIALLY LOWERED BY DECREASED RED CELL SURVIVAL (HEMOLYTIC ANEMIAS, BLOOD LOSS, ETC.). CONSIDER ALTERNATE TESTING OR LABORATORY CONSULTATION. LIPID PANEL [ADDED]2021-11-04 00:00:00* Test Item Value Reference Range Interpretation Comme nts CHOLESTEROL (test code = 2210) 225 MG/DL TRIGLYCERIDES (test code = 2232) 161 MG/DL HDL CHOLESTEROL (test code = 2220) 35 MG/DL CALC LDL CHOL (test code = 2237) 159 MG/DL RISK RATIO LDL/HDL (test cod e = 2238) 4.54 RATIO HEMOGLOBIN A1c [ADDED]2021-11-04 00:00:00* Test Item Value Reference Range Interpretation Comme nts HEMOGLOBIN A1c (test code = 07278) 6.8 % HEMOGLOBIN A1c [ADDED]2021-11-04 00:00:00* Test Item Value Reference Range Interpretation Comme nts HEMOGLOBIN A1c (test code = 87475) 6.8 % HEMOGLOBIN A1c [ADDED]2021-11-04 00:00:00* Test Item Value Reference Range Interpretation Comme nts HEMOGLOBIN A1c (test code = 73103) 6.8 % COMPREHENSIVE METABOLIC PANEL [ADDED]2021-11-04 00:00:00* Test Item Value Reference Range Interpretation Comme nts GLUCOSE (test code = 2217) 107 MG/DL BUN (test code = 2208) 13 MG/DL CREATININE (test code = 2214) 1.19 MG/DL eGFR (2020 CKD-EPI) (test co de = 91707) 72 ML/MIN/1.73 CALC BUN/CREAT (test code = 2235) 11 RATIO SODIUM (test code = 2231) 140 MEQ/L POTASSIUM (test code = 2228) 4.4 MEQ/L CHLORIDE (test code = 2215) 102 MEQ/L CARBON DIOXIDE (test code = 2206) 27 MEQ/L CALCIUM (test code = 2209) 9.4 MG/DL PROTEIN, TOTAL (test code = 2229) 7.1 G/DL ALBUMIN (test code = 2201) 4.4 G/DL CALC GLOBULIN (test code = 2240) 2.7 G/DL CALC A/G RATIO (test code = 2234) 1.6 RATIO BILIRUBIN, TOTAL (test code = 2207) 0.4 MG/DL ALKALINE PHOSPHATASE (test code = 2204) 59 U/L AST (test code = 2218) 29 U/L ALT (test code = 2219) 54 U/L COMPREHENSIVE METABOLIC PANEL [ADDED]2021-11-04 00:00:00* Test Item Value Reference Range Interpretation Comme nts GLUCOSE (test code = 2217) 107 MG/DL BUN (test code = 2208) 13 MG/DL CREATININE (test code = 2214) 1.19 MG/DL eGFR (2020 CKD-EPI) (test co de = 94878) 72 ML/MIN/1.73 CALC BUN/CREAT (test code = 2235) 11 RATIO SODIUM (test code = 2231) 140 MEQ/L POTASSIUM (test code = 2228) 4.4 MEQ/L CHLORIDE (test code = 2215) 102 MEQ/L CARBON DIOXIDE (test code = 2206) 27 MEQ/L CALCIUM (test code = 2209) 9.4 MG/DL PROTEIN, TOTAL (test code = 2229) 7.1 G/DL ALBUMIN (test code = 2201) 4.4 G/DL CALC GLOBULIN (test code = 2240) 2.7 G/DL CALC A/G RATIO (test code = 2234) 1.6 RATIO BILIRUBIN, TOTAL (test code = 2207) 0.4 MG/DL ALKALINE PHOSPHATASE (test code = 2204) 59 U/L AST (test code = 2218) 29 U/L ALT (test code = 2219) 54 U/L VITAMIN D, 25 OH [ADDED]2021-11-04 00:00:00* Test Item Value Reference Range Interpretation Comme nts VITAMIN D, 25 OH (test code = 4958) 32 NG/ML VITAMIN D, 25 OH [ADDED]2021-11-04 00:00:00* Test Item Value Reference Range Interpretation Comme nts VITAMIN D, 25 OH (test code = 4958) 32 NG/ML LIPID PANEL [ADDED]2021-11-04 00:00:00* Test Item Value Reference Range Interpretation Comme nts CHOLESTEROL (test code = 2210) 225 MG/DL TRIGLYCERIDES (test code = 2232) 161 MG/DL HDL CHOLESTEROL (test code = 2220) 35 MG/DL CALC LDL CHOL (test code = 2237) 159 MG/DL RISK RATIO LDL/HDL (test cod e = 2238) 4.54 RATIO LIPID PANEL [ADDED]2021-11-04 00:00:00* Test Item Value Reference Range Interpretation Comme nts CHOLESTEROL (test code = 2210) 225 MG/DL TRIGLYCERIDES (test code = 2232) 161 MG/DL HDL CHOLESTEROL (test code = 2220) 35 MG/DL CALC LDL CHOL (test code = 2237) 159 MG/DL RISK RATIO LDL/HDL (test cod e = 2238) 4.54 RATIO HEMOGLOBIN A1c [ADDED]2021-11-04 00:00:00* Test Item Value Reference Range Interpretation Comme nts HEMOGLOBIN A1c (test code = 96052) 6.8 % HEMOGLOBIN A1c [ADDED]2021-11-04 00:00:00* Test Item Value Reference Range Interpretation Comme nts HEMOGLOBIN A1c (test code = 57655) 6.8 % HEMOGLOBIN A1c [ADDED]2021-11-04 00:00:00* Test Item Value Reference Range Interpretation Comme nts HEMOGLOBIN A1c (test code = 25296) 6.8 % COMPREHENSIVE METABOLIC PANEL [ADDED]2021-11-04 00:00:00* Test Item Value Reference Range Interpretation Comme nts GLUCOSE (test code = 2217) 107 MG/DL BUN (test code = 2208) 13 MG/DL CREATININE (test code = 2214) 1.19 MG/DL eGFR (2020 CKD-EPI) (test co de = 21807) 72 ML/MIN/1.73 CALC BUN/CREAT (test code = 2235) 11 RATIO SODIUM (test code = 2231) 140 MEQ/L POTASSIUM (test code = 2228) 4.4 MEQ/L CHLORIDE (test code = 2215) 102 MEQ/L CARBON DIOXIDE (test code = 2206) 27 MEQ/L CALCIUM (test code = 2209) 9.4 MG/DL PROTEIN, TOTAL (test code = 2229) 7.1 G/DL ALBUMIN (test code = 2201) 4.4 G/DL CALC GLOBULIN (test code = 2240) 2.7 G/DL CALC A/G RATIO (test code = 2234) 1.6 RATIO BILIRUBIN, TOTAL (test code = 2207) 0.4 MG/DL ALKALINE PHOSPHATASE (test code = 2204) 59 U/L AST (test code = 2218) 29 U/L ALT (test code = 2219) 54 U/L COMPREHENSIVE METABOLIC PANEL [ADDED]2021-11-04 00:00:00* Test Item Value Reference Range Interpretation Comme nts GLUCOSE (test code = 2217) 107 MG/DL BUN (test code = 2208) 13 MG/DL CREATININE (test code = 2214) 1.19 MG/DL eGFR (2020 CKD-EPI) (test co de = 17565) 72 ML/MIN/1.73 CALC BUN/CREAT (test code = 2235) 11 RATIO SODIUM (test code = 2231) 140 MEQ/L POTASSIUM (test code = 2228) 4.4 MEQ/L CHLORIDE (test code = 2215) 102 MEQ/L CARBON DIOXIDE (test code = 2206) 27 MEQ/L CALCIUM (test code = 2209) 9.4 MG/DL PROTEIN, TOTAL (test code = 2229) 7.1 G/DL ALBUMIN (test code = 2201) 4.4 G/DL CALC GLOBULIN (test code = 2240) 2.7 G/DL CALC A/G RATIO (test code = 2234) 1.6 RATIO BILIRUBIN, TOTAL (test code = 2207) 0.4 MG/DL ALKALINE PHOSPHATASE (test code = 2204) 59 U/L AST (test code = 2218) 29 U/L ALT (test code = 2219) 54 U/L VITAMIN D, 25 OH [ADDED]2021-11-04 00:00:00* Test Item Value Reference Range Interpretation Comme nts VITAMIN D, 25 OH (test code = 4958) 32 NG/ML VITAMIN D, 25 OH [ADDED]2021-11-04 00:00:00* Test Item Value Reference Range Interpretation Comme nts VITAMIN D, 25 OH (test code = 4958) 32 NG/ML LIPID PANEL [ADDED]2021-11-04 00:00:00* Test Item Value Reference Range Interpretation Comme nts CHOLESTEROL (test code = 2210) 225 MG/DL TRIGLYCERIDES (test code = 2232) 161 MG/DL HDL CHOLESTEROL (test code = 2220) 35 MG/DL CALC LDL CHOL (test code = 2237) 159 MG/DL RISK RATIO LDL/HDL (test cod e = 2238) 4.54 RATIO TSH, THIRD [id number] 06:19:05* Test Item Value Reference Range Interpretation Comme [facility] TSH, THIRD GENERATION (test code = 2821) 1.870 UIU/ML 0.400-4.100 VITAMIN D, 25 [id number] 03:02:49* Test Item Value Reference Range Interpretation Comme [facility] VITAMIN D, 25 OH (test code = 4958) 22 NG/ML SEE BELOW L NOTE: 25-HYDR OXYVITAMIN D ASSAY INCLUDES 25-HYDROXYVITAMIN D2 AND D3. METHODOLOGY IS CHEMILUMINESCENT IMMUNOASSAY. INTERPRETIVE RANGES PEDIATRIC (<17 YEARS) . . . . . . . . . . . NG/ML 20-100ADULT: INSUFFICIENT . . . . . . . . . . . . . . NG/ML <20 SUBOPTIMAL . . . . . . . . . . . . . . . NG/ML 20-29 OPTIMAL . . . . . . . . . . . . . . . . . NG/ML 30-100 LIPID [id number] 02:43:40* Test Item Value Reference Range Interpretation Comme nts CHOLESTEROL (test code = 2210) 231 MG/DL <200 H TRIGLYCERIDES (test code = 2232) 167 MG/DL <150 H HDL CHOLESTEROL (test code = 2220) 38 MG/DL >39 L CALC LDL CHOL (test code = 2237) 161 MG/DL <100 H NOTE: CALCULATED LDL IS BASED ON JOSE-MONTANEZ METHOD WHICHINCLUDES ADJUSTABLE TRIGLYCERIDE:VLDL CHOLESTEROL RATIO.THIS FACTOR VARIES BY MEASURED TRIGLYCERIDE AND NON-HDLCHOLESTEROL CONCENTRATIONS WITH INCREASED CALCULATED LDL SEENIN HIGHER TRIGLYCERIDE OR LOWER NON-HDL SPECIMENS. FOR MOREINFORMATION, SEE CLIENT ANNOUNCEMENT AT [email or web address] /CalcLDL-C RISK RATIO LDL/HDL (test code = 2238) 4.24 RATIO <3.55 H COMPREHENSIVE METABOLIC [id number] 02:43:40* Test Item Value Reference Range Interpretation Comme nts GLUCOSE (test code = 2217) 111 MG/DL 70-99 H BUN (test code = 8) 15 MG/DL 6-20 CREATININE (test code = 2214) 1.06 MG/DL 0.80-1.40 eGFR (2020 CKD-EPI) (test code = 32079) 82 ML/MIN/1.73 >60 CALC BUN/CREAT (test code = 2235) 14 RATIO 6-28 SODIUM (test code = 2231) 140 MEQ/L 133-146 POTASSIUM (test code = 2228) 4.7 MEQ/L 3.5-5.4 CHLORIDE (test code = 2215) 104 MEQ/L 95-107 CARBON DIOXIDE (test code = 2206) 24 MEQ/L 19-31 CALCIUM (test code = 2209) 9.2 MG/DL 8.5-10.5 PROTEIN, TOTAL (test code = 2229) 7.0 G/DL 6.1-8.3 ALBUMIN (test code = 2201) 4.4 G/DL 3.5-5.2 CALC GLOBULIN (test code = 2240) 2.6 G/DL 1.9-3.7 CALC A/G RATIO (test code = 2234) 1.7 RATIO 1.0-2.6 BILIRUBIN, TOTAL (test code = 2207) 0.4 MG/DL See_Comment [Automated me ssage] The system which generated this result transmitted reference range: <=1.2. The reference range was not used to interpret this result as normal/abnormal. ALKALINE PHOSPHATASE (test code = 2204) 70 U/L 40-123 AST (test code = 2218) 33 U/L 9-50 ALT (test code = 2219) 59 U/L 5-50 H LIPID [id number] 00:00:00* Test Item Value Reference Range Interpretation Comme nts CHOLESTEROL (test code = 2210) 231 MG/DL TRIGLYCERIDES (test code = 2232) 167 MG/DL HDL CHOLESTEROL (test code = 2220) 38 MG/DL CALC LDL CHOL (test code = 2237) 161 MG/DL RISK RATIO LDL/HDL (test cod e = 2238) 4.24 RATIO LIPID [id number] 00:00:00* Test Item Value Reference Range Interpretation Comme nts CHOLESTEROL (test code = 2210) 231 MG/DL TRIGLYCERIDES (test code = 2232) 167 MG/DL HDL CHOLESTEROL (test code = 2220) 38 MG/DL CALC LDL CHOL (test code = 2237) 161 MG/DL RISK RATIO LDL/HDL (test cod e = 2238) 4.24 RATIO COMPREHENSIVE METABOLIC [id number] 00:00:00* Test Item Value Reference Range Interpretation Comme nts GLUCOSE (test code = 2217) 111 MG/DL BUN (test code = 2208) 15 MG/DL CREATININE (test code = 2214) 1.06 MG/DL eGFR (2020 CKD-EPI) (test co de = 97569) 82 ML/MIN/1.73 CALC BUN/CREAT (test code = 2235) 14 RATIO SODIUM (test code = 2231) 140 MEQ/L POTASSIUM (test code = 2228) 4.7 MEQ/L CHLORIDE (test code = 2215) 104 MEQ/L CARBON DIOXIDE (test code = 2206) 24 MEQ/L CALCIUM (test code = 2209) 9.2 MG/DL PROTEIN, TOTAL (test code = 2229) 7.0 G/DL ALBUMIN (test code = 2201) 4.4 G/DL CALC GLOBULIN (test code = 2240) 2.6 G/DL CALC A/G RATIO (test code = 2234) 1.7 RATIO BILIRUBIN, TOTAL (test code = 2207) 0.4 MG/DL ALKALINE PHOSPHATASE (test code = 2204) 70 U/L AST (test code = 2218) 33 U/L ALT (test code = 2219) 59 U/L COMPREHENSIVE METABOLIC [id number] 00:00:00* Test Item Value Reference Range Interpretation Comme nts GLUCOSE (test code = 2217) 111 MG/DL BUN (test code = 2208) 15 MG/DL CREATININE (test code = 2214) 1.06 MG/DL eGFR (2020 CKD-EPI) (test co de = 19967) 82 ML/MIN/1.73 CALC BUN/CREAT (test code = 2235) 14 RATIO SODIUM (test code = 2231) 140 MEQ/L POTASSIUM (test code = 2228) 4.7 MEQ/L CHLORIDE (test code = 2215) 104 MEQ/L CARBON DIOXIDE (test code = 2206) 24 MEQ/L CALCIUM (test code = 2209) 9.2 MG/DL PROTEIN, TOTAL (test code = 2229) 7.0 G/DL ALBUMIN (test code = 2201) 4.4 G/DL CALC GLOBULIN (test code = 2240) 2.6 G/DL CALC A/G RATIO (test code = 2234) 1.7 RATIO BILIRUBIN, TOTAL (test code = 2207) 0.4 MG/DL ALKALINE PHOSPHATASE (test code = 2204) 70 U/L AST (test code = 2218) 33 U/L ALT (test code = 2219) 59 U/L [id number] 00:00:00* Test Item Value Reference Range Interpretation Comme [facility] TSH, THIRD GENERATION (test code = 2821) 1.870 UIU/ML [id number] 00:00:00* Test Item Value Reference Range Interpretation Comme [facility] TSH, THIRD GENERATION (test code = 2821) 1.870 UIU/ML [id number] 00:00:00* Test Item Value Reference Range Interpretation Comme [facility] TSH, THIRD GENERATION (test code = 2821) 1.870 UIU/ML VITAMIN D, 25 [id number] 00:00:00* Test Item Value Reference Range Interpretation Comme [facility] VITAMIN D, 25 OH (test code = 4958) 22 NG/ML VITAMIN D, 25 [id number] 00:00:00* Test Item Value Reference Range Interpretation Comme nts VITAMIN D, 25 OH (test code = 4958) 22 NG/ML LIPID [id number] 00:00:00* Test Item Value Reference Range Interpretation Comme nts CHOLESTEROL (test code = 2210) 231 MG/DL TRIGLYCERIDES (test code = 2232) 167 MG/DL HDL CHOLESTEROL (test code = 2220) 38 MG/DL CALC LDL CHOL (test code = 2237) 161 MG/DL RISK RATIO LDL/HDL (test cod e = 2238) 4.24 RATIO LIPID [id number] 00:00:00* Test Item Value Reference Range Interpretation Comme nts CHOLESTEROL (test code = 2210) 231 MG/DL TRIGLYCERIDES (test code = 2232) 167 MG/DL HDL CHOLESTEROL (test code = 2220) 38 MG/DL CALC LDL CHOL (test code = 2237) 161 MG/DL RISK RATIO LDL/HDL (test cod e = 2238) 4.24 RATIO COMPREHENSIVE METABOLIC [id number] 00:00:00* Test Item Value Reference Range Interpretation Comme nts GLUCOSE (test code = 2217) 111 MG/DL BUN (test code = 2208) 15 MG/DL CREATININE (test code = 2214) 1.06 MG/DL eGFR (2020 CKD-EPI) (test co de = 47685) 82 ML/MIN/1.73 CALC BUN/CREAT (test code = 2235) 14 RATIO SODIUM (test code = 2231) 140 MEQ/L POTASSIUM (test code = 2228) 4.7 MEQ/L CHLORIDE (test code = 2215) 104 MEQ/L CARBON DIOXIDE (test code = 2206) 24 MEQ/L CALCIUM (test code = 2209) 9.2 MG/DL PROTEIN, TOTAL (test code = 2229) 7.0 G/DL ALBUMIN (test code = 2201) 4.4 G/DL CALC GLOBULIN (test code = 2240) 2.6 G/DL CALC A/G RATIO (test code = 2234) 1.7 RATIO BILIRUBIN, TOTAL (test code = 2207) 0.4 MG/DL ALKALINE PHOSPHATASE (test code = 2204) 70 U/L AST (test code = 2218) 33 U/L ALT (test code = 2219) 59 U/L COMPREHENSIVE METABOLIC [id number] 00:00:00* Test Item Value Reference Range Interpretation Comme nts GLUCOSE (test code = 7) 111 MG/DL BUN (test code = 2207) 15 MG/DL CREATININE (test code = 2214) 1.06 MG/DL eGFR (2020 CKD-EPI) (test co de = 46845) 82 ML/MIN/1.73 CALC BUN/CREAT (test code = 2235) 14 RATIO SODIUM (test code = 223) 140 MEQ/L POTASSIUM (test code = 2228) 4.7 MEQ/L CHLORIDE (test code = 2215) 104 MEQ/L CARBON DIOXIDE (test code = 2206) 24 MEQ/L CALCIUM (test code = 2209) 9.2 MG/DL PROTEIN, TOTAL (test code = 2228) 7.0 G/DL ALBUMIN (test code = 2200) 4.4 G/DL CALC GLOBULIN (test code = 2240) 2.6 G/DL CALC A/G RATIO (test code = 2234) 1.7 RATIO BILIRUBIN, TOTAL (test code = 2206) 0.4 MG/DL ALKALINE PHOSPHATASE (test code = 2203) 70 U/L AST (test code = 8) 33 U/L ALT (test code = 2219) 59 U/L [id number] 00:00:00* Test Item Value Reference Range Interpretation Comme [facility] TSH, THIRD GENERATION (test code = 2821) 1.870 UIU/ML [id number] 00:00:00* Test Item Value Reference Range Interpretation Comme [facility] TSH, THIRD GENERATION (test code = 2821) 1.870 UIU/ML [id number] 00:00:00* Test Item Value Reference Range Interpretation Comme [facility] TSH, THIRD GENERATION (test code = 2821) 1.870 UIU/ML VITAMIN D, 25 [id number] 00:00:00* Test Item Value Reference Range Interpretation Comme [facility] VITAMIN D, 25 OH (test code = 4958) 22 NG/ML VITAMIN D, 25 [id number] 00:00:00* Test Item Value Reference Range Interpretation Comme [facility] VITAMIN D, 25 OH (test code = 4958) 22 NG/ML HEMOGLOBIN [id number] 22:39:33* Test Item Value Reference Range Interpretation Comme [facility] HEMOGLOBIN A1c (test code = 04584) 6.6 % 4.2-5.6 H [employer] GUIDELINES FOR HGB A1C: PREDIABETES/INCREASED RISK . . . . . . . 5.7-6.4% DIAGNOSIS OF DIABETES . . . . . . . . . >=6.5% WITH CONFIRMATION OR APPROPRIATE SYMPTOMS NOTE: ASSAY MAY BE AFFECTED BY HEMOGLOBINOPATHIES (SICKLE CELL ANEMIA, S-C DISEASE, OTHERS) OR ARTIFICIALLY LOWERED BY DECREASED RED CELL SURVIVAL (HEMOLYTIC ANEMIAS, BLOOD LOSS, ETC.). CONSIDER ALTERNATE TESTING OR LABORATORY CONSULTATION. UNLESS OTHERWISE INDICATED, ALL TESTING PERFORMED [facility] [employer] [address] [place] [id number] CARTOGRAPHY PROFESSOR: DARVIN DALEY M.D. CLIA NUMBER [id number] [place]. [id number] CBC W/AUTO DIFF WITH [id number] 17:48:36* Test Item Value Reference Range Interpretation Comme nts WBC (test code = 1001) 7.3 K/UL 3.5-11.0 RBC (test code = 1002) 5.02 M/UL 4.50-6.10 HEMOGLOBIN (test code = 1003) 14.8 G/DL 13.5-17.0 HEMATOCRIT (test code = 1004) 44.0 % 40.0-51.0 MCV (test code = 1005) 87.6 fL 80.0-99.0 MCH (test code = 1006) 29.5 PG 25.0-33.0 MCHC (test code = 1007) 33.6 G/DL 31.0-36.0 RDW (test code = 1038) 13.1 % 11.5-15.0 NEUTROPHILS (test code = 1008) 59.5 % LYMPHOCYTES (test code = 1010) 29.3 % MONOCYTES (test code = 1011) 7.7 % EOSINOPHILS (test code = 1012) 2.5 % BASOPHILS (test code = 1013) 0.4 % IMMATURE GRANULOCYTES (test code = 1036) 0.6 % NUCLEATED RBCS (test code = 1065) 0.0 /100 WBC'S See_Comment [Automated M-DISC] The system which generated this result transmitted reference range: 0.0. The reference range was not used to interpret this result as normal/abnormal. PLATELET COUNT (test code = 1015) 264 K/UL 130-400 ABSOLUTE NEUTROPHILS (test code = 1066) 4.32 K/UL 1.50-7.50 ABSOLUTE LYMPHOCYTES (test code = 1067) 2.13 K/UL 1.00-4.00 ABSOLUTE MONOCYTES (test code = 1068) 0.56 K/UL 0.20-1.00 ABSOLUTE EOSINOPHILS (test code = 1040) 0.18 K/UL 0.00-0.50 ABSOLUTE BASOPHILS (test code = 1069) 0.03 K/UL 0.00-0.20 ABS IMMATURE GRANULOCYTES (test code = 1020) 0.04 K/UL 0.00-0.10 ABS NUCLEATED RBCS (test code = 02370) 0.00 K/UL 0.00-0.11 CBC W/AUTO [id number] 00:00:00* Test Item Value Reference Range Interpretation Comme nts WBC (test code = 1001) 7.3 K/UL RBC (test code = 1002) 5.02 M/UL HEMOGLOBIN (test code = 1003) 14.8 G/DL HEMATOCRIT (test code = 1004) 44.0 % MCV (test code = 1005) 87.6 fL MCH (test code = 1006) 29.5 PG MCHC (test code = 1007) 33.6 G/DL RDW (test code = 1038) 13.1 % NEUTROPHILS (test code = 1008) 59.5 % LYMPHOCYTES (test code = 1010) 29.3 % MONOCYTES (test code = 1011) 7.7 % EOSINOPHILS (test code = 1012) 2.5 % BASOPHILS (test code = 1013) 0.4 % IMMATURE GRANULOCYTES (test code = 1036) 0.6 % NUCLEATED RBCS (test code = 1065) 0.0 /100WBC'S PLATELET COUNT (test code = 1015) 264 K/UL ABSOLUTE NEUTROPHILS (test c ode = 1066) 4.32 K/UL ABSOLUTE LYMPHOCYTES (test c ode = 1067) 2.13 K/UL ABSOLUTE MONOCYTES (test cod e = 1068) 0.56 K/UL ABSOLUTE EOSINOPHILS (test c ode = 1040) 0.18 K/UL ABSOLUTE BASOPHILS (test cod e = 1069) 0.03 K/UL ABS IMMATURE GRANULOCYTES (t est code = 1020) 0.04 K/UL ABS NUCLEATED RBCS (test cod e = 09953) 0.00 K/UL CBC W/AUTO [id number] 00:00:00* Test Item Value Reference Range Interpretation Comme nts WBC (test code = 1001) 7.3 K/UL RBC (test code = 1002) 5.02 M/UL HEMOGLOBIN (test code = 1003) 14.8 G/DL HEMATOCRIT (test code = 1004) 44.0 % MCV (test code = 1005) 87.6 fL MCH (test code = 1006) 29.5 PG MCHC (test code = 1007) 33.6 G/DL RDW (test code = 1038) 13.1 % NEUTROPHILS (test code = 1008) 59.5 % LYMPHOCYTES (test code = 1010) 29.3 % MONOCYTES (test code = 1011) 7.7 % EOSINOPHILS (test code = 1012) 2.5 % BASOPHILS (test code = 1013) 0.4 % IMMATURE GRANULOCYTES (test code = 1036) 0.6 % NUCLEATED RBCS (test code = 1065) 0.0 /100WBC'S PLATELET COUNT (test code = 1015) 264 K/UL ABSOLUTE NEUTROPHILS (test c ode = 1066) 4.32 K/UL ABSOLUTE LYMPHOCYTES (test c ode = 1067) 2.13 K/UL ABSOLUTE MONOCYTES (test cod e = 1068) 0.56 K/UL ABSOLUTE EOSINOPHILS (test c ode = 1040) 0.18 K/UL ABSOLUTE BASOPHILS (test cod e = 1069) 0.03 K/UL ABS IMMATURE GRANULOCYTES (t est code = 1020) 0.04 K/UL ABS NUCLEATED RBCS (test cod e = 94825) 0.00 K/UL HEMOGLOBIN [id number] 00:00:00* Test Item Value Reference Range Interpretation Comme nts HEMOGLOBIN A1c (test code = 50534) 6.6 % HEMOGLOBIN [id number] 00:00:00* Test Item Value Reference Range Interpretation Comme nts HEMOGLOBIN A1c (test code = 98991) 6.6 % HEMOGLOBIN [id number] 00:00:00* Test Item Value Reference Range Interpretation Comme nts HEMOGLOBIN A1c (test code = 56387) 6.6 % CBC W/AUTO [id number] 00:00:00* Test Item Value Reference Range Interpretation Comme nts WBC (test code = 1001) 7.3 K/UL RBC (test code = 1002) 5.02 M/UL HEMOGLOBIN (test code = 1003) 14.8 G/DL HEMATOCRIT (test code = 1004) 44.0 % MCV (test code = 1005) 87.6 fL MCH (test code = 1006) 29.5 PG MCHC (test code = 1007) 33.6 G/DL RDW (test code = 1038) 13.1 % NEUTROPHILS (test code = 1008) 59.5 % LYMPHOCYTES (test code = 1010) 29.3 % MONOCYTES (test code = 1011) 7.7 % EOSINOPHILS (test code = 1012) 2.5 % BASOPHILS (test code = 1013) 0.4 % IMMATURE GRANULOCYTES (test code = 1036) 0.6 % NUCLEATED RBCS (test code = 1065) 0.0 /100WBC'S PLATELET COUNT (test code = 1015) 264 K/UL ABSOLUTE NEUTROPHILS (test c ode = 1066) 4.32 K/UL ABSOLUTE LYMPHOCYTES (test c ode = 1067) 2.13 K/UL ABSOLUTE MONOCYTES (test cod e = 1068) 0.56 K/UL ABSOLUTE EOSINOPHILS (test c ode = 1040) 0.18 K/UL ABSOLUTE BASOPHILS (test cod e = 1069) 0.03 K/UL ABS IMMATURE GRANULOCYTES (t est code = 1020) 0.04 K/UL ABS NUCLEATED RBCS (test cod e = 85114) 0.00 K/UL CBC W/AUTO [id number] 00:00:00* Test Item Value Reference Range Interpretation Comme nts WBC (test code = 1001) 7.3 K/UL RBC (test code = 1002) 5.02 M/UL HEMOGLOBIN (test code = 1003) 14.8 G/DL HEMATOCRIT (test code = 1004) 44.0 % MCV (test code = 1005) 87.6 fL MCH (test code = 1006) 29.5 PG MCHC (test code = 1007) 33.6 G/DL RDW (test code = 1038) 13.1 % NEUTROPHILS (test code = 1008) 59.5 % LYMPHOCYTES (test code = 1010) 29.3 % MONOCYTES (test code = 1011) 7.7 % EOSINOPHILS (test code = 1012) 2.5 % BASOPHILS (test code = 1013) 0.4 % IMMATURE GRANULOCYTES (test code = 1036) 0.6 % NUCLEATED RBCS (test code = 1065) 0.0 /100WBC'S PLATELET COUNT (test code = 1015) 264 K/UL ABSOLUTE NEUTROPHILS (test c ode = 1066) 4.32 K/UL ABSOLUTE LYMPHOCYTES (test c ode = 1067) 2.13 K/UL ABSOLUTE MONOCYTES (test cod e = 1068) 0.56 K/UL ABSOLUTE EOSINOPHILS (test c ode = 1040) 0.18 K/UL ABSOLUTE BASOPHILS (test cod e = 1069) 0.03 K/UL ABS IMMATURE GRANULOCYTES (t est code = 1020) 0.04 K/UL ABS NUCLEATED RBCS (test cod e = 10634) 0.00 K/UL CBC W/AUTO [id number] 00:00:00* Test Item Value Reference Range Interpretation Comme nts WBC (test code = 1001) 7.3 K/UL RBC (test code = 1002) 5.02 M/UL HEMOGLOBIN (test code = 1003) 14.8 G/DL HEMATOCRIT (test code = 1004) 44.0 % MCV (test code = 1005) 87.6 fL MCH (test code = 1006) 29.5 PG MCHC (test code = 1007) 33.6 G/DL RDW (test code = 1038) 13.1 % NEUTROPHILS (test code = 1008) 59.5 % LYMPHOCYTES (test code = 1010) 29.3 % MONOCYTES (test code = 1011) 7.7 % EOSINOPHILS (test code = 1012) 2.5 % BASOPHILS (test code = 1013) 0.4 % IMMATURE GRANULOCYTES (test code = 1036) 0.6 % NUCLEATED RBCS (test code = 1065) 0.0 /100WBC'S PLATELET COUNT (test code = 1015) 264 K/UL ABSOLUTE NEUTROPHILS (test c ode = 1066) 4.32 K/UL ABSOLUTE LYMPHOCYTES (test c ode = 1067) 2.13 K/UL ABSOLUTE MONOCYTES (test cod e = 1068) 0.56 K/UL ABSOLUTE EOSINOPHILS (test c ode = 1040) 0.18 K/UL ABSOLUTE BASOPHILS (test cod e = 1069) 0.03 K/UL ABS IMMATURE GRANULOCYTES (t est code = 1020) 0.04 K/UL ABS NUCLEATED RBCS (test cod e = 10621) 0.00 K/UL HEMOGLOBIN [id number] 00:00:00* Test Item Value Reference Range Interpretation Comme nts HEMOGLOBIN A1c (test code = 98448) 6.6 % HEMOGLOBIN [id number] 00:00:00* Test Item Value Reference Range Interpretation Comme nts HEMOGLOBIN A1c (test code = 77028) 6.6 % HEMOGLOBIN [id number] 00:00:00* Test Item Value Reference Range Interpretation Comme nts HEMOGLOBIN A1c (test code = 25073) 6.6 % CBC W/AUTO [id number] 00:00:00* Test Item Value Reference Range Interpretation Comme nts WBC (test code = 1001) 7.3 K/UL RBC (test code = 1002) 5.02 M/UL HEMOGLOBIN (test code = 1003) 14.8 G/DL HEMATOCRIT (test code = 1004) 44.0 % MCV (test code = 1005) 87.6 fL MCH (test code = 1006) 29.5 PG MCHC (test code = 1007) 33.6 G/DL RDW (test code = 1038) 13.1 % NEUTROPHILS (test code = 1008) 59.5 % LYMPHOCYTES (test code = 1010) 29.3 % MONOCYTES (test code = 1011) 7.7 % EOSINOPHILS (test code = 1012) 2.5 % BASOPHILS (test code = 1013) 0.4 % IMMATURE GRANULOCYTES (test code = 1036) 0.6 % NUCLEATED RBCS (test code = 1065) 0.0 /100WBC'S PLATELET COUNT (test code = 1015) 264 K/UL ABSOLUTE NEUTROPHILS (test c ode = 1066) 4.32 K/UL ABSOLUTE LYMPHOCYTES (test c ode = 1067) 2.13 K/UL ABSOLUTE MONOCYTES (test cod e = 1068) 0.56 K/UL ABSOLUTE EOSINOPHILS (test c ode = 1040) 0.18 K/UL ABSOLUTE BASOPHILS (test cod e = 1069) 0.03 K/UL ABS IMMATURE GRANULOCYTES (t est code = 1020) 0.04 K/UL ABS NUCLEATED RBCS (test cod e = 08121) 0.00 K/UL Notes Date/Time Note Provider Source 2022-10-22 15:29:11 [id number] :29:11 Chief Complaint Patient presents with Follow-up Psoriasis F/U [place] Manzanares [id number] UtziGE8520-23-13R13:58:31Nurse [id number]. [id number] for patient [facility] [place], [place] [id number]:58:[id number] .1.72.3.15|1.2.840.029413.1.13.131. [id number] [facility]"
--- NOTE | 2023-06-24 11:52 | RAD REPORT ---
EXAM DESCRIPTION: US - Abdomen Exam Limited - 06/24/2023 11:39 am CLINICAL HISTORY: ruq eval;Abd pain COMPARISON: No comparisons FINDINGS: The gallbladder demonstrates multiple shadowing gallstones. No pericholecystic fluid or ga llbladder wall thickening. The common bile duct is dilated measuring 10 mm. The liver demonstrates no findings of intrahepatic biliary dilatation. Hepatic steatosis . IMPRESSION: Cholelithiasis without sonographic evidence of acute cholecystitis. Extrahepatic biliary duct dilatation. Consider MRCP for further evaluation.
[2023-06-24 11:58] LABS: Absolute Eosinophils 0.1 K/uL (0-0.5); Absolute Lymphocytes (CBC) 1.2 K/uL (0.7-4.9); Absolute Monocytes 0.6 K/uL (0.1-1.3); Absolute Neutrophil 4.4 K/uL (1.8-8.0); Basophils % 0.4 % (0-1.3); Eosinophils % 1.2 % (0-4.4); Hematocrit 44.4 % (39.6-49.0); Hemoglobin 14.8 g/dL (13.6-17.9); Lymphocytes % 19.6 % (15.3-44.8); MCH 27.8 pg (27.0-35.0); MCHC 33.3 g/dL (32.0-36.0); MCV 83.5 fL (80-100); MPV 8.8 fL (7.6-11.3); Monocytes % 9.4 % (3.3-12.3); Neutrophils % 69.4 % (41.7-73.7); Nucleated Red Blood Cells % 0.2 % (0-0); Platelets 269 thou/uL (152-406); RBC Red Blood Cell Count 5.32 M/uL (4.33-5.43); Red Cell Distribution Width 14.9 % (12.1-15.2)
[2023-06-24 12:21] LABS: Albumin 4.1 g/dL (3.4-5.0); Albumin/Globulin Ratio 1.1 (1.1-1.8); Anion Gap 9.1 mEq/L (5.0-15.0); Bilirubin Total 3.8 mg/dL (0.2-1.0); Globulin 3.6 g/dL (2.3-3.5); Potassium 4.1 mEq/L (3.5-5.1); Protein, Total 7.7 g/dL (6.4-8.2)
--- NOTE | 2023-06-24 13:05 | ER ---
Nurse's Notes [facility] Name: Beck Weber Age: 58 yrs Sex: Male : 1965 Arrival Date: 06/24/2023 Time: 10:32 Bed 2 Private MD: Anil Zuniga Diagnosis: Choledocholithiasis Presentation: 06/23 10:38 Chief complaint: Patient states: Epigastric pain that radiates to back, started ph yesterday, hx of gallstones, states that this feel similar. Coronavirus screen: Vaccine status: Patient reports receiving the 1st dose of the Covid vaccine. Ebola Screen: No symptoms or risks identified at this time. Initial Sepsis Screen: Does the patient meet any 2 criteria? No. Patient's initial sepsis screen is negative. Does the patient have a suspected source of infection? No. Patient's initial sepsis screen is negative. Risk Assessment: Do you want to hurt yourself or someone else? Patient reports no desire to harm self or others. Onset of symptoms was June 24, 2023. 10:38 Method Of Arrival: Ambulatory ph 10:38 Acuity: PAUL 3 ph Triage Assessment: 10:39 General: Appears in no apparent distress. Behavior is calm, cooperative. Pain: ph Complains of pain in epigastric area Pain radiates to back. GI: Reports epigastric pain, Patient currently denies diarrhea, nausea, vomiting. Historical: - Allergies: 10:39 No Known Allergies; ph - PMHx: 10:39 Hypertension; ph - Immunization history:: Adult Immunizations unknown. - Social history:: Smoking status: Patient denies any tobacco usage or history of. Screenin:48 [facility] ED Fall Risk Assessment (Adult) History of falling in the last 3 months, ll1 including since admission No falls in past 3 months (0 pts) Confusion or Disorientation No (0 pts) Intoxicated or Sedated No (0 pts) Impaired Gait No (0 pts) Mobility Assist Device Used No (0 pt) Altered Elimination No (0 pt) Score/Fall Risk Level 0 - 2 = Low Risk Maintained a safe environment, Hourly rounding (assess needs \T\ fall precautionary measures) done. Abuse screen: Denies threats or abuse. Nutritional screening: No deficits noted. Tuberculosis screening: No symptoms or risk factors identified. Assessment: 11:33 General: Appears uncomfortable, Behavior is calm, cooperative, appropriate for age. ll1 Pain: Complains of pain in epigastric area Pain radiates to back Quality of pain is described as aching. GI: Abdomen is round Bowel sounds present X 4 quads. Abd is soft and non tender X 4 quads. Reports upper abdominal pain. 11:50 Reassessment: No changes from previously documented assessment. Patient and/or family ll1 updated on plan of care and expected duration. Pain level reassessed. 12:48 Reassessment: No changes from previously documented assessment. Patient and/or family ll1 updated on plan of care and expected duration. Pain level reassessed. Patient is alert, oriented x 3, equal unlabored respirations, skin warm/dry/pink. 13:29 Reassessment: No changes from previously documented assessment. Patient and/or family ll1 updated on plan of care and expected duration. Pain level reassessed. Patient is alert, oriented x 3, equal unlabored respirations, skin warm/dry/pink. 15:48 Reassessment: No changes from previously documented assessment. Patient and/or family ll1 updated on plan of care and expected duration. Pain level reassessed. Patient is alert, oriented x 3, equal unlabored respirations, skin warm/dry/pink. Vital Signs: 10:38 BP 146 / 91; Pulse 91; Resp 18; Temp 97.6; Pulse Ox 98% on R/A; Weight 102.06 kg; ph Height 5 ft. 6 in. ; 13:29 BP 130 / 89; Pulse 72; Resp 16; Temp 98; Pulse Ox 95% ; Pain 1/10; ll1 15:47 BP 131 / 81; Pulse 71; Resp 16; Temp 98.1; Pulse Ox 99% ; Pain 2/10; ll1 10:38 Body Mass Index 36.32 (102.06 kg, 167.64 cm) ph 13:29 Pain Scale: Adult ll1 15:47 Pain Scale: Adult ll1 ED Course: 10:34 Patient arrived in ED. mr 10:34 Anil Zuniga DO is Private Physician. mr 10:38 Josh Means MD is Attending Physician. ec2 10:39 Triage completed. ph 10:40 Arm band placed on Patient placed in waiting room, Patient notified of wait time. ph 11:22 Fernanda Valdes, RN is Primary Nurse. ll1 11:22 Patient placed in an exam room, on a stretcher. ll1 11:41 Abdomen Limited US In Process Unspecified. EDMS 11:51 Initial lab(s) drawn, by me, sent to lab. Inserted saline lock: 22 gauge in left ll1 antecubital area, using aseptic technique. Blood collected. 12:00 Pillow given. ll1 12:54 Urinalysis w/ reflexes Sent. ll1 12:54 Urine collected: clean catch specimen, clear, Amount Voided: 350mL. ll1 15:48 Patient has correct armband on for positive identification. Bed in low position. Call 1 light in reach. Provided Education on: Need for transfer. Client placed on continuous cardiac and pulse oximetry monitoring. NIBP monitoring applied. 15:49 No provider procedures requiring assistance completed. Patient transferred, IV remains ll1 in place. Administered Medications: 11:50 Drug: NS 0.9% IV 1000 ml IV at 1 bolus Per protocol; 1000 mL bolus Route: IV; Rate: 1 ll1 bolus; Site: left antecubital; 12:53 Follow up: Response: No adverse reaction; IV Status: Completed infusion; IV Intake: ll1 1000ml 11:50 Drug: Famotidine IVP 20 mg IVP once; dilute with 10 mL 0.9% NaCl; give over 2 minutes ll1 Route: IVP; Site: left antecubital; 12:53 Follow up: Response: No adverse reaction ll1 11:50 Drug: Ondansetron IVP 4 mg IVP once; over 2 minutes Route: IVP; Site: left antecubital; ll1 12:53 Follow up: Response: No adverse reaction ll1 11:50 Drug: morphine IVP or IV 4 mg IVP once over 4 mins Route: IVP; Infused Over: 4 mins; ll1 Site: left antecubital; 12:53 Follow up: Response: No adverse reaction; Pain is decreased; RASS: Alert and Calm (0) ll1 15:47 Drug: morphine IVP or IV 2 mg IVP once over 4 mins Route: IVP; Infused Over: 4 mins; ll1 Site: left antecubital; 15:50 Follow up: Response: No adverse reaction ll1 Medication: 15:48 VIS not applicable for this client. ll1 Intake: 12:53 IV: 1000ml; Total: 1000ml. ll1 Outcome: 13:04 ER care complete, transfer ordered by . ec2 15:49 Transferred by ground EMS to [facility], Transfer form completed. ll1 Note: report given to Venkat Greer RN 15:49 Condition: stable 15:49 Instructed on the need for transfer, 16:01 Patient left the ED. ll1 Signatures: Dispatcher [employer] Alana Poole, Reg Reg mr Caity Espino RN RN ph Lewis, Lynsay, RN RN ll1 Josh Means MD MD ec2 Corrections: (The following items were deleted from the chart) 17:57 15:49 Transferred by ground EMS to [facility], Transfer form ll1 completed. ll1
--- NOTE | 2023-06-24 13:05 | EDPHYS ---
Physician Documentation [facility] Name: Beck Weber Age: 58 yrs Sex: Male : 1965 Arrival Date: 06/24/2023 Time: 10:32 Bed 2 Private MD: Anil Zuniga ED Physician Josh Means HPI: 06/23 11:19 This 58 yrs old Male presents to ER via Ambulatory with complaints of ec2 Abdominal Pain. 11:19 Patient arrives today for evaluation of upper abdominal pain. History of ec2 cholelithiasis. Patient reports history of similar. Patient reports no previous abdominal surgeries. States that the pain worsened yesterday. Patient reports episodic pain over the past week. Reports associated with food intake.. Historical: - Allergies: 10:39 No Known Allergies; ph - PMHx: 10:39 Hypertension; ph - Immunization history:: Adult Immunizations unknown. - Social history:: Smoking status: Patient denies any tobacco usage or history of. ROS: 11:19 Constitutional: as per hpi ec2 Exam: 11:19 Constitutional: GEN: NAD Head: atraumatic Eyes: EOMI Ears: External ears are ec2 normal. CV: regular rate LUNGS: no respiratory distress ABD: non-distended SKIN: no evidence of rashes MSK: no evidence of trauma NEURO: moves all extremities equally, soft, minimally tender in the epigastric, no guarding, not rigid Vital Signs: 10:38 BP 146 / 91; Pulse 91; Resp 18; Temp 97.6; Pulse Ox 98% on R/A; Weight 102.06 kg; ph Height 5 ft. 6 in. ; 13:29 BP 130 / 89; Pulse 72; Resp 16; Temp 98; Pulse Ox 95% ; Pain 1/10; ll1 15:47 BP 131 / 81; Pulse 71; Resp 16; Temp 98.1; Pulse Ox 99% ; Pain 2/10; ll1 10:38 Body Mass Index 36.32 (102.06 kg, 167.64 cm) ph 13:29 Pain Scale: Adult ll1 15:47 Pain Scale: Adult ll1 MDM: 10:56 Patient medically screened. ec2 11:19 Data reviewed: vital signs. ED course: Patient arrives today for evaluation of upper ec2 abdominal pain. Examination remarkable for well-appearing nontoxic individual who has abdominal findings noted above. Will obtain lab work, ultrasound. Evaluate for cholelithiasis, cholecystitis, gastritis.. 12:06 ED course: Patient with CBD dilation at 10 mm. Patient will require MRCP and GI ec2 evaluation. GI unable to perform interventional procedure here, will transfer to appropriate facility.. 14:00 ED course: I discussed the case with hospitalist at [facility] who ec2 agrees to except patient for transfer.. 06/23 11:09 Order name: CBC with Diff; Complete Time: 12:00 ec2 06/23 11:09 Order name: CMP; Complete Time: 13:00 ec2 06/23 11:09 Order name: Lipase; Complete Time: 13:00 ec2 06/23 11:09 Order name: Urinalysis w/ reflexes; Complete Time: 13:57 ec2 06/23 11:09 Order name: Abdomen Limited US; Complete Time: 11:55 ec2 06/23 11:09 Order name: IV Saline Lock; Complete Time: 11:50 ec2 06/23 11:09 Order name: Labs collected and sent; Complete Time: 11:50 ec2 Administered Medications: 11:50 Drug: NS 0.9% IV 1000 ml IV at 1 bolus Per protocol; 1000 mL bolus Route: IV; Rate: 1 ll1 bolus; Site: left antecubital; 12:53 Follow up: Response: No adverse reaction; IV Status: Completed infusion; IV Intake: ll1 1000ml 11:50 Drug: Famotidine IVP 20 mg IVP once; dilute with 10 mL 0.9% NaCl; give over 2 minutes ll1 Route: IVP; Site: left antecubital; 12:53 Follow up: Response: No adverse reaction ll1 11:50 Drug: Ondansetron IVP 4 mg IVP once; over 2 minutes Route: IVP; Site: left antecubital; ll1 12:53 Follow up: Response: No adverse reaction ll1 11:50 Drug: morphine IVP or IV 4 mg IVP once over 4 mins Route: IVP; Infused Over: 4 mins; ll1 Site: left antecubital; 12:53 Follow up: Response: No adverse reaction; Pain is decreased; RASS: Alert and Calm (0) ll1 15:47 Drug: morphine IVP or IV 2 mg IVP once over 4 mins Route: IVP; Infused Over: 4 mins; ll1 Site: left antecubital; 15:50 Follow up: Response: No adverse reaction ll1 Disposition Summary: 06/24/23 13:04 Transfer Ordered Notes: Transfer Location: Other Acute Care Facility ec2 Reason: Higher level of care ec2 Condition: Stable ec2 Problem: new ec2 Symptoms: have improved ec2 Accepting Physician: Transferring Doc(06/24/23 16:01) ll1 Diagnosis - Choledocholithiasis ec2 Forms: - Medication Reconciliation Form ec2 - SBAR form ec2 Signatures: Dispatcher [employer] EDCaity Gaston RN RN Fernanda Valdes RN RN ll1 Josh Means MD MD ec2 Corrections: (The following items were deleted from the chart) 16:01 13:04 Transferring Doc ec2 ll1
[2023-06-24 13:10] LABS: Specific Gravity 1.006 (1.005-1.030); Urine Bilirubin NEGATIVE (Negative); Urine Blood Negative (Negative); Urine Clarity Clear (Clear); Urine Color Yellow (Yellow); Urine Glucose NEGATIVE (Negative); Urine Ketones NEGATIVE (Negative); Urine Microscopic Reflex YN NO UMIC; Urine Nitrite NEGATIVE (Negative); Urine Protein NEGATIVE (Negative); Urine Urobilinogen Normal (Normal)
[2023-06-24 17:00] VITALS: BP 131/81; TEMP 98.1; O2SAT 99
== END ==
LOC: ER 10:32
DX: K80.50 Calculus of bile duct without cholangitis or cholecystitis without obstruction (principal); I10 Essential (primary) hypertension
CPT/HCPCS: 85025; 36415; 81003; 83690; 80053; 76705; J2270; J2405; J7030; 96361; 96374; 96375; 99285